=== PATIENT | male | born 1955 | race Caucasian/White ===

== ENCOUNTER → 2017-07-12 | Outpatient (REF) | payer MEDICARE ==
[2017-07-12 14:52] LABS: OSMOLALITY URINE 365 MOSM/KG (500-800)
== END ==
LOC: M LAB REF 13:27
PROVIDERS: ATTEND Internal Medicine Nephrology
DX: E87.1 Hypo-osmolality and hyponatremia (principal)

== ENCOUNTER → 2017-08-22 | Outpatient (REF) | payer MEDICARE ==
[2017-08-22 13:36] LABS: OSMOLALITY URINE 221 MOSM/KG (500-800)
[2017-08-22 14:24] LABS: BACTERIA, URINE LARGE AMOUNT; HYALINE CAST, URINE NONE SEEN /lpf (0-1); MICROSCOPIC EXAM PERFORMED; RBC, URINE NONE SEEN /hpf (0-3); SQUAMOUS EPITHELIAL CELL URINE NONE SEEN /hpf (SMALL AMT)
== END ==
LOC: M LAB REF 13:13
PROVIDERS: ATTEND Internal Medicine Nephrology
DX: R31.29 Other microscopic hematuria (principal); N39.0 Urinary tract infection, site not specified; E87.1 Hypo-osmolality and hyponatremia; F10.20 Alcohol dependence, uncomplicated
CPT/HCPCS: 81015; 83935; 84300; 87086; 87205; G0480

== ENCOUNTER → 2018-01-10 | Outpatient (REF) | payer MEDICARE ==
[2018-01-10 13:57] LABS: ETHYL ALCOHOL (ETHANOL) 0.004 % (0.000-0.010)
[2018-01-11 08:50] LABS: CORTISOL BASELINE 14.9 UG/DL (4.3-22.4)
== END ==
LOC: M LAB REF 12:51
DX: E87.1 Hypo-osmolality and hyponatremia (principal)
CPT/HCPCS: G0480

== ENCOUNTER 2020-06-30 05:19 | Emergency (ER) | payer MEDICARE, MEDICAID ==
[~2020-06-30] VITALS: Ht 188 cm; Wt 111.3 kg
[2020-06-30] MEDS ORDERED: DIVA500T94 PO (05:37)
[2020-06-30] MEDS ORDERED: GABA-843 PO (05:37)
[2020-06-30] MEDS ORDERED: PRAV80TA2 PO (05:37)
[2020-06-30] MEDS ORDERED: COMBAER6 INH (05:37)
[2020-06-30] MEDS ORDERED: ESOM40CA35 PO (05:37)
[2020-06-30] MEDS ORDERED: TRAZ-252 PO (05:37)
[2020-06-30] MEDS ORDERED: ANOR1AER PO (05:37)
[2020-06-30] MEDS ORDERED: TAMS1CAP17 PO (05:37)
[2020-06-30] MEDS ORDERED: SILD20TA11 PO (05:37)
[2020-06-30] MEDS ORDERED: LISI40TA PO (05:37)
[2020-06-30] MEDS ORDERED: AMLO1TAB25 PO (05:37)
[2020-06-30 06:15] VITALS: BP 104/63
== END 2020-06-30 07:12 | disposition left against medical advice (07) ==
LOC: M ED 05:19
DX: E87.1 Hypo-osmolality and hyponatremia (principal); F10.20 Alcohol dependence, uncomplicated; Z53.9 Procedure and treatment not carried out, unspecified reason; I10 Essential (primary) hypertension; E78.5 Hyperlipidemia, unspecified; J44.9 Chronic obstructive pulmonary disease, unspecified; K21.9 Gastro-esophageal reflux disease without esophagitis; Z87.891 Personal history of nicotine dependence; Z88.6 Allergy status to analgesic agent; Z88.1 Allergy status to other antibiotic agents; Z79.899 Other long term (current) drug therapy

== ENCOUNTER 2020-07-03 20:11 | Inpatient (IN) | payer MEDICARE, MEDICAID ==
[~2020-07-03] VITALS: Ht 188 cm; Wt 102.3 kg
[~2020-07-03 20:11] MED LIST: AMLO1TAB25 PO; ANOR1AER PO; COMBAER6 INH; DIVA500T94 PO; ESOM40CA35 PO; GABA-843 PO; LISI40TA PO; PRAV80TA2 PO; SILD20TA11 PO; TAMS1CAP17 PO; TRAZ-252 PO
[2020-07-03] MEDS ORDERED: LORazepam 2 MG TAB PO PRN (20:45)
[2020-07-03 21:25] LABS: HEMATOCRIT 38.5 % (42.0-52.0); HEMOGLOBIN 13.1 g/dl (13.5-17.5); MEAN CORPUSCULAR HEMOGLOBIN 32.4 pg (27.0-33.0); MEAN CORPUSCULAR VOLUME 95.3 fl (80.0-96.0); PLATELET COUNT, AUTOMATED 275 10^3/uL (150-450); RED BLOOD COUNT 4.04 10^6/uL (4.30-6.10); WHITE BLOOD COUNT 5.3 10^3/uL (4.0-10.0)
[2020-07-03] MEDS: MULTIVITAMINS/MINERALS THERAP 1 TAB PO SCH (21:38)
[2020-07-03] MEDS: THIAMINE 100 MG TAB PO SCH (21:38)
[2020-07-03] MEDS: FOLIC ACID 1 MG TAB PO SCH (21:38)
[2020-07-03 22:00] LABS: ACETAMINOPHEN LEVEL < 2.0 UG/ML (10.0-30.0); ALBUMIN 3.7 GM/DL (3.2-5.2); ALT/SGPT 34 U/L (12-78); BILIRUBIN,DIRECT 0.2 MG/DL (0.0-0.2); BILIRUBIN,TOTAL 0.4 MG/DL (0.2-1.0); BLOOD UREA NITROGEN 6 MG/DL (7-18); CALCIUM LEVEL 8.5 MG/DL (8.8-10.2); CARBON DIOXIDE LEVEL 24 MEQ/L (21-32); CHLORIDE LEVEL 98 MEQ/L (98-107); CREATININE FOR GFR 0.67 MG/DL (0.70-1.30); ETHYL ALCOHOL (ETHANOL) 0.219 % (0.000-0.010); GLOMERULAR FILTRATION RATE > 60.0 (>49); GLUCOSE, FASTING 88 MG/DL (70-100); POTASSIUM SERUM 4.1 MEQ/L (3.5-5.1); SALICYLATE LEVEL 6.4 MG/DL (5.0-30.0); SODIUM LEVEL 131 MEQ/L (136-145); THYROID STIMULATING HORMONE 0.584 uIU/ML (0.358-3.740); TOTAL PROTEIN 6.7 GM/DL (6.4-8.2)
[2020-07-03 22:23] LABS: AMPHETAMINES LEVEL URINE NEGATIVE (NEGATIVE); BARBITURATES URINE NEGATIVE (NEGATIVE); BENZODIAZEPINES URINE NEGATIVE (NEGATIVE); CANNABINOIDS URINE POSITIVE (NEGATIVE); COCAINE METABOLITE URINE NEGATIVE (NEGATIVE); METHADONE URINE NEGATIVE (NEGATIVE); OPIATES URINE NEGATIVE (NEGATIVE); PHENCYCLIDINE URINE NEGATIVE (NEGATIVE)
--- NOTE | 2020-07-04 07:16 | ECGEPIP ---
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
[2020-07-04] MEDS ORDERED: MULTIVITAMINS/MINERALS THERAP 1 TAB PO SCH (09:00)
[2020-07-04] MEDS ORDERED: OMEPRAZOLE 20 MG CAP PO ONE (09:00)
[2020-07-04] MEDS ORDERED: FOLIC ACID 1 MG TAB PO SCH (09:00)
[2020-07-04] MEDS ORDERED: TAMSULOSIN 0.4 MG CAP PO ONE (09:00)
[2020-07-04] MEDS ORDERED: amLODIPine 10 MG TAB PO ONE (09:00)
[2020-07-04] MEDS: THIAMINE 100 MG TAB PO SCH ×2 (09:18→21:00)
[2020-07-04] MEDS ORDERED: ASPI81TA26 PO (09:59)
--- NOTE | 2020-07-04 10:39 | REPVR ---
PROCEDURE INFORMATION: Exam: XR Chest, 1 View Exam date and time: 07/04/2020 10:13 AM Age: 65 years old Clinical indication: Cough TECHNIQUE: Imaging protocol: XR of the chest Views: 1 view. COMPARISON: No relevant prior studies available. FINDINGS: Lungs: Unremarkable. No consolidation. Pleural space: Unremarkable. No pleural effusion. No pneumothorax. Heart/Mediastinum: Unremarkable. No cardiomegaly. Bones/joints: Unremarkable. IMPRESSION: No evidence for acute pulmonary disease. Electronically signed by: Yves Fitzpatrick On 07/04/2020 10:38:53 AM
[2020-07-04] MEDS ORDERED: ONDANSETRON 4 MG ORAL DISINTEGRATING TAB PO ONE (11:15)
[2020-07-04] MEDS ORDERED: OXAZEPAM 15 MG CAP PO ONE (11:15)
[2020-07-04] MEDS: SYMBICORT 80/4.5MCG INHALER 6GM INH SCH ×2 (11:26→20:00)
[2020-07-04] MEDS: MULTIVITAMINS/MINERALS THERAP 1 TAB PO SCH (21:00)
[2020-07-04] MEDS: FOLIC ACID 1 MG TAB PO SCH (21:00)
[2020-07-04] MEDS ORDERED: traZODone 50 MG TAB PO ONE (22:45)
[2020-07-05] MEDS ORDERED: OXAZEPAM 15 MG CAP PO STA (08:26)
[2020-07-05] MEDS: THIAMINE 100 MG TAB PO SCH ×2 (08:37→20:11)
[2020-07-05] MEDS: SYMBICORT 80/4.5MCG INHALER 6GM INH SCH (08:44)
[2020-07-05] MEDS ORDERED: GABAPENTIN 300 MG CAP PO SCH (09:00)
[2020-07-05] MEDS ORDERED: THIAMINE 100 MG TAB PO SCH (09:00)
[2020-07-05] MEDS ORDERED: DIVALPROEX 500 MG TAB PO SCH (09:00)
[2020-07-05] MEDS ORDERED: ASPIRIN 81 MG ENTERIC TAB PO SCH (09:00)
[2020-07-05] MEDS ORDERED: TAMSULOSIN 0.4 MG CAP PO SCH (09:00)
[2020-07-05] MEDS ORDERED: ACETAMINOPHEN TAB 650MG DOSE (2X325MG) PO PRN (12:45)
[2020-07-05] MEDS ORDERED: LORazepam 2 MG TAB PO PRN (12:45)
[2020-07-05] MEDS ORDERED: MAALOX 30 ML SUSP *UDC PO PRN (12:45)
[2020-07-05] MEDS ORDERED: MOM 30ML SUSPENSION UDC PO PRN (12:45)
[2020-07-05] MEDS ORDERED: COMBIVENT RESPIMAT 100-20MCG INHALER 4GM INH PRN (15:00)
[2020-07-05] MEDS: TIOTROPIUM INHALER/CAPSULE (SPIRIVA) INH SCH (15:44)
[2020-07-05] MEDS: DIVALPROEX 500 MG TAB PO SCH ×2 (15:45→20:10)
[2020-07-05 15:55] VITALS: BP 148/108
[2020-07-05 15:57] VITALS: BP 148/108
[2020-07-05] MEDS: SALMETEROL DISKUS 50MCG INHALER (SEREVENT) INH SCH (20:06)
[2020-07-05] MEDS: PRAVASTATIN 20 MG TAB PO SCH (20:07)
[2020-07-05] MEDS: amLODIPine 10 MG TAB PO SCH (20:08)
[2020-07-05] MEDS: traZODone 50 MG TAB PO SCH (20:09)
[2020-07-05] MEDS: GABAPENTIN 300 MG CAP PO SCH (20:10)
[2020-07-05] MEDS: FOLIC ACID 1 MG TAB PO SCH (20:11)
[2020-07-05] MEDS: lisinopriL 40 MG TAB PO SCH (20:11)
[2020-07-05] MEDS ORDERED: traZODone 50 MG TAB PO ONE (21:00)
[2020-07-05] MEDS ORDERED: amLODIPine 10 MG TAB PO SCH (21:00)
[2020-07-05] MEDS ORDERED: lisinopriL 40 MG TAB PO SCH (21:00)
[2020-07-05] MEDS ORDERED: PRAVASTATIN 20 MG TAB PO SCH (21:00)
[2020-07-05] MEDS ORDERED: traZODone 50 MG TAB PO SCH (21:00)
[2020-07-06] VITALS: BP 158/98
[2020-07-06 06:32] VITALS: BP 138/64
[2020-07-06] MEDS: TIOTROPIUM INHALER/CAPSULE (SPIRIVA) INH SCH (07:36)
[2020-07-06] MEDS ORDERED: MULTIVITAMINS/MINERALS THERAP 1 TAB PO SCH (09:00)
[2020-07-06] MEDS: NICOTINE 14 MG/24 HR TRANSDERMAL TD SCH (09:00)
[2020-07-06 09:20] VITALS: BP 119/83
[2020-07-06] MEDS: SALMETEROL DISKUS 50MCG INHALER (SEREVENT) INH SCH ×2 (09:24→20:16)
[2020-07-06] MEDS: DIVALPROEX 500 MG TAB PO SCH ×3 (09:25→20:15)
[2020-07-06] MEDS: TAMSULOSIN 0.4 MG CAP PO SCH (09:25)
[2020-07-06] MEDS: GABAPENTIN 300 MG CAP PO SCH ×2 (09:25→20:15)
[2020-07-06] MEDS: ASPIRIN 81 MG ENTERIC TAB PO SCH (09:25)
[2020-07-06] MEDS: THIAMINE 100 MG TAB PO SCH (09:26)
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
[2020-07-06] MEDS ORDERED: NICOTINE POLACRILEX 2 MG GUM PO PRN (15:30)
--- NOTE | 2020-07-06 15:40 | HPEPDOC ---
[facility] Medical History & Physical Date of Admission Jul 06, 2020 Date of Service: Jul 06, 2020 History and Physical CHIEF COMPLAINT: Dysuria. Urine retention, difficulty starting urine HISTORY OF PRESENT ILLNESS: 65-year-old with history of BPH, chronic urine retention previously treated for a urinary tract infection and required a Villatoro catheter for urine retention in October 2019, currently admitted to the inpatient mental health unit and now complains of dysuria for the past 3 days, Insomnia for the past 2 days, not alleviated with trazodone. Still complains of difficulty starting and maintaining a urine despite using tamsulosin and urology follow-up. He denies any hematuria, fever, chills, flank pain. He denies any recent urinary catheter placement, cystoscopy, or other urologic procedures. PAST MEDICAL HISTORY: Benign prostatic hypertrophy, chronic Urine retention requiring Villatoro catheter placement in October 2019, degenerative joint disease, reflux, COPD, dyslipidemia, hypertension, bipolar disorder, urinary tract infection, chronic hyponatremia HOME MEDICATIONS: Depakote 500 mg 3 times a day, Norvasc 10 mg daily, trazodone 100 mg, 150 mg daily at bedtime pravastatin 80 mg daily, lisinopril 40 mg daily, pro-air HFA 108 g per actuation 2 puffs when necessary every 4 hourly. Symbicort 1604.5 g actuation, 1 Daily, sodium chloride 1 g twice a day famotidine 40 mg daily at bedtime, multivitamin, Combivent rescue mount 1 puff 4 times daily. Tamsulosin 0.4 daily PAST SURGICAL HISTORY: None SOCIAL HISTORY: from his since November 2019. Uses occasional marijuana. Disabled. , Drinks heavily at times, 10-15 beers a day when he is stressed out. Smokes a pack a day for the past 40 years. FAMILY HISTORY: Father age 65. Lung cancer. Mother , 60 years old, hypertension and unspecified heart disease. One brother with prostate issues. 2 sisters, one daughter healthy ALLERGIES: Please see below. REVIEW OF SYSTEMS: 12 point systems review negative aside from positive findings on HPI HOME MEDICATIONS: Please see below. PHYSICAL EXAMINATION: VITAL SIGNS: See below GENERAL APPEARANCE: HEENT: Normocephalic, atraumatic. Pupils equally round, reactive to light and accommodation. Extraocular muscles are intact. His mucous membranes. No JVD, no thyromegaly, no cervical lymphadenopathy CARDIOVASCULAR: S1, S2, regular rate and rhythm. No murmurs, rubs or gallops. LUNGS: Air entry is equal bilaterally. Clear to auscultation. No wheezing, rales or rhonchi. No adventitious breath sounds ABDOMEN: Bowel sounds 4 quadrants, soft, nontender, nondistended. No hepatosplenomegaly. No abdominal bruit MUSCULOSKELETAL: No cyanosis, clubbing or pitting edema LABORATORY DATA: See below. ASSESSMENT: 65-year-old with history of BPH, chronic urine retention previously treated for a urinary tract infection and required a Villatoro catheter for urine retention in October 2019, currently admitted to the inpatient mental health unit and now complains of dysuria for the past 3 days, Insomnia for the past 2 days, not alleviated with trazodone. Still complains of difficulty starting and maintaining a urine despite using tamsulosin and urology follow-up. He denies any hematuria, fever, chills, flank pain. He denies any recent urinary catheter placement, cystoscopy, or other urologic procedures. Staph epidermidis in Urine culture bipolar disorder Benign prostatic hypertrophy chronic Urine retention degenerative joint disease reflux COPD dyslipidemia hypertension Insomnia Chronic hyponatremia Active Tobacco Abuse ETOH Abuse PLAN: It is unclear whether the patient had a contaminated sample, causing staph epi in his urine culture versus an actual infection. He denies fever or chills but does complain of dysuria, without urgency, frequency, flank pain or or hematuria. Patient will be given a 7 day course of doxycycline 100 twice a day, as well as Bacid twice a day with meals to decrease risk of C. difficile infection. Agent is to follow up with his urologist at hospital discharge. He can be resumed on all his home medications. Tobacco cessation counseling has been provided as well as nicotine supplement. Monitor for withdrawal. Due to history of alcohol abuse. Patient is on trazodone for insomnia. Hospitalist will signoff. Please reconsult for acute medical issues Vital Signs Vital Signs Date Time Temp Pulse Resp B/P (MAP) Pulse Ox O2 Delivery O2 Flow Rate FiO2 07/06/20 09:20 66 119/83 07/06/20 06:32 97.3 18 07/05/20 15:55 96 Room Air Laboratory Data Microbiology Microbiology 07/04/20 Urine Culture - Final, Complete Staphylococcus Epidermidis Home Medications Scheduled Amlodipine Besylate (Amlodipine Besylate) 10 Mg Tablet, 10 MG PO QHS Aspirin (Aspirin EC) 81 Mg Tablet.dr, 81 MG PO DAILY Divalproex Sodium (Divalproex Sodium) 500 Mg Tablet.dr, 500 MG PO TID Esomeprazole Magnesium (Esomeprazole Magnesium Dr) 40 Mg Capsule.dr, 40 MG PO DAILY Gabapentin (Gabapentin) 300 Mg Capsule, 300 MG PO BID Lisinopril (Lisinopril) 40 Mg Tablet, 40 MG PO QHS Pravastatin Sodium (Pravastatin Sodium) 80 Mg Tablet, 80 MG PO QHS Sildenafil Citrate (Sildenafil Citrate) 20 Mg Tablet, 20 MG PO PRN Tamsulosin Hcl (Tamsulosin HCl) 0.4 Mg Capsule, 0.4 MG PO DAILY Trazodone HCl (Trazodone HCl) 50 Mg Tablet, 150 MG PO QHS Umeclidinium Brm/Vilanterol Tr (Anoro Ellipta 62.5-25 Mcg INH) 1 Each Blst.w.dev, 1 INH PO DAILY Scheduled PRN Ipratropium/Albuterol Sulfate (Combivent Respimat 20-100 Mcg) 4 Gm Mist.inhal, 1 PUFF INH QID PRN for SHORTNESS OF BREATH Allergies Coded Allergies: tramadol (Verified Allergy, Unknown, 06/30/20) varenicline (Verified Allergy, Unknown, 06/30/20) A-FIB/CHADSVASC A-FIB History Current/History of A-Fib/PAF?: No Current PO Anticoag Therapy: No Age/Risk Factor Scoring CHADSVASC: CHADSVASC Response (Comments) Value Age Risk Factor Age < 65 years old 0 Gender Risk Factor Male 0 Hx of CHF No 0 Hx of HTN Yes 1 Hx of Stroke/TIA/or VTE No 0 Hx of Diabetes No 0 Hx of Vascular Disease No 0 Total 1 Treatment Treatment ordered: NONE EH CROOK MD Jul 06, 2020 15:10
[2020-07-06 16:43] VITALS: BP 140/90
[2020-07-06] MEDS: FOLIC ACID 1 MG TAB PO SCH (20:15)
[2020-07-06] MEDS: traZODone 50 MG TAB PO SCH (20:15)
[2020-07-06] MEDS: DOXYCYCLINE HYCLATE 100MG TABLET PO SCH (20:16)
[2020-07-06] MEDS: lisinopriL 40 MG TAB PO SCH (20:16)
[2020-07-06] MEDS: amLODIPine 10 MG TAB PO SCH (20:16)
[2020-07-06] MEDS: PRAVASTATIN 20 MG TAB PO SCH (20:17)
[2020-07-06] MEDS: OLANZapine ORAL DISINTEGRATING TAB 5MG PO PRN (23:38)
[2020-07-07] VITALS: BP 163/98
[2020-07-07 06:00] VITALS: BP 131/72
[2020-07-07 06:29] VITALS: BP 131/72
[2020-07-07] MEDS: TIOTROPIUM INHALER/CAPSULE (SPIRIVA) INH SCH (07:38)
[2020-07-07] MEDS: NICOTINE 14 MG/24 HR TRANSDERMAL TD SCH (08:12)
[2020-07-07] MEDS: SALMETEROL DISKUS 50MCG INHALER (SEREVENT) INH SCH ×2 (08:13→20:41)
[2020-07-07] MEDS: DIVALPROEX 500 MG TAB PO SCH ×3 (08:14→20:42)
[2020-07-07] MEDS: GABAPENTIN 300 MG CAP PO SCH ×2 (08:14→20:41)
[2020-07-07] MEDS: TAMSULOSIN 0.4 MG CAP PO SCH (08:14)
[2020-07-07] MEDS: DOXYCYCLINE HYCLATE 100MG TABLET PO SCH ×2 (08:14→20:41)
[2020-07-07] MEDS: ASPIRIN 81 MG ENTERIC TAB PO SCH (08:15)
--- NOTE | 2020-07-07 10:58 | MHIPNPDOC ---
[facility] Progress Note Progress Note DATE OF SERVICE: 07/07/20 Subjective HPI: The patient has met with today. He reports he is doing quite well feeling much improved since his admission started. Reports he has no other issues and feels ready to return home. Objective Appearance: Appears to be stated age. Well nourished. Well groomed. Behavior: Pleasant. Engaged. Cooperative with good eye contact. Affect: Appropriate to context. Full range. Mood: Euthymic. Generally good. Appropriately reactive. Speech: Normal volume. Spontaneous and Fluid. Normal rate. Motor: No gross motor abnormalities. Cognition: Alert, Attentive, and Oriented to person, place, time. Memory: No formal testing. No gross abnormalities of short or group home memory noted during interview. Thought Form: Linear and goal directed. Thought Content: No evidence of suicidal ideation. No evidence of aggressive or homicidal ideation. No evidence of delusions. No thoughts of self harm. Perception: No perceptual abnormalities noted. Judgement: Intact as evidenced by decision making in the recent past. Insight: Good insight into symptoms and treatment options. Assessment F32.89 Other specified depressive episodes F10.188 Alcohol abuse with other alcohol-induced disorder Plan Continue Gabapentin Depakote Discharged tomorrow. Vital Signs Vital Signs Date Time Temp Pulse Resp B/P (MAP) Pulse Ox O2 Delivery O2 Flow Rate FiO2 07/07/20 06:29 97.7 58 18 131/72 (91) 07/05/20 15:55 96 Room Air Current Medications Current Medications Medications (Trade) Dose Ordered Sig/Blayne Route PRN Reason Start Time Stop Time Status Last Admin Dose Admin Acetaminophen (Tylenol Tab) 650 mg Q6HP PRN PO HEADACHE or DISCOMFORT 07/05/20 12:45 Al Hydrox/Mg Hydrox/Simethicone (Mylanta) 30 ml Q4HP PRN PO HEARTBURN/INDIGESTION 07/05/20 12:45 Albuterol/ Ipratropium (Combivent Respimat 100-20mcg) 1 puff QID PRN INH SHORTNESS OF BREATH 07/05/20 15:00 Amlodipine Besylate (Norvasc) 10 mg QHS PO 07/05/20 21:00 07/05/20 15:08 DC Amlodipine Besylate (Norvasc) 10 mg QHS PO 07/05/20 21:00 07/06/20 20:16 Aspirin (Ecotrin) 81 mg DAILY PO 07/05/20 09:00 07/05/20 15:08 DC 07/05/20 08:38 Aspirin (Ecotrin) 81 mg DAILY PO 07/06/20 09:00 07/07/20 08:15 Budesonide/ Formoterol Fumarate (Symbicort 80/ 4.5mcg) 2 puff RBID INH 07/04/20 08:00 07/05/20 15:19 DC 07/05/20 08:44 Divalproex Sodium (Depakote) 500 mg TID PO 07/05/20 09:00 07/05/20 15:08 DC 07/05/20 08:38 Divalproex Sodium (Depakote) 500 mg TID PO 07/05/20 16:00 07/07/20 08:14 Doxycycline Hyclate (Vibramycin) 100 mg BID PO 07/06/20 21:00 07/13/20 09:01 07/07/20 08:14 Folic Acid (Folic Acid) 1 mg DAILY PO 07/04/20 09:00 07/03/20 21:11 DC Folic Acid (Folic Acid) 1 mg DAILY@2100 PO 07/03/20 21:00 07/05/20 12:55 DC 07/04/20 21:00 Folic Acid (Folic Acid) 1 mg DAILY@2100 PO 07/05/20 21:00 07/06/20 20:15 Gabapentin (Neurontin) 300 mg BID PO 07/05/20 09:00 07/05/20 15:08 DC 07/05/20 08:38 Gabapentin (Neurontin) 300 mg BID PO 07/05/20 21:00 07/07/20 08:14 Home Med (Med Rec Complete!) ASDIRECTED XX 07/04/20 10:00 07/04/20 10:00 DC Lisinopril (Prinivil) 40 mg QHS PO 07/05/20 21:00 07/05/20 15:08 DC Lisinopril (Prinivil) 40 mg QHS PO 07/05/20 21:00 07/06/20 20:16 Lorazepam (Ativan) 2 mg ASDIRECTED PRN PO SEE PROTOCOL 07/03/20 20:45 07/05/20 12:52 DC 10/11/20 03:26 Lorazepam (Ativan) 2 mg ASDIRECTED PRN PO SEE PROTOCOL 07/05/20 12:45 Cancel Magnesium Hydroxide (Milk Of Magnesia) 30 ml DAILYPRN PRN PO CONSTIPATION 07/05/20 12:45 Multivitamins (Theragram-M) 1 tab DAILY PO 07/04/20 09:00 07/03/20 21:12 DC Multivitamins (Theragram-M) 1 tab DAILY PO 07/06/20 09:00 07/06/20 15:49 DC 07/06/20 09:25 Multivitamins (Theragram-M) 1 tab DAILY@1200 PO 07/07/20 12:00 Multivitamins (Theragram-M) 1 tab DAILY@2100 PO 07/03/20 21:00 07/05/20 12:54 DC 07/04/20 21:00 Nicotine (Nicoderm Cq 14mg) 1 patch DAILY TD 07/06/20 09:00 Nicotine (Nicorette) 2 mg Q2HP PRN PO NICOTINE WITHDRAWAL 07/06/20 15:30 Olanzapine (ZyPREXA ZYDIS) 5 mg Q6HP PRN PO ANXIETY/AGITATION 07/06/20 00:00 07/06/20 23:38 Oxazepam (Serax) 30 mg STAT STAT PO 07/05/20 08:26 07/05/20 08:27 DC 07/05/20 08:37 Pravastatin Sodium (Pravachol) 80 mg QHS PO 07/05/20 21:00 07/05/20 15:08 DC Pravastatin Sodium (Pravachol) 80 mg QHS PO 07/05/20 21:00 07/06/20 20:17 Salmeterol Xinafoate (Serevent Diskus) 1 puff BID INH 07/05/20 21:00 07/07/20 08:13 Tamsulosin HCl (Flomax) 0.4 mg DAILY PO 07/05/20 09:00 07/05/20 15:08 DC 07/05/20 08:38 Tamsulosin HCl (Flomax) 0.4 mg DAILY PO 07/06/20 09:00 07/07/20 08:14 Thiamine HCl (Thiamine HCl) 100 mg BID PO 07/03/20 21:00 07/05/20 12:53 DC 07/05/20 08:37 Thiamine HCl (Thiamine HCl) 100 mg BID PO 07/05/20 09:00 07/05/20 12:53 DC Thiamine HCl (Thiamine HCl) 100 mg BID PO 07/05/20 21:00 07/06/20 09:01 DC 07/06/20 09:26 Tiotropium [place] (Spiriva Handihaler) 1 inhalation DAILY@08 INH 07/05/20 08:00 07/07/20 07:38 Trazodone HCl (Desyrel) 150 mg QHS PO 07/05/20 21:00 07/05/20 13:53 DC Trazodone HCl (Desyrel) 150 mg QHS PO 07/05/20 21:00 07/06/20 20:15 Allergies Coded Allergies: tramadol (Verified Allergy, Unknown, 06/30/20) varenicline (Verified Allergy, Unknown, 06/30/20) ALEXA COLÓN DO Jul 07, 2020 10:58
[2020-07-07] MEDS: MULTIVITAMINS/MINERALS THERAP 1 TAB PO SCH (11:42)
[2020-07-07 16:55] VITALS: BP 122/68
[2020-07-07 20:41] VITALS: BP 148/98
[2020-07-07] MEDS: OLANZapine ORAL DISINTEGRATING TAB 5MG PO PRN (20:41)
[2020-07-07] MEDS: amLODIPine 10 MG TAB PO SCH (20:41)
[2020-07-07] MEDS: traZODone 50 MG TAB PO SCH (20:42)
[2020-07-07] MEDS: lisinopriL 40 MG TAB PO SCH (20:42)
[2020-07-07] MEDS: PRAVASTATIN 20 MG TAB PO SCH (20:42)
[2020-07-07] MEDS: FOLIC ACID 1 MG TAB PO SCH (20:42)
[2020-07-08 06:28] VITALS: BP 140/94
[2020-07-08] MEDS: DOXYCYCLINE HYCLATE 100MG TABLET PO SCH (08:48)
[2020-07-08] MEDS: SALMETEROL DISKUS 50MCG INHALER (SEREVENT) INH SCH (08:48)
[2020-07-08] MEDS: TAMSULOSIN 0.4 MG CAP PO SCH (08:48)
[2020-07-08] MEDS: GABAPENTIN 300 MG CAP PO SCH (08:49)
[2020-07-08] MEDS: DIVALPROEX 500 MG TAB PO SCH (08:49)
[2020-07-08] MEDS: ASPIRIN 81 MG ENTERIC TAB PO SCH (08:49)
[2020-07-08] MEDS: TIOTROPIUM INHALER/CAPSULE (SPIRIVA) INH SCH (08:50)
[2020-07-08] MEDS: NICOTINE 14 MG/24 HR TRANSDERMAL TD SCH (08:50)
--- NOTE | 2020-07-08 09:43 | MHDSPDOC ---
[facility] Discharge Summary Discharge Summary DATE OF ADMISSION: Jul 05, 2020 at 12:40 DATE OF DISCHARGE: Jul 08, 2020 at 13:20 DISCHARGE DIAGNOSES: F43.25 Adjustment disorder with mixed disturbance of emotions and conduct F10.929 Alcohol use, unspecified with intoxication, unspecified CONSULTANTS INVOLVED:[ None (basic hospitalist screening)] REASON FOR ADMISSION & TREATMENT AND PROGRESS ON THE UNIT : Levi was admitted to inpatient unit, where he generally did okay. He notably had alcohol and stress as major contributing factor. He did well in the unit, recovered quite quickly, became social and engaged, and eventually was triaged for discharge without major behavioral problems. He was open to going back to AA. MEDICATIONS: He has resumed at home, Depakote and Gabapentin without incident. He tolerated his meds well and subsequently did well DISCHARGE ASSESSMENT[improved] Legal status considerations: The patient at the time of discharge did not meet criteria for involuntary admission/extension due to having a [normal] mental status exam, [fair] insight into the situation, They are engaged in the discharge process, as well as being friendly and amenable in behavioral control and havent been engaging in any observed concerning behavior or ideation recently. They decline voluntary extension/admission at this time and must be discharged in good kell[place], as Im unable to make a case for holding the patient against their will. They may have historical risk factors of admissions and other interactions with psychiatry however, those are not modifiable from a clinical perspective. The patient will need to be discharged in good kellie. MENTAL STATUS EXAMINATION ON DISCHARGE: [General: Well dressed with good hygiene Speech: Spontaneous and fluid Thought processes: Linear and logical Thought content: Future orientated Abstract reasoning, and computation: Intact Description of associations: Intact Description of abnormal or psychotic thoughts:Denies any suicidal or homicidal ideation. Denies any auditory or visual hallucinations. Does not appear to be responding to internal stimuli. Does not appear to be endorsing any bizarre or paranoid ideation. Judgment: fair Insight: fair Orientation: Alert and orientated 3 Recent and remote memory: Intact Attention span and concentration: Intact Fund of knowledge: Adequate Mood: "okay" Affect: Euthymic with a full range] PLAN/FOLLOWUP ARRANGEMENTS: Follow up appointments made (PCP and MH in 5 days of D/C date) and safety plan completed. Safety Planning aspects completed prior to discharge [Family contact completed, educated on safe practices, instructed on removal and mitigation of dangerous means] [RN reviewed crisis hotline information and other aspects to empower patient to access care in interim before next appointment.] The amount of time spent in the coordination of care for this patient was chantelle roximately 30 minutes. Vital Signs/I&Os Vital Signs Date Time Temp Pulse Resp B/P (MAP) Pulse Ox O2 Delivery O2 Flow Rate FiO2 07/08/20 06:28 97.4 74 18 140/94 (109) 07/05/20 15:55 96 Room Air Laboratory Data Microbiology Microbiology 07/04/20 Urine Culture - Final, Complete Staphylococcus Epidermidis Medications Scheduled Amlodipine Besylate (Amlodipine Besylate) 10 Mg Tablet, 10 MG PO QHS, (Reported) Aspirin (Aspirin EC) 81 Mg Tablet.dr, 81 MG PO DAILY, (Reported) Divalproex Sodium (Divalproex Sodium) 500 Mg Tablet.dr, 500 MG PO TID, (Reported) Doxycycline Hyclate (Doxycycline Hyclate) 100 Mg Tablet, 100 MG PO BID for uti for 5 Days, #10 Esomeprazole Magnesium (Esomeprazole Magnesium Dr) 40 Mg Capsule.dr, 40 MG PO DAILY, (Reported) Gabapentin (Gabapentin) 300 Mg Capsule, 300 MG PO BID, (Reported) Lisinopril (Lisinopril) 40 Mg Tablet, 40 MG PO QHS, (Reported) Pravastatin Sodium (Pravastatin Sodium) 80 Mg Tablet, 80 MG PO QHS, (Reported) Sildenafil Citrate (Sildenafil Citrate) 20 Mg Tablet, 20 MG PO PRN, (Reported) Tamsulosin Hcl (Tamsulosin HCl) 0.4 Mg Capsule, 0.4 MG PO DAILY, (Reported) Trazodone HCl (Trazodone HCl) 50 Mg Tablet, 150 MG PO QHS, (Reported) Umeclidinium Brm/Vilanterol Tr (Anoro Ellipta 62.5-25 Mcg INH) 1 Each Blst.w.dev, 1 INH PO DAILY, (Reported) Scheduled PRN Ipratropium/Albuterol Sulfate (Combivent Respimat 20-100 Mcg) 4 Gm Mist.inhal, 1 PUFF INH QID PRN for SHORTNESS OF BREATH, (Reported) Allergies Coded Allergies: tramadol (Verified Allergy, Unknown, 06/30/20) varenicline (Verified Allergy, Unknown, 06/30/20) ALEXA COLÓN DO Jul 08, 2020 09:42
[2020-07-08] MEDS ORDERED: DOXY100T PO (11:35)
[2020-07-08] MEDS: MULTIVITAMINS/MINERALS THERAP 1 TAB PO SCH (11:56)
== END 2020-07-08 13:20 | disposition home or self-care (01) | DRG 885 ==
LOC: M ED 20:11 → M ED INP 07-05 12:40 → M PSY 07-05 14:00
PROVIDERS: ADMIT Psychiatry & Neurology Psychiatry; ATTEND Psychiatry & Neurology Addiction Medicine
DX: F32.89 Other specified depressive episodes (principal); E87.1 Hypo-osmolality and hyponatremia; F10.929 Alcohol use, unspecified with intoxication, unspecified; Z79.82 Long term (current) use of aspirin; Z79.899 Other long term (current) drug therapy; Z63.0 Problems in relationship with spouse or partner; N40.1 Benign prostatic hyperplasia with lower urinary tract symptoms; R33.9 Retention of urine, unspecified; M19.90 Unspecified osteoarthritis, unspecified site; K21.9 Gastro-esophageal reflux disease without esophagitis; J44.9 Chronic obstructive pulmonary disease, unspecified; E78.5 Hyperlipidemia, unspecified; I10 Essential (primary) hypertension; F17.200 Nicotine dependence, unspecified, uncomplicated

== ENCOUNTER 2020-09-18 03:52 | Emergency (ER) | payer MEDICARE, MEDICAID ==
[~2020-09-18] VITALS: Ht 188 cm; Wt 109.1 kg
[~2020-09-18 03:52] MED LIST changes: +ASPI81TA26 PO; +DOXY100T PO
[2020-09-18 05:08] LABS: BASO % 0.5 % (0.0-1.0); EOS # 0.3 10^3/uL (0.0-0.5); EOS % 3.7 % (0.0-3.0); HEMATOCRIT 39.1 % (42.0-52.0); LYMPH # 1.3 10^3/uL (1.5-5.0); LYMPH % 16.3 % (24.0-44.0); MEAN CORPUSCULAR HEMOGLOBIN 32.1 pg (27.0-33.0); MEAN CORPUSCULAR HGB CONC 33.2 g/dl (32.0-36.5); MEAN CORPUSCULAR VOLUME 96.5 fl (80.0-96.0); MONO # 0.8 10^3/uL (0.0-0.8); MONO % 10.8 % (0.0-5.0); NEUTROPHILS # 5.2 10^3/uL (1.5-8.5); NEUTROPHILS % 67.5 % (36.0-66.0); PLATELET COUNT, AUTOMATED 265 10^3/uL (150-450); RED BLOOD COUNT 4.05 10^6/uL (4.30-6.10); WHITE BLOOD COUNT 7.7 10^3/uL (4.0-10.0)
[2020-09-18 05:25] LABS: ALBUMIN 3.6 GM/DL (3.2-5.2); ALT/SGPT 13 U/L (12-78); BILIRUBIN,TOTAL 0.2 MG/DL (0.2-1.0); BLOOD UREA NITROGEN 15 MG/DL (7-18); CALCIUM LEVEL 9.7 MG/DL (8.8-10.2); CARBON DIOXIDE LEVEL 26 MEQ/L (21-32); CHLORIDE LEVEL 98 MEQ/L (98-107); CK-MB VALUE MASS 1.7 NG/ML (<3.6); CPK CREATINE PHOSPHOKINASE 69 U/L (39-308); CREATININE FOR GFR 0.73 MG/DL (0.70-1.30); GLOMERULAR FILTRATION RATE > 60.0 (>49); GLUCOSE, FASTING 113 MG/DL (70-100); LIPASE 197 U/L (73-393); MB/CK RELATIVE INDEX 2.46 (< OR =4); SODIUM LEVEL 132 MEQ/L (136-145); TOTAL PROTEIN 6.8 GM/DL (6.4-8.2); TROPONIN I < 0.02 NG/ML (< 0.10)
[2020-09-18] MEDS: MORPHINE 2 MG/ML 1ML VIAL (J2270) IV PRN ×2 (05:25→08:01)
[2020-09-18] MEDS ORDERED: ISOVUE-370 76% 100ML VIAL As Ordered ONE (05:39)
[2020-09-18] MEDS ORDERED: cefTRIAXone SOD 1 GM in D5W MINI-BAG PLUS 50 ML IV ONE (06:00)
[2020-09-18] MEDS ORDERED: CEFD300C PO ×2 (06:28→06:59)
--- NOTE | 2020-09-18 06:40 | REPVR ---
PROCEDURE INFORMATION: Exam: CT Abdomen and Pelvis with Contrast Exam date and time: 09/18/20 (5:42am) Age: 65 years old Clinical indication: Generalized abdominal pain TECHNIQUE: Imaging protocol: Computed tomography of the abdomen and pelvis with intravenous contrast. Radiation optimization: All CT scans at this facility use at least one of these dose optimization techniques: automated exposure control; mA and/or kV adjustment per patient size (includes targeted exams where dose is matched to clinical indication); or iterative reconstruction. Contrast material: Iso Contrast volume: 100 ml Contrast route: IV COMPARISON: No relevant prior studies available FINDINGS: Liver: No solid mass. Diffuse fatty infiltration. Gallbladder and bile ducts: Normal. No calcified stones. No ductal dilatation. Pancreas: Normal. No ductal dilatation. Spleen: Normal. No splenomegaly. Adrenal glands: Normal. No mass. Kidneys and ureters: No hydronephrosis. Bilateral renal cysts. Mild nonspecific bilateral perinephric fat stranding. Stomach and bowel: No bowel obstruction. No mucosal thickening. Multiple scattered colonic diverticuli (most numerous in the sigmoid). Appendix: No evidence of appendicitis. Intraperitoneal space: Unremarkable. No free air. No significant fluid collection. Vasculature: Atherosclerotic calcifications of the abdominal aorta and iliac arteries. No abdominal aortic aneurysm. Lymph nodes: Unremarkable. No enlarged lymph nodes. Urinary bladder: Villatoro catheter in place. Urinary bladder not optimally distended. Reproductive: Unremarkable as visualized. Bones/joints: No acute fracture. Lumbar spine degenerative changes. Significant disc space narrowing at the L5-S1 level. Soft tissues: Unremarkable. IMPRESSION: No definite acute pathology. No bowel obstruction. No free air. No abscess. No hydronephrosis. Bilateral nonspecific perinephric stranding -- perhaps a chronic change. Cannot exclude pyelonephritis, eg. Clinical and urinalysis correlation are suggested. Electronically signed by: Janie Billingsley On 09/18/2020 06:40:04 AM
[2020-09-18] MEDS ORDERED: PERC5TAB12 PO (07:33)
[2020-09-18 15:24] VITALS: BP 153/86
--- NOTE | 2020-09-18 18:19 | ECGEPIP ---
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
[2020-09-20] MEDS ORDERED: CIPR-249 PO (18:06)
== END 2020-09-18 15:26 | disposition home or self-care (01) ==
LOC: M ED 03:52
DX: R33.9 Retention of urine, unspecified (principal); N30.90 Cystitis, unspecified without hematuria; J44.9 Chronic obstructive pulmonary disease, unspecified; I10 Essential (primary) hypertension; F12.10 Cannabis abuse, uncomplicated; F17.200 Nicotine dependence, unspecified, uncomplicated; F31.9 Bipolar disorder, unspecified; E78.5 Hyperlipidemia, unspecified; Z79.82 Long term (current) use of aspirin; Z79.899 Other long term (current) drug therapy; Z79.51 Long term (current) use of inhaled steroids; Z88.6 Allergy status to analgesic agent; Z88.8 Allergy status to other drugs, medicaments and biological substances
CPT/HCPCS: 51702; 74177; 80053; 81001; 82550; 82553; 83605; 83690; 84484; 85025; 87088; 87186; 93005; 96365; 96366; 96375; 96376; 99285; J0696; J2270; Q9967

== ENCOUNTER → 2020-10-13 | Outpatient (CLI) | payer MEDICARE, MEDICAID ==
[~2020-10-13] MED LIST changes: +CEFD300C PO; +CIPR-249 PO; +GABA-282 PO; -GABA-843 PO; -LISI40TA PO; +LISI40TA4 PO; +PERC5TAB12 PO
== END ==
LOC: M LAB 11:14
PROVIDERS: ATTEND Urology
DX: Z12.5 Encounter for screening for malignant neoplasm of prostate (principal); Z79.899 Other long term (current) drug therapy

== ENCOUNTER → 2020-11-17 | Outpatient (REF) | payer MEDICARE, MEDICAID ==
[~2020-11-17] MED LIST changes: +MAGN1CAP PO; +VITAD400CA FT
== END ==
LOC: M SMT 12:50
PROVIDERS: ATTEND Urology
DX: N30.00 Acute cystitis without hematuria (principal)

== ENCOUNTER → 2020-12-01 | Outpatient (CLI) | payer MEDICARE, MEDICAID ==
--- NOTE | 2020-12-01 11:05 | REP ---
INDICATION: RADICULOPATHY PT IS ON SCOOTER. COMPARISON: Comparison is made with images from abdominal CT scanning dated September 18, 2020.. TECHNIQUE: Sagittal and axial T1 and T2-weighted scans are acquired in the usual fashion with and without fat saturation. Sequences include spin echo, turbo spin-echo, and STIR imaging sequences. FINDINGS: There is straightening of the normal lumbar lordosis. Lumbar vertebral body heights are preserved. There is a lower pole cyst in the left kidney. No other extra spinal abnormality is observed. Tip of the conus medullaris is normal in position and appearance at the L1 level. At the L1-2 level, axial and sagittal images demonstrate degenerative narrowing of the disc and some decreased signal intensity on T2 weighted scans consistent with degenerative disc disease. No disc protrusion is seen. No spinal stenosis or foraminal narrowing is seen at L1-2. At L2-3, there is degenerative narrowing and desiccation of the disc also noted. Minimal diffuse disc bulging is present. No spinal stenosis or foraminal narrowing is seen. Anterior discogenic spurring is present. At L3-4, there is degenerative narrowing and desiccation of the disc. There is mild diffuse disc bulging. There is right foraminal and lateral disc bulging moderate in degree with associated discogenic spurring. There is mild right neural foraminal narrowing as result. Canal size is borderline. The midline AP dimension of the thecal sac at L3-4 is 9.8 mm. There is mild facet hypertrophy. At L4-L5, there is an annulus tear and a small central focal disc protrusion is seen indenting the ventral margin of the thecal sac. There is right foraminal disc bulging at L4-5. There is mild right-sided neural foraminal narrowing. There is some left neural foraminal narrowing as well due to facet hypertrophy. Borderline canal size is noted at L4-5. There is facet hypertrophy bilaterally at L4-5. At L5-S1, there is mild diffuse disc bulging which effaces the ventral epidural fat but does not compress the thecal sac. There is mild bilateral neural foraminal narrowing due to disc bulging, associated discogenic spurring, and facet hypertrophy. No focal disc protrusion is present. IMPRESSION: Multilevel degenerative disc and osteoarthritic facet disease. Right foraminal disc bulge at L4-5, right lateral and foraminal disc bulge with associated spurring at L3-4. Borderline canal size at L3-4 and L4-5. Central disc protrusion at L4-5. <Electronically signed by Chavo Mera > 12/01/20 [id number]
== END ==
LOC: M RAD 08:29
PROVIDERS: ATTEND Pain Medicine Interventional Pain Medicine
DX: M51.36 Other intervertebral disc degeneration, lumbar region (principal); M51.26 Other intervertebral disc displacement, lumbar region

== ENCOUNTER 2020-12-03 21:12 | Emergency (ER) | payer MEDICARE, MEDICAID ==
[~2020-12-03] VITALS: Ht 188 cm; Wt 113.6 kg
[~2020-12-03 21:12] MED LIST changes: -MAGN1CAP PO; -VITAD400CA FT
[2020-12-03] MEDS ORDERED: MAGN1CAP PO (21:53)
[2020-12-03] MEDS ORDERED: VITAD400CA FT (21:54)
[2020-12-03 22:36] LABS: BASO % 0.5 % (0.0-1.0); EOS # 0.1 10^3/uL (0.0-0.5); EOS % 1.4 % (0.0-3.0); HEMATOCRIT 37.1 % (42.0-52.0); HEMOGLOBIN 13.3 g/dl (13.5-17.5); LYMPH # 1.5 10^3/uL (1.5-5.0); LYMPH % 25.5 % (24.0-44.0); MEAN CORPUSCULAR HEMOGLOBIN 33.1 pg (27.0-33.0); MEAN CORPUSCULAR HGB CONC 35.8 g/dl (32.0-36.5); MEAN CORPUSCULAR VOLUME 92.3 fl (80.0-96.0); MONO # 0.7 10^3/uL (0.0-0.8); MONO % 12.1 % (2.0-8.0); NEUTROPHILS # 3.4 10^3/uL (1.5-8.5); NEUTROPHILS % 59.6 % (36.0-66.0); PLATELET COUNT, AUTOMATED 257 10^3/uL (150-450); RED BLOOD COUNT 4.02 10^6/uL (4.30-6.10); WHITE BLOOD COUNT 5.7 10^3/uL (4.0-10.0)
[2020-12-03 22:59] LABS: ALBUMIN 3.6 GM/DL (3.2-5.2); ALT/SGPT 19 U/L (12-78); BILIRUBIN,DIRECT 0.2 MG/DL (0.0-0.2); BILIRUBIN,TOTAL 0.4 MG/DL (0.2-1.0); BLOOD UREA NITROGEN 6 MG/DL (7-18); CALCIUM LEVEL 8.4 MG/DL (8.8-10.2); CARBON DIOXIDE LEVEL 22 MEQ/L (21-32); CHLORIDE LEVEL 95 MEQ/L (98-107); CREATININE FOR GFR 0.58 MG/DL (0.70-1.30); GLOMERULAR FILTRATION RATE > 60.0 (>49); GLUCOSE, FASTING 82 MG/DL (70-100); LIPASE 111 U/L (73-393); SODIUM LEVEL 128 MEQ/L (136-145); TOTAL PROTEIN 6.7 GM/DL (6.4-8.2)
[2020-12-03 23:21] LABS: ETHYL ALCOHOL (ETHANOL) 0.077 % (0.000-0.010)
--- NOTE | 2020-12-04 | REPVR ---
PROCEDURE INFORMATION: Exam: CT Head Without Contrast Exam date and time: 12/03/2020 11:18 PM Age: 65 years old Clinical indication: Injury or trauma; Fall; Concussion/head injury; Consciousness not specified; Additional info: Fall, hyponatremia TECHNIQUE: Imaging protocol: Computed tomography of the head without contrast. Radiation optimization: All CT scans at this facility use at least one of these dose optimization techniques: automated exposure control; mA and/or kV adjustment per patient size (includes targeted exams where dose is matched to clinical indication); or iterative reconstruction. COMPARISON: No relevant prior studies available. FINDINGS: Brain: There is a single image demonstrating some vague loss of tao-white differentiation within the left anterior insula and subinsular region, if there are any focal neurologic deficits are concern for infarction, recommend additional imaging such as MRI or CTA. No midline shift, mass, fluid collection, or evidence of acute hemorrhage. Cerebral ventricles: No ventriculomegaly. Bones/joints: Unremarkable. No acute fracture. Paranasal sinuses: Visualized sinuses are unremarkable. No fluid levels. Mastoid air cells: Visualized mastoid air cells are well aerated. Soft tissues: Unremarkable. IMPRESSION: Single image demonstrating some vague loss of tao-white differentiation within the left anterior insula and subinsular region, if there are any focal neurologic deficits or concern for infarction, recommend additional imaging such as MRI or CTA. Electronically signed by: Rey Graham On 12/03/2020 23:59:26 PM
[2020-12-04 02:28] VITALS: BP 140/84
--- NOTE | 2020-12-04 05:54 | ECGEPIP ---
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
--- NOTE | 2020-12-04 17:34 | ED PDOC ---
Post-Departure Follow-Up radiology report faxed to becca Ruelas Sarah MD Dec 04, 2020 17:34
== END 2020-12-04 02:30 | disposition home or self-care (01) ==
LOC: M ED 21:12
DX: E87.1 Hypo-osmolality and hyponatremia (principal); F10.20 Alcohol dependence, uncomplicated; R93.0 Abnormal findings on diagnostic imaging of skull and head, not elsewhere classified; R94.31 Abnormal electrocardiogram [ECG] [EKG]; I10 Essential (primary) hypertension; E78.5 Hyperlipidemia, unspecified; J44.9 Chronic obstructive pulmonary disease, unspecified; N40.1 Benign prostatic hyperplasia with lower urinary tract symptoms; F31.9 Bipolar disorder, unspecified; F17.200 Nicotine dependence, unspecified, uncomplicated; Z88.8 Allergy status to other drugs, medicaments and biological substances; Z79.899 Other long term (current) drug therapy; D64.9 Anemia, unspecified; Z13.228 Encounter for screening for other metabolic disorders

== ENCOUNTER → 2020-12-03 | Outpatient (REF) | payer MEDICARE, MEDICAID ==
[2020-12-03 13:10] LABS: BASO % 0.6 % (0.0-1.0); EOS # 0.1 10^3/uL (0.0-0.5); EOS % 1.6 % (0.0-3.0); HEMATOCRIT 40.9 % (42.0-52.0); HEMOGLOBIN 14.3 g/dl (13.5-17.5); LYMPH # 1.3 10^3/uL (1.5-5.0); LYMPH % 20.6 % (24.0-44.0); MEAN CORPUSCULAR HEMOGLOBIN 32.9 pg (27.0-33.0); MONO # 0.9 10^3/uL (0.0-0.8); MONO % 13.7 % (2.0-8.0); NEUTROPHILS % 62.1 % (36.0-66.0); PLATELET COUNT, AUTOMATED 288 10^3/uL (150-450); RED BLOOD COUNT 4.35 10^6/uL (4.30-6.10); WHITE BLOOD COUNT 6.4 10^3/uL (4.0-10.0)
[2020-12-03 13:22] LABS: ALBUMIN 4.1 GM/DL (3.2-5.2); ALT/SGPT 22 U/L (12-78); BILIRUBIN,TOTAL 0.4 MG/DL (0.2-1.0); BLOOD UREA NITROGEN 7 MG/DL (7-18); CARBON DIOXIDE LEVEL 22 MEQ/L (21-32); CHLORIDE LEVEL 92 MEQ/L (98-107); CHOLESTEROL LEVEL 166 MG/DL (<200); CHOLESTEROL RISK RATIO 2.243 (<5); CREATININE FOR GFR 0.67 MG/DL (0.70-1.30); GLOMERULAR FILTRATION RATE > 60.0 (>49); GLUCOSE, FASTING 85 MG/DL (70-100); HDL CHOLESTEROL 74 MG/DL (>40); LDL CHOLESTEROL 57 MG/DL (<100); NON-HDL-C 92 MG/DL; POTASSIUM SERUM 3.9 MEQ/L (3.5-5.1); SODIUM LEVEL 125 MEQ/L (136-145); THYROID STIMULATING HORMONE 0.757 uIU/ML (0.358-3.740); TOTAL PROTEIN 7.4 GM/DL (6.4-8.2); TRIGLYCERIDES LEVEL 177 MG/DL (<150); VALPROIC ACID (DEPAKOTE) 113.5 UG/ML (50.0-100.0)
[2020-12-03 13:43] LABS: HEMOGLOBIN A1c 4.9 %
== END ==
LOC: M LAB REF 11:39
PROVIDERS: ATTEND Physician Assistant
DX: F31.9 Bipolar disorder, unspecified (principal); E78.5 Hyperlipidemia, unspecified; D64.9 Anemia, unspecified; Z13.228 Encounter for screening for other metabolic disorders

== ENCOUNTER → 2020-12-06 | Outpatient (REF) | payer MEDICARE, MEDICAID ==
[~2020-12-06] MED LIST changes: +MAGN1CAP PO; +VITAD400CA FT
[2020-12-06 17:23] LABS: BLOOD UREA NITROGEN 8 MG/DL (7-18); CALCIUM LEVEL 8.7 MG/DL (8.8-10.2); CARBON DIOXIDE LEVEL 24 MEQ/L (21-32); CHLORIDE LEVEL 98 MEQ/L (98-107); CREATININE FOR GFR 0.49 MG/DL (0.70-1.30); GLOMERULAR FILTRATION RATE > 60.0 (>49); GLUCOSE, FASTING 81 MG/DL (70-100); POTASSIUM SERUM 4.3 MEQ/L (3.5-5.1); SODIUM LEVEL 131 MEQ/L (136-145)
== END ==
LOC: M LAB REF 16:23
PROVIDERS: ATTEND Physician Assistant
DX: E87.1 Hypo-osmolality and hyponatremia (principal)

== ENCOUNTER 2021-02-03 16:02 | Emergency (ER) | payer MEDICARE, MEDICAID ==
[~2021-02-03] VITALS: Ht 188 cm; Wt 108.2 kg
[2021-02-03] MEDS ORDERED: LIDOCAINE 5% (LIDODERM) PATCH TD ONE (17:50)
[2021-02-03] MEDS ORDERED: diazePAM 10 MG TAB PO ONE (17:50)
[2021-02-03] MEDS ORDERED: KETOROLAC 60MG 2ML VIAL IM ONE (17:50)
[2021-02-03] MEDS ORDERED: VALI5TAB PO (19:31)
[2021-02-03] MEDS ORDERED: ASPE4PAD TOP (19:32)
[2021-02-03 19:39] VITALS: BP 138/96
[2021-02-04] MEDS ORDERED: **NOTE PATIENT COMMENT** MISC XX ONE (06:00)
== END 2021-02-03 19:47 | disposition home or self-care (01) ==
LOC: M ED 16:02 → EDBD 16:02 → M ED 19:47
DX: G89.29 Other chronic pain (principal); M54.5 Low back pain; I10 Essential (primary) hypertension; E78.5 Hyperlipidemia, unspecified; K21.9 Gastro-esophageal reflux disease without esophagitis; J44.9 Chronic obstructive pulmonary disease, unspecified; Z88.1 Allergy status to other antibiotic agents; Z88.6 Allergy status to analgesic agent; Z79.899 Other long term (current) drug therapy; F17.200 Nicotine dependence, unspecified, uncomplicated
CPT/HCPCS: 96372; 99284; J1885

== ENCOUNTER 2021-03-01 17:56 | Emergency (ER) | payer MEDICARE, MEDICAID ==
[~2021-03-01] VITALS: Ht 188 cm; Wt 109.1 kg
[~2021-03-01 17:56] MED LIST changes: +ASPE4PAD TOP; +VALI5TAB PO
[2021-03-01 18:49] LABS: BASO % 0.5 % (0.0-1.0); EOS % 0.4 % (0.0-3.0); HEMATOCRIT 40.3 % (42.0-52.0); HEMOGLOBIN 14.3 g/dl (13.5-17.5); LYMPH # 0.9 10^3/uL (1.5-5.0); LYMPH % 16.3 % (24.0-44.0); MEAN CORPUSCULAR HGB CONC 35.5 g/dl (32.0-36.5); MONO # 0.7 10^3/uL (0.0-0.8); MONO % 13.1 % (2.0-8.0); NEUTROPHILS # 3.9 10^3/uL (1.5-8.5); NEUTROPHILS % 67.9 % (36.0-66.0); PLATELET COUNT, AUTOMATED 256 10^3/uL (150-450); WHITE BLOOD COUNT 5.7 10^3/uL (4.0-10.0)
[2021-03-01] MEDS ORDERED: BOOSTRIX/ADACEL VACCINE (DIPHTH/PERTUSS/ACELL/TETANUS) 0.5ML SYR IM ONE (19:20)
[2021-03-01 19:31] LABS: BLOOD UREA NITROGEN 6 MG/DL (7-18); CALCIUM LEVEL 8.1 MG/DL (8.8-10.2); CARBON DIOXIDE LEVEL 24 MEQ/L (21-32); CHLORIDE LEVEL 97 MEQ/L (98-107); ETHYL ALCOHOL (ETHANOL) 0.366 % (0.000-0.010); GLOMERULAR FILTRATION RATE > 60.0 (>49); GLUCOSE, FASTING 84 MG/DL (70-100); POTASSIUM SERUM 3.7 MEQ/L (3.5-5.1); SODIUM LEVEL 131 MEQ/L (136-145)
--- NOTE | 2021-03-01 19:49 | REP ---
INDICATION: trauma COMPARISON: None. TECHNIQUE: Two views left forearm. FINDINGS: There is no evidence of acute fracture, dislocation, or intrinsic bone disease. IMPRESSION: No fracture or dislocation. <Electronically signed by Ronan Burgos > 03/01/211945
--- NOTE | 2021-03-01 20:14 | REPVR ---
PROCEDURE INFORMATION: Exam: CT Head Without Contrast Exam date and time: 03/01/2021 7:34 PM Age: 65 years old Clinical indication: Injury or trauma; Fall; Blunt trauma (contusions or hematomas); Consciousness not specified TECHNIQUE: Imaging protocol: Computed tomography of the head without contrast. Radiation optimization: All CT scans at this facility use at least one of these dose optimization techniques: automated exposure control; mA and/or kV adjustment per patient size (includes targeted exams where dose is matched to clinical indication); or iterative reconstruction. COMPARISON: CT Head without contrast 12/03/2020 11:23 PM FINDINGS: Brain: Mild diffuse parenchymal volume loss. No significant white matter disease. Cerebral ventricles: No ventriculomegaly. Paranasal sinuses: Visualized sinuses are unremarkable. No fluid levels. Mastoid air cells: Visualized mastoid air cells are well aerated. Bones/joints: Unremarkable. No acute fracture. Soft tissues: Unremarkable. IMPRESSION: 1. Mild diffuse parenchymal volume loss. No significant white matter disease. 2. No acute intracranial findings. Electronically signed by: Gatito Flores On 03/01/2021 20:13:35 PM
--- NOTE | 2021-03-01 20:19 | REPVR ---
PROCEDURE INFORMATION: Exam: CT Cervical Spine Without Contrast Exam date and time: 03/01/2021 7:34 PM Age: 65 years old Clinical indication: Injury or trauma; Fall; Blunt trauma TECHNIQUE: Imaging protocol: Computed tomography images of the cervical spine without contrast. Radiation optimization: All CT scans at this facility use at least one of these dose optimization techniques: automated exposure control; mA and/or kV adjustment per patient size (includes targeted exams where dose is matched to clinical indication); or iterative reconstruction. COMPARISON: No relevant prior studies available. FINDINGS: Bones/joints: No acute fracture. Normal alignment. Discs/Spinal canal/Neural foramina: There are degenerative changes demonstrated in the atlantoaxial joint at C1-C2 with osteophytes and joint space narrowing. The transverse ligament is unremarkable. Disc space narrowing at C5-C6 and C6-C7. Mild bilateral foraminal narrowing at C2, severe foraminal narrowing on the right and moderate foraminal narrowing on the left at C3, moderate foraminal narrowing on the left at C4, severe foraminal narrowing on the left and mild foraminal narrowing on the right at C5, finding secondary to osteophytic encroachment. Auditory system: Retained cerumen in the left external auditory canal. Lungs: Lung apices are normal. Soft tissues: See "Discs/Spinal canal/Neural foramina" finding. IMPRESSION: 1. Degenerative spondylosis. 2. No acute findings. Electronically signed by: Gatito Flores On 03/01/2021 20:18:47 PM
[2021-03-01 22:46] VITALS: BP 174/113
[2021-03-01] MEDS ORDERED: OXAZEPAM 15 MG CAP PO ONE (22:50)
[2021-03-01] MEDS ORDERED: lisinopriL 40 MG TAB PO ONE (22:50)
[2021-03-01 23:25] VITALS: BP 174/113
== END 2021-03-02 00:05 | disposition left against medical advice (07) ==
LOC: EDBD 17:56 → M ED 17:56
DX: S51.812A Laceration without foreign body of left forearm, initial encounter (principal); W19.XXXA Unspecified fall, initial encounter; Y92.9 Unspecified place or not applicable; Y93.9 Activity, unspecified; Y99.9 Unspecified external cause status; Z53.9 Procedure and treatment not carried out, unspecified reason; M47.812 Spondylosis without myelopathy or radiculopathy, cervical region; F10.120 Alcohol abuse with intoxication, uncomplicated; J44.9 Chronic obstructive pulmonary disease, unspecified; E78.5 Hyperlipidemia, unspecified; N40.0 Benign prostatic hyperplasia without lower urinary tract symptoms; Z88.8 Allergy status to other drugs, medicaments and biological substances; Z79.899 Other long term (current) drug therapy

== ENCOUNTER 2021-03-26 14:29 | Emergency (ER) | payer MEDICARE, MEDICAID ==
[~2021-03-26] VITALS: Ht 188 cm; Wt 104.5 kg
[2021-03-26] MEDS ORDERED: LAMO25TA4 (14:43)
[2021-03-26] MEDS ORDERED: TIZA4TAB4 (14:43)
[2021-03-26] MEDS ORDERED: LORazepam 2 MG/ML VIAL IV STA (15:01)
[2021-03-26] MEDS ORDERED: MULTIVITAMIN -ADULT INJECTION 10 ML, THIAMINE INJection 100 MG, FOLIC ACID 1 MG in NS 1... IV ONE (15:05)
[2021-03-26] MEDS ORDERED: THIAMINE 100 MG TAB PO ONE (15:30)
[2021-03-26] MEDS ORDERED: FOLIC ACID 1 MG TAB PO ONE (15:30)
[2021-03-26 15:37] LABS: HEMATOCRIT 42.2 % (42.0-52.0); HEMOGLOBIN 14.7 g/dl (13.5-17.5); MEAN CORPUSCULAR HEMOGLOBIN 34.2 pg (27.0-33.0); MEAN CORPUSCULAR HGB CONC 34.8 g/dl (32.0-36.5); MEAN CORPUSCULAR VOLUME 98.1 fl (80.0-96.0); PLATELET COUNT, AUTOMATED 275 10^3/uL (150-450); WHITE BLOOD COUNT 5.4 10^3/uL (4.0-10.0)
[2021-03-26 16:06] LABS: ALT/SGPT 61 U/L (12-78); BLOOD UREA NITROGEN 4 MG/DL (7-18); CALCIUM LEVEL 8.2 MG/DL (8.8-10.2); CARBON DIOXIDE LEVEL 22 MEQ/L (21-32); CHLORIDE LEVEL 102 MEQ/L (98-107); GLOMERULAR FILTRATION RATE > 60.0 (>49); GLUCOSE, FASTING 72 MG/DL (70-100); POTASSIUM SERUM 3.7 MEQ/L (3.5-5.1); SODIUM LEVEL 137 MEQ/L (136-145)
[2021-03-26 16:07] LABS: ACETAMINOPHEN LEVEL < 2.0 UG/ML (10.0-30.0); ALBUMIN 3.9 GM/DL (3.2-5.2); BILIRUBIN,DIRECT 0.3 MG/DL (0.0-0.2); BILIRUBIN,TOTAL 0.6 MG/DL (0.2-1.0); ETHYL ALCOHOL (ETHANOL) 0.244 % (0.000-0.010); SALICYLATE LEVEL 6.9 MG/DL (5.0-30.0); TOTAL PROTEIN 6.8 GM/DL (6.4-8.2)
[2021-03-26 21:04] LABS: AMPHETAMINES LEVEL URINE NEGATIVE (NEGATIVE); BARBITURATES URINE NEGATIVE (NEGATIVE); BENZODIAZEPINES URINE POSITIVE (NEGATIVE); CANNABINOIDS URINE POSITIVE (NEGATIVE); COCAINE METABOLITE URINE NEGATIVE (NEGATIVE); METHADONE URINE NEGATIVE (NEGATIVE); OPIATES URINE NEGATIVE (NEGATIVE); PHENCYCLIDINE URINE NEGATIVE (NEGATIVE)
[2021-03-26] MEDS ORDERED: OXAZ30CA2 PO (21:06)
[2021-03-26 21:15] VITALS: BP 151/91
== END 2021-03-26 21:40 | disposition home or self-care (01) ==
LOC: EDBD 14:29 → M ED 14:29
DX: F10.239 Alcohol dependence with withdrawal, unspecified (principal); I10 Essential (primary) hypertension; J44.9 Chronic obstructive pulmonary disease, unspecified; E78.5 Hyperlipidemia, unspecified; F31.9 Bipolar disorder, unspecified; N40.0 Benign prostatic hyperplasia without lower urinary tract symptoms; Z88.5 Allergy status to narcotic agent; Z88.8 Allergy status to other drugs, medicaments and biological substances; Z79.899 Other long term (current) drug therapy
CPT/HCPCS: 80048; 80076; 80143; 80307; 82077; 84443; 85027; 96365; 96366; 96375; 99285; J2060; J3411

== ENCOUNTER → 2021-04-22 | Outpatient (CLI) | payer MEDICARE, MEDICAID ==
[~2021-04-22] MED LIST changes: +LAMO25TA4; +OXAZ30CA2 PO; +TIZA4TAB4
--- NOTE | 2021-04-26 00:20 | ECWPNPC ---
PATIENT NAME: JULIEN BRAR : 1955 GENDER: MALE VISIT DATE: 04/22/2021 DISCHARGE DATE: 04/22/21918 VISIT LOCKED DATE TIME: PHYSICIAN: DANYELLE BRAVO RESOURCE: DANYELLE BRAVO REASON FOR APPOINTMENT 1. LUMBOSACRAL RADICULOPATHY HISTORY OF PRESENT ILLNESS DEPRESSION SCREENING: PHQ-9 LITTLE INTEREST OR PLEASURE IN DOING THINGSMORE THAN HALF THE DAYS FEELING DOWN, DEPRESSED, OR HOPELESSSEVERAL DAYS TROUBLE FALLING OR STAYING ASLEEP, OR SLEEPING TOO MUCHSEVERAL DAYS FEELING TIRED OR HAVING LITTLE ENERGYSEVERAL DAYS POOR APPETITE OR OVEREATING SEVERAL DAYS FEELING BAD ABOUT YOURSELF-OR THAT YOU ARE A FAILURE OR HAVE LET YOURSELF OR YOUR FAMILY DOWN NOT AT ALL TROUBLE CONCENTRATING ON THINGS, SUCH READING THE NEWSPAPER OR WATCHING TELEVISION NOT AT ALL MOVING OR SPEAKING SO SLOWLY THAT OTHER PEOPLE COULD HAVE NOTICED. OR THE OPPOSITE- BEING SO FIDGETY OR RESTLESS THAT YOU HAVE BEEN MOVING AROUND A LOT MORE THAN USUALSEVERAL DAYS THOUGHTS THAT YOU WOULD BE BETTER OFF , OR OF HURTING YOURSELF IN SOME WAY?NOT AT ALL TOTAL SCORE:7 INTERPRETATIONMILD DEPRESSION PHQ-2 (2015 EDITION) LITTLE INTEREST OR PLEASURE IN DOING THINGS?MORE THAN HALF THE DAYS FEELING DOWN, DEPRESSED, OR HOPELESS?SEVERAL DAYS TOTAL SCORE3 GENERAL: PLEASANT 65-YEAR-OLD GENTLEMAN BEING REFERRED BY [facility] TO EVALUATE CHRONIC LOW BACK PAIN. HISTORY OF CHRONIC LOW BACK PAIN. RECENTLY DECIDED TO SEEK MEDICAL ATTENTION FOR CHRONIC LOW BACK PAIN. HAS HAD 3 LUMBAR EPIDURAL STEROID INJECTIONS, LAST 1 BEING DONE 1 MONTH AGO AT [facility] IN [place]. HAS HISTORY OF ALCOHOLISM AND USES MARIJUANA ON A REGULAR BASIS. DENIES BOWEL OR BLADDER INCONTINENCE. DENIES RECENT FEVER OR ILLNESS. REPORTS ATTENDING DETOXIFICATION AT [facility] IN JANUARY 2021. REVIEWED MRI OF THE LS SPINE AND DISCUSSED TREATMENT OPTIONS. DENIES BOWEL OR BLADDER INCONTINENCE. DENIES SADDLE PARESTHESIAS. - - -. FALL RISK SCREENING: SCREENING 7 FALLS THIS YEAR, HAD SOME BRUISE AND DID GO TO THE ER FOR A COUPLE OF THEM, NO MAJOR INJURIES. PAIN SCREENING: PATIENT HAS A COMPLAINT OF ACUTE OR CHRONIC PAIN :YES LOCATION OF PAIN:LOW BACK INTENSITY OF PAIN (SCALE OF 1 TO 10):4 WHAT DOES YOUR PAIN FEEL LIKE:CONTINOUS, THROBBING DURATION:CONTINOUS, CONSTANT, ALL DAY PAIN IS INCREASED BY:ACTIVITIES, PROLONGED STANDING PAIN IS DECREASED BY:OTHERS LAYING DOWN ON HIS SIDE NURSING NOTE: - - -. PAIN CENTER INTAKE QUESTIONS: DO YOU HAVE A HISTORY OF MRSA? :NO DO YOU TAKE A BLOOD THINNERS? :NO DO YOU HAVE ANY BLEEDING DISORDERS? :NO ANY NEW NUMBNESS OR WEAKNESS IN YOUR LEGS OR ARMS? :NO ANY PACEMAKER,DEFIBRILLATOR, OR DORSAL COLUMN STIMULATOR? :NO DO YOU HAVE ANY RASHES OR OPEN SORES? :NO ARE YOU ALLERGIC TO IV DYE? :NO ARE YOU DIABETIC? :NO ANY NEW PROBLEMS WITH YOUR MEDICATIONS? :NO HAVE YOU RECEIVED A VACCINE IN THE PAST 30 DAYS? :NO DO YOU PLAN TO RECEIVE A VACCINE IN THE NEXT 21 DAYS? :NO DO YOU NEED ANY PRESCRIPTION? :NO DO YOU TAKE ANY IMMUNOSUPPRESSIVE MEDICATIONS? :NO IS THERE A CHANCE YOU COULD BE ? :NO ARE YOU BREAST FEEDING? :NO CURRENT MEDICATIONS TAKING SILDENAFIL CITRATE 20 MG TABLET 1 TABLET ORALLY ONCE A DAY TAKING DIVALPROEX SODIUM 500 MG TABLET DELAYED RELEASE 1 TABLET ORALLY THREE A DAY TAKING ACAMPROSATE CALCIUM 333 MG TABLET DELAYED RELEASE 2 TABLETS ORALLY THREE TIMES A DAY TAKING AMLODIPINE BESYLATE 10 MG TABLET 1 TABLET ORALLY ONCE A DAY TAKING TRAZODONE 100 100MG TABLET 1 TABLET ORAL ONCE PER DAY, NOTES: 50MG AT HS TAKING PRAVASTATIN 80 80MG TABLET 1 TABLET ORAL ONCE PER DAY TAKING LISINOPRIL 40 40 MG TABLET 1 TABLET ORAL ONCE PER DAY TAKING MAGNESIUM 250 MG TABLET ORALLY DAILY, NOTES: 400MG TAKING ESOMEPRAZOLE MAGNESIUM 40 MG CAPSULE DELAYED RELEASE 1 CAPSULE ORALLY ONCE A DAY TAKING MULTIVITAMIN ADULTS 50+ - TABLET DIRECTED ORALLY TAKING COMBIVENT RESPIMAT 20-100 MCG/ACT AEROSOL 1 PUFF INHALATION FOUR TIMES DAILY TAKING TAMSULOSIN HCL 0.4 MG CAPSULE 1 CAPSULE ORALLY ONCE A DAY TAKING SPIRIVA HANDIHALER 18 MCG CAPSULE 1 CAPSULE INHALATION ONCE A DAY, NOTES: NOT SURE TAKING VITAMIN D TAKING ANORO ELLIPTA 62.5-25 MCG/INH AEROSOL POWDER BREATH ACTIVATED 1 PUFF INHALATION ONCE A DAY NOT-TAKING PROAIR HFA 108 (90 BASE) MCG/ACT AEROSOL SOLUTION 2 PUFFS NEEDED INHALATION EVERY 4 HRS NOT-TAKING DEPAKOTE 500 MG TABLET DELAYED RELEASE 1 TABLET ORALLY TID NOT-TAKING SODIUM CHLORIDE 1 GM TABLET DIRECTED ORALLY BID NOT-TAKING FAMOTIDINE 40 MG TABLET 1 TABLET AT BEDTIME ORALLY ONCE A DAY NOT-TAKING CIPRO 500 MG TABLET 1 TABLET ORALLY EVERY 12 HRS NOT-TAKING SYMBICORT 160-4.5 MCG/ACT AEROSOL 2 PUFFS INHALATION TWICE A DAY NOT-TAKING LEVAQUIN 500 MG TABLET 1 TABLET ORALLY ONCE A DAY, NOTES: ONE DAY LEFT NOT-TAKING KEFLEX 500 MG CAPSULE 1 CAPSULE ORALLY EVERY 12 HRS, NOTES: FINISHED THIS AM NOT-TAKING HYDROCHLOROTHIAZIDE 25 25 MG TABLET 1 TABLET ORAL ONCE PER DAY NOT-TAKING FENOFIBRATE 145 TABLET 1 TABLET ORALLY ONCE A DAY NOT-TAKING CIALIS 20 MG TABLET 1 TABLET ORALLY NEEDED 1 HOUR PRIOR TO SEXUAL ACTIVITY MEDICATION LIST REVIEWED AND RECONCILED WITH THE PATIENT PAST MEDICAL HISTORY BIPOLAR DISORDER HTN HIGH COLESTEROL COPD GERD DDD HX OF URINARY RETENTION MODERNA COVID-19 1ST: 11/17/2020 2ND: 12/15/2020 PNEUMOVAX 10/01/2020 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 CHRONIC BACK PAIN ALCOHOLISM HYPERLIPIDEMIA HYPERTENSIVE DISORDER DEPRESSION 7 FALLS THIS YEAR, HAD SOME BRUISE AND DID GO TO THE ER FOR A COUPLE OF THEM, NO MAJOR INJURIES ALLERGIES TRAMADOL HCL: NAUSEA/VOMITING - SIDE EFFECTS CHANTIX: NAUSEA/VOMITING - SIDE EFFECTS SEASONAL ALLERGIES: CAUSES WATERY & ITCHY EYES - ALLERGY SURGICAL HISTORY COLONOSCOPY 10 YEARS AGO FAMILY HISTORY FATHER: 65 YRS, LUNG CANCER, DIAGNOSED WITH OTHER MALIGNANT NEOPLASM OF UNSPECIFIED SITE MOTHER: 60 YRS, DIAGNOSED WITH HYPERTENSION, UNSPECIFIED HEART DISEASE SIBLINGS: ALIVE, 1 BROTHER WITH PROSTATE ISSUES DAUGHTER(S): ALIVE 4 BROTHER(S) , 2 SISTER(S) . 1 DAUGHTER(S) - HEALTHY. NO UROLOGICAL DISORDERS IN FAMILY. SOCIAL HISTORY GENERAL: TOBACCO USE ARE YOU A:CURRENT SMOKER ARE YOU INTERESTED IN QUITTING?NOT READY TO QUIT COUNSELED THE PATIENT ON SMOKING EFFECTS, EDUCATION [id number]/30/2021 HOW MANY CIGARETTES A DAY DO YOU SMOKE?6-10 HOW SOON AFTER YOU WAKE UP DO YOU SMOKE YOUR FIRST CIGARETTE?WITHIN 5 MIN HOW OFTEN DO YOU SMOKE CIGARETTES?EVERY DAY PATIENT COUNSELED ON THE DANGERS OF TOBACCO USE AND URGED TO QUIT:04/22/2021 LATEX QUESTIONNAIRE LATEX ALLERGY : HAVE YOU EVER DEVELOPED ANY TYPE OF REACTION AFTER HANDLING LATEX PRODUCTS SUCH RUBBER GLOVES, CONDOMS, DIAPHRAGMS, BALLOONS, SOCKS, OR UNDERWEAR?NO LATEX ALLERGY : HAVE YOU EVER DEVELOPED ANY TYPE OF REACTION DURING OR AFTER DENTAL APPOINTMENT, VAGINAL/RECTAL EXAMINATION, SURGICAL PROCEDURE, OR ANY OTHER EXPOSURE?NO LATEX RISK : HAVE YOU EVER HAD ANY DIFFICULTY BREATHING OR HIVES AFTER EATING OR HANDLING ANY FRUITS, OR VEGETABLES; SUCH KIWI, BANANAS, STONE FRUITS, OR CHESTNUTSNO LATEX RISK : DO YOU HAVE A PREVIOUS PERSONAL HISTORY OF MORE THAN NINE SURGERIES, SPINA BIFIDA, OR REPEATED CATHERIZATIONS? NO LATEX RISK : ARE YOU FREQUENTLY EXPOSED TO LATEX PRODUCTS IN YOUR OCCUPATION?NO DATE ASKED : 04/22/2021 ALCOHOL USE: YES. ALCOHOL SCREENING POINTS: 7, INTERPRETATION: POSITIVE. RECREATIONAL DRUG USE ACCEDES OCCASIONAL MARAJUANA. CAFFEINE HOW OFTEN AND HOW MUCH? 2/DAY CUPS COFFEE CAFFEINE USE?YES SEXUAL HX HAD SEX IN THE LAST 12 MONTHS (VAGINAL, ORAL, OR ANAL)?: YES, WITH: WOMEN ONLY, USE PROTECTION?: NO, PREVENTION STRATEGIES DISCUSSED:: OTHER, HAVE YOU EVER HAD AN STD?: NO. TAOISM NO VOODOO BELIEFS THAT WOULD IMPACT HEALTH CARE. LANGUAGE SYRIAC. 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 OCCUPATION: DISABLED. DIET: REGULAR. EXERCISE: WALKS. MARITAL STATUS: . OTHERS AT HOME: SEPERATED. HOSPITALIZATION/MAJOR DIAGNOSTIC PROCEDURE CHILDHOOD ASTHMA - NOT AN ADULT REVIEW OF SYSTEMS CONSTITUTIONAL: ANY RECENT FEVER NO . CHILLS NO . WEIGHT CHANGE OF UNKNOWN REASONS NO . GASTROENTEROLOGY: NEW UNEXPLAINABLE CHANGES IN BOWEL CONTROL NO . CONSTIPATION NO . GENITOURINARY: ANY NEW CHANGE IN BLADDER CONTROL? NO . NEUROLOGY: NEW ONSET DIZZINESS OR NEUROLOGICAL CHANGES NOT MENTIONED NO . NEW NUMBNESS OR PAIN PATTERNS NOT MENTIONED AND PERTINENT TO TODAY'S VISIT NO . CARDIOLOGY: NEW CHEST PRESSURE NO . PATIENT DENIES NO . RESPIRATORY: UNEXPLAINABLE COUGH NO . NEW SHORTNESS OF BREATH NO . VITAL SIGNS WT 248 LBS, HT 74 IN, BMI 31.84 INDEX, BP 145/97 MM HG, HR 75 /MIN, RR 18 /MIN, TEMP 97.2 F, OXYGEN SAT % 99%, SAFE IN ENV? (Y/N) YEST.VERNA PATEL, PATIENT STATED THAT HE DID NOT GO MUCH SLEEP LAST NIGHT BECAUSE HE KNEW HE HAD TO COME HERE. EXAMINATION GENERAL EXAMINATION: GENERALNO ACUTE DISTRESS, WELL NOURISHED AND HYDRATED. PSYCHAPPROPRIATE MOOD AND AFFECT . FACE:UNREMARKABLE. NECK:NO LYMPHADENOPATHY, SUPPLE. LUNGS:CLEAR TO AUSCULTATION BILATERALLY, NO WHEEZES, RHONCHI, RALES. HEART:NO MURMURS, REGULAR RATE AND RHYTHM. MUSCULOSKELETAL:NORMAL RANGE OF MOTION MUSCLE STRENGTH TESTING 5/5 BILATERAL UPPER /LOWER EXTREMITIES. LUMBAR:SPECIFIC POINT TENDERNESS NOTED OVER LUMBAR FACETS WITH FACET LOADING. SPECIFIC POINT TENDERNESS NOTED OVER BILATERAL SACROILIAC JOINT SPACE.. NEUROLOGIC EXAM:INTACT, NO DEFICITS. DIAGNOSTIC TESTS REVIEWED MRI L/S SPINE-12/01/2020. ASSESSMENTS SPONDYLOSIS WITHOUT MYELOPATHY OR RADICULOPATHY, LUMBAR REGION - M47.816 (PRIMARY) TREATMENT SPONDYLOSIS WITHOUT MYELOPATHY OR RADICULOPATHY, LUMBAR REGION SALINE LOCK (ORDERED FOR 05/06/2021)[id number] MEDICATION: PAIN VALIUM TAB 5MG ORALLY (DIAZEPAM) (ORDERED FOR 05/06/2021)[id number] MED: PAIN NORCO TABLET 5MG/325MG ORALLY HYDROCODONE/ACETAMINOPHEN (ORDERED FOR 05/06/2021)[id number] NOTES: BILATERAL THERAPEUTIC LUMBAR FACET BLOCK L4-5,L5-S1 PRINTED AND REVIEWED PRE PROCEDURE INFORMATION, PATIENT VERBALIZED UNDERSTANDING ESTEFANY PATEL. PROCEDURE CODES FA211 ESTABILISHED PATIENT [facility] FACILITY CHARGE DISPOSITION & COMMUNICATION FOLLOW UP POST (REASON: BILATERAL THERAPEUTIC LUMBAR FACET BLOCK L4-5,L5-S1) ELECTRONICALLY SIGNED BY ASHWIN SCHAFFER ON 04/25/2021 AT 08:30 AM EDT DISCLAIMER : THIS IS A VISIT SUMMARY EXTRACTED FROM THE [employer] CHART. IT IS NOT A COPY OF THE [employer] PROGRESS NOTE. BRIGIDO
== END ==
LOC: M PAIN 08:30
PROVIDERS: ATTEND Nurse Practitioner Family
DX: M47.816 Spondylosis without myelopathy or radiculopathy, lumbar region (principal); G89.29 Other chronic pain; J44.9 Chronic obstructive pulmonary disease, unspecified; K21.9 Gastro-esophageal reflux disease without esophagitis; F17.210 Nicotine dependence, cigarettes, uncomplicated; Z86.59 Personal history of other mental and behavioral disorders; Z88.5 Allergy status to narcotic agent; Z88.8 Allergy status to other drugs, medicaments and biological substances; Z79.51 Long term (current) use of inhaled steroids; Z79.899 Other long term (current) drug therapy

== ENCOUNTER → 2021-04-28 | Outpatient (CLI) | payer MEDICARE, MEDICAID | LOC: M LABSMTC 09:27 | PROVIDERS: ATTEND Anesthesiology | DX: Z20.828 Contact with and (suspected) exposure to other viral communicable diseases (principal); Z11.59 Encounter for screening for other viral diseases ==

== ENCOUNTER → 2021-05-03 | Outpatient (CLI) | payer MEDICARE, MEDICAID ==
[~2021-05-03] MED LIST changes: +BUPIVACAINE HCL 0.25% 30ML VIAL As Ordered ONE; +ISOVUE-M 300 61% 15ML VIAL As Ordered ONE; +LIDOCAINE 1% SDV 30ML VIAL As Ordered ONE
--- NOTE | 2021-05-03 14:34 | REP ---
INDICATION: THERAPEUTIC LFB. COMPARISON: None. TECHNIQUE: 36.2 seconds of fluoroscopy time was provided for the exam. FINDINGS: Multiple needles are identified. IMPRESSION: As above <Electronically signed by Santos Camarena > 05/03/21 [id number]
--- NOTE | 2021-05-07 01:06 | ECWPNPC ---
PATIENT NAME: JULIEN BRAR : 1955 GENDER: MALE VISIT DATE: 05/03/2021 DISCHARGE DATE: 05/03/21 1208 VISIT LOCKED DATE TIME: PHYSICIAN: ANTHONY VASQUEZ MD RESOURCE: ANTHONY VASQUEZ MD REASON FOR APPOINTMENT 1. BILATERAL DIAGNOSTIC LUMBAR FACET BLOCK L3-L4, L4-5, L5-S1 #1 HISTORY OF PRESENT ILLNESS GENERAL: 65-YEAR-OLD MALE PATIENT WITH A HISTORY OF CHRONIC LOW BACK PAIN. THE PATIENT DESCRIBES THE PAIN CONSTANT AND STEADY WITH A PAIN SCORE RANGING FROM 5-10/10. THE PAIN INCREASES WITH ACTIVITES. HE HAS PROBLEMS STANDING. FALL RISK SCREENING: SCREENING 8 FALLS IN THE LAST YEAR- WITHOUT INJURY. PAIN SCREENING: PATIENT HAS A COMPLAINT OF ACUTE OR CHRONIC PAIN :YES LOCATION OF PAIN:LOW BACK INTENSITY OF PAIN (SCALE OF 1 TO 10):7 WHAT DOES YOUR PAIN FEEL LIKE:ACHING DULL DURATION:CONTINOUS, CONSTANT, STEADY, ALL DAY PAIN IS INCREASED BY:PROLONGED STANDING PAIN IS DECREASED BY:OTHERS LAY ON SIDE NURSING NOTE: -. PAIN CENTER INTAKE QUESTIONS: DO YOU HAVE A HISTORY OF MRSA? :NO DO YOU TAKE A BLOOD THINNERS? :NO DO YOU HAVE ANY BLEEDING DISORDERS? :NO ANY NEW NUMBNESS OR WEAKNESS IN YOUR LEGS OR ARMS? :NO OCCASIONAL ANY PACEMAKER,DEFIBRILLATOR, OR DORSAL COLUMN STIMULATOR? :NO DO YOU HAVE ANY RASHES OR OPEN SORES? :NO ARE YOU ALLERGIC TO IV DYE? :NO ARE YOU DIABETIC? :NO ANY NEW PROBLEMS WITH YOUR MEDICATIONS? :NO HAVE YOU RECEIVED A VACCINE IN THE PAST 30 DAYS? :NO DO YOU PLAN TO RECEIVE A VACCINE IN THE NEXT 21 DAYS? :NO DO YOU TAKE ANY IMMUNOSUPPRESSIVE MEDICATIONS? :NO ANY HISTORY OF SEIZURES? :NO ANY HISTORY OF CARDIAC ISSUES OR EVENTS? :NO DO YOU HAVE ANY KIDNEY OR LIVER DISEASE? :NO DO YOU HAVE SLEEP APNEA? :NO ANY RECENT HEAD INJURY? :NO DO YOU HAVE ANY NEW INFECTIONS? :NO IS THERE A CHANCE YOU COULD BE ? :NO ARE YOU BREAST FEEDING? :NO WHEN DID YOU LAST EAT? : - WHEN DID YOU LAST DRINK? : - WHAT DID YOU LAST DRINK? : - NAME OF PERSON DRIVING YOU HOME? : TRANSIT DO YOU HAVE ANY OTHER QUESTIONS OR CONCERNS? : - CURRENT MEDICATIONS TAKING TIZANIDINE HCL 4 MG TABLET 1 TABLET NEEDED ORALLY THREE TIMES A DAY TAKING LAMOTRIGINE 25 MG TABLET 1 TABLET ORALLY TAKING SILDENAFIL CITRATE 20 MG TABLET 1 TABLET ORALLY ONCE A DAY TAKING DIVALPROEX SODIUM 500 MG TABLET DELAYED RELEASE 1 TABLET ORALLY THREE A DAY TAKING AMLODIPINE BESYLATE 10 MG TABLET 1 TABLET ORALLY ONCE A DAY TAKING TRAZODONE 100 100MG TABLET 1 TABLET ORAL ONCE PER DAY, NOTES: 50MG AT HS TAKING PRAVASTATIN 80 80MG TABLET 1 TABLET ORAL ONCE PER DAY TAKING LISINOPRIL 40 40 MG TABLET 1 TABLET ORAL ONCE PER DAY TAKING MAGNESIUM 250 MG TABLET ORALLY DAILY, NOTES: 400MG TAKING ESOMEPRAZOLE MAGNESIUM 40 MG CAPSULE DELAYED RELEASE 1 CAPSULE ORALLY ONCE A DAY TAKING MULTIVITAMIN ADULTS 50+ - TABLET DIRECTED ORALLY TAKING COMBIVENT RESPIMAT 20-100 MCG/ACT AEROSOL 1 PUFF INHALATION FOUR TIMES DAILY TAKING VITAMIN D TAKING ANORO ELLIPTA 62.5-25 MCG/INH AEROSOL POWDER BREATH ACTIVATED 1 PUFF INHALATION ONCE A DAY TAKING PROAIR HFA 108 (90 BASE) MCG/ACT AEROSOL SOLUTION 2 PUFFS NEEDED INHALATION EVERY 4 HRS TAKING FENOFIBRATE 145 TABLET 1 TABLET ORALLY ONCE A DAY NOT-TAKING ACAMPROSATE CALCIUM 333 MG TABLET DELAYED RELEASE 2 TABLETS ORALLY THREE TIMES A DAY NOT-TAKING TAMSULOSIN HCL 0.4 MG CAPSULE 1 CAPSULE ORALLY ONCE A DAY NOT-TAKING SPIRIVA HANDIHALER 18 MCG CAPSULE 1 CAPSULE INHALATION ONCE A DAY, NOTES: NOT SURE NOT-TAKING DEPAKOTE 500 MG TABLET DELAYED RELEASE 1 TABLET ORALLY TID NOT-TAKING SODIUM CHLORIDE 1 GM TABLET DIRECTED ORALLY BID NOT-TAKING FAMOTIDINE 40 MG TABLET 1 TABLET AT BEDTIME ORALLY ONCE A DAY NOT-TAKING CIPRO 500 MG TABLET 1 TABLET ORALLY EVERY 12 HRS NOT-TAKING SYMBICORT 160-4.5 MCG/ACT AEROSOL 2 PUFFS INHALATION TWICE A DAY NOT-TAKING LEVAQUIN 500 MG TABLET 1 TABLET ORALLY ONCE A DAY, NOTES: ONE DAY LEFT NOT-TAKING KEFLEX 500 MG CAPSULE 1 CAPSULE ORALLY EVERY 12 HRS, NOTES: FINISHED THIS AM NOT-TAKING CIALIS 20 MG TABLET 1 TABLET ORALLY NEEDED 1 HOUR PRIOR TO SEXUAL ACTIVITY UNKNOWN HYDROCHLOROTHIAZIDE 25 25 MG TABLET 1 TABLET ORAL ONCE PER DAY MEDICATION LIST REVIEWED AND RECONCILED WITH THE PATIENT PAST MEDICAL HISTORY BIPOLAR DISORDER HTN HIGH COLESTEROL COPD GERD DDD HX OF URINARY RETENTION MODERNA COVID-19 1ST: 11/17/2020 2ND: 12/15/2020 PNEUMOVAX 10/01/2020 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 CHRONIC BACK PAIN ALCOHOLISM HYPERLIPIDEMIA HYPERTENSIVE DISORDER DEPRESSION 7 FALLS THIS YEAR, HAD SOME BRUISE AND DID GO TO THE ER FOR A COUPLE OF THEM, NO MAJOR INJURIES ALLERGIES TRAMADOL HCL: NAUSEA/VOMITING - SIDE EFFECTS CHANTIX: NAUSEA/VOMITING - SIDE EFFECTS SEASONAL ALLERGIES: CAUSES WATERY & ITCHY EYES - ALLERGY SOCIAL HISTORY GENERAL: TOBACCO USE ARE YOU A:CURRENT SMOKER ARE YOU INTERESTED IN QUITTING?NOT READY TO QUIT COUNSELED THE PATIENT ON SMOKING EFFECTS, EDUCATION [id number]/30/2021 HOW MANY CIGARETTES A DAY DO YOU SMOKE?6-10 HOW SOON AFTER YOU WAKE UP DO YOU SMOKE YOUR FIRST CIGARETTE?WITHIN 5 MIN HOW OFTEN DO YOU SMOKE CIGARETTES?EVERY DAY PATIENT COUNSELED ON THE DANGERS OF TOBACCO USE AND URGED TO QUIT:04/22/2021 LATEX QUESTIONNAIRE LATEX ALLERGY : HAVE YOU EVER DEVELOPED ANY TYPE OF REACTION AFTER HANDLING LATEX PRODUCTS SUCH RUBBER GLOVES, CONDOMS, DIAPHRAGMS, BALLOONS, SOCKS, OR UNDERWEAR?NO LATEX ALLERGY : HAVE YOU EVER DEVELOPED ANY TYPE OF REACTION DURING OR AFTER DENTAL APPOINTMENT, VAGINAL/RECTAL EXAMINATION, SURGICAL PROCEDURE, OR ANY OTHER EXPOSURE?NO LATEX RISK : HAVE YOU EVER HAD ANY DIFFICULTY BREATHING OR HIVES AFTER EATING OR HANDLING ANY FRUITS, OR VEGETABLES; SUCH KIWI, BANANAS, STONE FRUITS, OR CHESTNUTSNO LATEX RISK : DO YOU HAVE A PREVIOUS PERSONAL HISTORY OF MORE THAN NINE SURGERIES, SPINA BIFIDA, OR REPEATED CATHERIZATIONS? NO LATEX RISK : ARE YOU FREQUENTLY EXPOSED TO LATEX PRODUCTS IN YOUR OCCUPATION?NO DATE ASKED : 04/22/2021 ALCOHOL USE: YES. ALCOHOL SCREENING POINTS: 7, INTERPRETATION: POSITIVE. RECREATIONAL DRUG USE ACCEDES OCCASIONAL MARAJUANA. CAFFEINE CAFFEINE USE?YES HOW OFTEN AND HOW MUCH? 2/DAY CUPS COFFEE SEXUAL HX HAD SEX IN THE LAST 12 MONTHS (VAGINAL, ORAL, OR ANAL)?: YES, WITH: WOMEN ONLY, USE PROTECTION?: NO, PREVENTION STRATEGIES DISCUSSED:: OTHER, HAVE YOU EVER HAD AN STD?: NO. CAODAISM NO ADVENTISM BELIEFS THAT WOULD IMPACT HEALTH CARE. LANGUAGE MALDIVIAN. 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 OCCUPATION: DISABLED. DIET: REGULAR. EXERCISE: WALKS. MARITAL STATUS: . OTHERS AT HOME: SEPERATED. REVIEW OF SYSTEMS CONSTITUTIONAL: ANY RECENT FEVER NO . CHILLS NO . WEIGHT CHANGE OF UNKNOWN REASONS NO . GASTROENTEROLOGY: NEW UNEXPLAINABLE CHANGES IN BOWEL CONTROL NO . CONSTIPATION NO . GENITOURINARY: ANY NEW CHANGE IN BLADDER CONTROL? NO . NEUROLOGY: NEW ONSET DIZZINESS OR NEUROLOGICAL CHANGES NOT MENTIONED NO . NEW NUMBNESS OR PAIN PATTERNS NOT MENTIONED AND PERTINENT TO TODAY'S VISIT NO . CARDIOLOGY: NEW CHEST PRESSURE NO . PATIENT DENIES NO . RESPIRATORY: UNEXPLAINABLE COUGH NO . NEW SHORTNESS OF BREATH NO . VITAL SIGNS WT 220 LBS, WT-KG 99.79 KG, HT 74 IN, BMI 28.24 INDEX, BP 139/81 MM HG, HR 119 /MIN, RR 18 /MIN, TEMP 98.7 F, OXYGEN SAT % 98%, SAFE IN ENV? (Y/N) YES, NA INITIALS AW 1012, REVIEWED BY: LAURA. EXAMINATION GENERAL: THE PATIENT IS ALERT, ORIENTED TIMES THREE AND COOPERATIVE. LUNGS ARE CLEAR TO AUSCULTATION. HEART SHOWS REGULAR RHYTHM, NO MURMURS AND NO GALLOPS. TENDERENSS IN THE LOWER BACK IN THE FACET JOINTS ON THE RIGHT AND LEFT SIDE. 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 OTHERS CLINICAL NOTES: PAT COMPLETED 05/02/21 Juan Miguel ALLRED RN I DISCUSSED ALTERNATIVES WITH MR. BRAR. WE AGREE ON DOING A BILATERAL DIAGNOSTIC FACET BLOCK L3-L4, L4-L5, L5-S1 #1. DEPENDING ON THE RESULTS, WE WILL TAKE IT FROM THERE. THE PATIENT REPORTS UNDERSTANDING AND AGREES WITH TE PLAN. I, BALTAZAR CUETO, DOCUMENTED THE ABOVE INFORMATION ACTING A SCRIBE FOR DR. VASQUEZ. I HAVE REVIEWED THE ABOVE DOCUMENT, WRITTEN BY BALTAZAR CUETO, NURSE CARE MANAGER, AND I VERIFY THAT IT IS ACCURATE. PROCEDURES PAIN NURSING RECORD PROCEDURE IN ROOM 1125, PHYSICIAN IN ROOM 1127, START 1132, FINISH 1145, PHYSICIAN OUT OF ROOM 1145, OUT OF ROOM 1150, ECG NORMAL SINUS, PATIENT SHIELDED N/A, SAFETY STRAP YES, PREP BETADINE, DRESSING TEGADERM DR. VASQUEZ LOC: 1. ALERT, ORIENTED, [facility] 05/03/2021 11:33:40 AM > RESP: 1. REGULAR, NO DYSPNEA, [facility] 05/03/2021 11:33:44 AM > COLOR: 1. PINKODILIA,[facility] 05/03/2021 11:33:49 AM > SKIN: 1. WARM, DRY, ODILIA,[facility] 05/03/2021 11:33:55 AM > POSITION: 1. PRONEODILIA,[facility] 05/03/2021 11:34:00 AM > VITALS: 1130 - HR99, 98%, 153/96, R14 TBRADLEYRN 1145 - HR 98, 98%, 155/97, R14 TBRADLEYRN 1210 - HR 95, 97% 13/86, R14 TBRADLEYRN COMPLETION OF PROCEDURE APPOINTMENT: POST PAIN 0, DRESSING SITE DRY AND INTACT, IV DISCONTINUED, SITE CLEAR, CATHETER INTACT, GAIT WHEELCHAIR, TEACHING COMPLETED, PATIENT ACKNOWLEDGES UNDERSTANDING YES, PROCEDURE APPOINTMENT COMPLETED AT 1210 PN LUMBAR FACET BLOCK DIAGNOSTIC PRE PROCEDURE DIAGNOSIS LUMBAR SPONDYLOSIS, LUMBOSACRAL SPONDYLOSIS POST PROCEDURE DIAGNOSIS LUMBAR SPONDYLOSIS, LUMBOSACRAL SPONDYLOSIS PROCEDURE BILATERAL L4-L5 AND BILATERAL L5-S1 FACET BLOCK DIAGNOSTIC NUMBER [address] ANTHONY VASQUEZ ACCOUNTING METHODS ANALYST NONE ANESTHESIA LOCAL PRE PROCEDURE NOTE THE PATIENT WITH HISTORY OF CHRONIC LOW BACK PAIN. I EVALUATED THE PATIENT AND REVIEWED THE CHART. I WENT OVER THE RISKS, ALTERNATIVES, AND BENEFITS ASSOCIATED WITH THIS PROCEDURE. THE PATIENT WOULD LIKE TO PROCEED AND GAVE CONSENT TO PERFORM THE PROCEDURE. AGREED WITH THE PATIENT, WE ARE DOING THIS PROCEDURE TO DETERMINE IF THE PATIENT IS A CANDIDATE FOR A RADIOFREQUENCY ABLATION OF THE FACETS JOINTS. THE PATIENT DENIES UNEXPLAINABLE WEIGHT LOSS, FEVER, CHILLS, OR NEW CHANGES IN URINARY OR BOWEL CONTROL. THE PATIENT IS COVID-19 NEGATIVE DESCRIPTION OF PROCEDURE THE PATIENT WAS BROUGHT TO THE PROCEDURE ROOM AND PLACED IN THE PRONE POSITION. THE LUMBOSACRAL AREA WAS CLEANED WITH CHLORAPREP SOLUTION AND DRAPED ASEPTICALLY. THE PROCEDURE WAS DONE UNDER STERILE CONDITIONS. A TIMEOUT WAS PERFORMED WHERE THE CONSENTED SITE WAS VERIFIED WITH EVERYONE IN THE ROOM. UNDER FLUOROSCOPIC GUIDANCE, TARGETS WERE SELECTED AT THE INTERSECTION OF THE RIGHT AND LEFT TRANSVERSE PROCESS OF L4, L5 AND ALA OF S1 WITH ITS RESPECTIVE SUPERIOR ARTICULAR PROCESS WITH A TARGET OF THE MEDIAN BRANCHES OF L3, L4 AND THE DORSAL RAMI OF L5. I CONFIRMED AGAIN THE SITE OF TARGET. LIDOCAINE WAS USED TO NUMB THE SKIN AND THE SUBCUTANEOUS TISSUE BELOW IT. SPINAL NEEDLE, 22-GAUGE, WAS ADVANCED UNDER FLUOROSCOPIC GUIDANCE AND FOLLOWING PATIENT FEEDBACK UNTIL THE TARGETS WERE REACHED. POSITION OF THE NEEDLES WAS VERIFIED WITH AP AND LATERAL VIEWS. AFTER PROPER POSITION OF THE NEEDLES WAS ACHIEVED, ISOVUE-M DYE 30%, 0.1 ML, WAS INJECTED AT EACH SITE SHOWING ADEQUATE SPREAD OF THE DYE. THEN, A SOLUTION OF 0.4 ML OF BUPIVACAINE 0.25% WAS INJECTED AT EACH SITE. THE MEDICATIONS WERE VERIFIED WITH THE NURSE. THERE WAS NO EVIDENCE OF BLOOD, PARESTHESIA OR CEREBROSPINAL FLUID DURING THE PROCEDURE. THE PATIENT WAS SENT TO THE RECOVERY ROOM. THE PATIENT WAS MOVING THE EXTREMITIES AND DOING WELL. THERE WERE NO COMPLICATIONS DURING THE PROCEDURE. ESTIMATED BLOOD LOSS WAS LESS THAN 5 ML. FLUOROSCOPY TIME WAS 36 SECONDS POST PROCEDURE NOTE THE PATIENT WILL DOCUMENT THE PAIN LEVEL AND RESPONSE TO THIS PROCEDURE PER PAIN DIARY. THE PATIENT WILL BE SEEN IN A FOLLOW UP IN THE NEXT FEW WEEKS. FURTHER DETERMINATION FOR THE PATIENT'S CASE WILL BE DONE AT THE NEXT VISIT. INSTRUCTIONS WERE GIVEN, QUESTIONS WERE ANSWERED, AND THE PATIENT EXPRESSED UNDERSTANDING AND AGREED WITH THE PLAN. I, BALTAZAR CUETO, DOCUMENTED THE ABOVE INFORMATION ACTING A SCRIBE FOR DR. VASQUEZ. I HAVE REVIEWED THE ABOVE DOCUMENT, WRITTEN BY BALTAZAR CUETO, NURSE CARE MANAGER, AND I VERIFY THAT IT IS ACCURATE DIAGNOSTIC IMAGING [facility]O GUIDE SPINE INJECTION (PAIN)[id number] VISIT CODES PROCEDURE CODES 78511 INJ PARAVERT F JNT L/S 1 LEV, MODIFIERS: 50 [id number] INJ PARAVERT F JNT L/S 2 LEV, MODIFIERS: 50 DISPOSITION & COMMUNICATION FOLLOW UP FOLLOW UP WITH FORCE ADJUSTMENT SUPERVISOR (REASON: POST BILATERAL DIAGNOSTIC LUMBAR FACET BLOCK L4-L5, L5-S1 #1) ELECTRONICALLY SIGNED BY ANTHONY VASQUEZ MD, ON 05/06/2021 AT 02:06 PM EDT DISCLAIMER : THIS IS A VISIT SUMMARY EXTRACTED FROM THE [facility] CHART. IT IS NOT A COPY OF THE [facility] PROGRESS NOTE. MTDD
--- NOTE | 2021-05-07 01:09 | ECWPNPC ---
PATIENT NAME: JULIEN BRAR : 1955 GENDER: MALE VISIT DATE: 05/03/2021 DISCHARGE DATE: 05/03/21 1208 VISIT LOCKED DATE TIME: PHYSICIAN: ANTHONY VASQUEZ MD RESOURCE: ANTHONY VASQUEZ MD REASON FOR APPOINTMENT 1. BILATERAL DIAGNOSTIC LUMBAR FACET BLOCK L3-L4, L4-5, L5-S1 #1 HISTORY OF PRESENT ILLNESS GENERAL: 65-YEAR-OLD MALE PATIENT WITH A HISTORY OF CHRONIC LOW BACK PAIN. THE PATIENT DESCRIBES THE PAIN CONSTANT AND STEADY WITH A PAIN SCORE RANGING FROM 5-10/10. THE PAIN INCREASES WITH ACTIVITES. HE HAS PROBLEMS STANDING. FALL RISK SCREENING: SCREENING 8 FALLS IN THE LAST YEAR- WITHOUT INJURY. PAIN SCREENING: PATIENT HAS A COMPLAINT OF ACUTE OR CHRONIC PAIN :YES LOCATION OF PAIN:LOW BACK INTENSITY OF PAIN (SCALE OF 1 TO 10):7 WHAT DOES YOUR PAIN FEEL LIKE:ACHING DULL DURATION:CONTINOUS, CONSTANT, STEADY, ALL DAY PAIN IS INCREASED BY:PROLONGED STANDING PAIN IS DECREASED BY:OTHERS LAY ON SIDE NURSING NOTE: -. PAIN CENTER INTAKE QUESTIONS: DO YOU HAVE A HISTORY OF MRSA? :NO DO YOU TAKE A BLOOD THINNERS? :NO DO YOU HAVE ANY BLEEDING DISORDERS? :NO ANY NEW NUMBNESS OR WEAKNESS IN YOUR LEGS OR ARMS? :NO OCCASIONAL ANY PACEMAKER,DEFIBRILLATOR, OR DORSAL COLUMN STIMULATOR? :NO DO YOU HAVE ANY RASHES OR OPEN SORES? :NO ARE YOU ALLERGIC TO IV DYE? :NO ARE YOU DIABETIC? :NO ANY NEW PROBLEMS WITH YOUR MEDICATIONS? :NO HAVE YOU RECEIVED A VACCINE IN THE PAST 30 DAYS? :NO DO YOU PLAN TO RECEIVE A VACCINE IN THE NEXT 21 DAYS? :NO DO YOU TAKE ANY IMMUNOSUPPRESSIVE MEDICATIONS? :NO ANY HISTORY OF SEIZURES? :NO ANY HISTORY OF CARDIAC ISSUES OR EVENTS? :NO DO YOU HAVE ANY KIDNEY OR LIVER DISEASE? :NO DO YOU HAVE SLEEP APNEA? :NO ANY RECENT HEAD INJURY? :NO DO YOU HAVE ANY NEW INFECTIONS? :NO IS THERE A CHANCE YOU COULD BE ? :NO ARE YOU BREAST FEEDING? :NO WHEN DID YOU LAST EAT? : - WHEN DID YOU LAST DRINK? : - WHAT DID YOU LAST DRINK? : - NAME OF PERSON DRIVING YOU HOME? : TRANSIT DO YOU HAVE ANY OTHER QUESTIONS OR CONCERNS? : - CURRENT MEDICATIONS TAKING TIZANIDINE HCL 4 MG TABLET 1 TABLET NEEDED ORALLY THREE TIMES A DAY TAKING LAMOTRIGINE 25 MG TABLET 1 TABLET ORALLY TAKING SILDENAFIL CITRATE 20 MG TABLET 1 TABLET ORALLY ONCE A DAY TAKING DIVALPROEX SODIUM 500 MG TABLET DELAYED RELEASE 1 TABLET ORALLY THREE A DAY TAKING AMLODIPINE BESYLATE 10 MG TABLET 1 TABLET ORALLY ONCE A DAY TAKING TRAZODONE 100 100MG TABLET 1 TABLET ORAL ONCE PER DAY, NOTES: 50MG AT HS TAKING PRAVASTATIN 80 80MG TABLET 1 TABLET ORAL ONCE PER DAY TAKING LISINOPRIL 40 40 MG TABLET 1 TABLET ORAL ONCE PER DAY TAKING MAGNESIUM 250 MG TABLET ORALLY DAILY, NOTES: 400MG TAKING ESOMEPRAZOLE MAGNESIUM 40 MG CAPSULE DELAYED RELEASE 1 CAPSULE ORALLY ONCE A DAY TAKING MULTIVITAMIN ADULTS 50+ - TABLET DIRECTED ORALLY TAKING COMBIVENT RESPIMAT 20-100 MCG/ACT AEROSOL 1 PUFF INHALATION FOUR TIMES DAILY TAKING VITAMIN D TAKING ANORO ELLIPTA 62.5-25 MCG/INH AEROSOL POWDER BREATH ACTIVATED 1 PUFF INHALATION ONCE A DAY TAKING PROAIR HFA 108 (90 BASE) MCG/ACT AEROSOL SOLUTION 2 PUFFS NEEDED INHALATION EVERY 4 HRS TAKING FENOFIBRATE 145 TABLET 1 TABLET ORALLY ONCE A DAY NOT-TAKING ACAMPROSATE CALCIUM 333 MG TABLET DELAYED RELEASE 2 TABLETS ORALLY THREE TIMES A DAY NOT-TAKING TAMSULOSIN HCL 0.4 MG CAPSULE 1 CAPSULE ORALLY ONCE A DAY NOT-TAKING SPIRIVA HANDIHALER 18 MCG CAPSULE 1 CAPSULE INHALATION ONCE A DAY, NOTES: NOT SURE NOT-TAKING DEPAKOTE 500 MG TABLET DELAYED RELEASE 1 TABLET ORALLY TID NOT-TAKING SODIUM CHLORIDE 1 GM TABLET DIRECTED ORALLY BID NOT-TAKING FAMOTIDINE 40 MG TABLET 1 TABLET AT BEDTIME ORALLY ONCE A DAY NOT-TAKING CIPRO 500 MG TABLET 1 TABLET ORALLY EVERY 12 HRS NOT-TAKING SYMBICORT 160-4.5 MCG/ACT AEROSOL 2 PUFFS INHALATION TWICE A DAY NOT-TAKING LEVAQUIN 500 MG TABLET 1 TABLET ORALLY ONCE A DAY, NOTES: ONE DAY LEFT NOT-TAKING KEFLEX 500 MG CAPSULE 1 CAPSULE ORALLY EVERY 12 HRS, NOTES: FINISHED THIS AM NOT-TAKING CIALIS 20 MG TABLET 1 TABLET ORALLY NEEDED 1 HOUR PRIOR TO SEXUAL ACTIVITY UNKNOWN HYDROCHLOROTHIAZIDE 25 25 MG TABLET 1 TABLET ORAL ONCE PER DAY MEDICATION LIST REVIEWED AND RECONCILED WITH THE PATIENT PAST MEDICAL HISTORY BIPOLAR DISORDER HTN HIGH COLESTEROL COPD GERD DDD HX OF URINARY RETENTION MODERNA COVID-19 1ST: 11/17/2020 2ND: 12/15/2020 PNEUMOVAX 10/01/2020 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 CHRONIC BACK PAIN ALCOHOLISM HYPERLIPIDEMIA HYPERTENSIVE DISORDER DEPRESSION 7 FALLS THIS YEAR, HAD SOME BRUISE AND DID GO TO THE ER FOR A COUPLE OF THEM, NO MAJOR INJURIES ALLERGIES TRAMADOL HCL: NAUSEA/VOMITING - SIDE EFFECTS CHANTIX: NAUSEA/VOMITING - SIDE EFFECTS SEASONAL ALLERGIES: CAUSES WATERY & ITCHY EYES - ALLERGY SOCIAL HISTORY GENERAL: TOBACCO USE ARE YOU A:CURRENT SMOKER ARE YOU INTERESTED IN QUITTING?NOT READY TO QUIT COUNSELED THE PATIENT ON SMOKING EFFECTS, EDUCATION [id number]/2021 HOW MANY CIGARETTES A DAY DO YOU SMOKE?6-10 HOW SOON AFTER YOU WAKE UP DO YOU SMOKE YOUR FIRST CIGARETTE?WITHIN 5 MIN HOW OFTEN DO YOU SMOKE CIGARETTES?EVERY DAY PATIENT COUNSELED ON THE DANGERS OF TOBACCO USE AND URGED TO QUIT:04/22/2021 LATEX QUESTIONNAIRE LATEX ALLERGY : HAVE YOU EVER DEVELOPED ANY TYPE OF REACTION AFTER HANDLING LATEX PRODUCTS SUCH RUBBER GLOVES, CONDOMS, DIAPHRAGMS, BALLOONS, SOCKS, OR UNDERWEAR?NO LATEX ALLERGY : HAVE YOU EVER DEVELOPED ANY TYPE OF REACTION DURING OR AFTER DENTAL APPOINTMENT, VAGINAL/RECTAL EXAMINATION, SURGICAL PROCEDURE, OR ANY OTHER EXPOSURE?NO LATEX RISK : HAVE YOU EVER HAD ANY DIFFICULTY BREATHING OR HIVES AFTER EATING OR HANDLING ANY FRUITS, OR VEGETABLES; SUCH KIWI, BANANAS, STONE FRUITS, OR CHESTNUTSNO LATEX RISK : DO YOU HAVE A PREVIOUS PERSONAL HISTORY OF MORE THAN NINE SURGERIES, SPINA BIFIDA, OR REPEATED CATHERIZATIONS? NO LATEX RISK : ARE YOU FREQUENTLY EXPOSED TO LATEX PRODUCTS IN YOUR OCCUPATION?NO DATE ASKED : 04/22/2021 ALCOHOL USE: YES. ALCOHOL SCREENING POINTS: 7, INTERPRETATION: POSITIVE. RECREATIONAL DRUG USE ACCEDES OCCASIONAL MARAJUANA. CAFFEINE CAFFEINE USE?YES HOW OFTEN AND HOW MUCH? 2/DAY CUPS COFFEE SEXUAL HX HAD SEX IN THE LAST 12 MONTHS (VAGINAL, ORAL, OR ANAL)?: YES, WITH: WOMEN ONLY, USE PROTECTION?: NO, PREVENTION STRATEGIES DISCUSSED:: OTHER, HAVE YOU EVER HAD AN STD?: NO. JEHOVAH'S WITNESS NO RESTORATIONIST BELIEFS THAT WOULD IMPACT HEALTH CARE. LANGUAGE TRINIDADIAN. 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 OCCUPATION: DISABLED. DIET: REGULAR. EXERCISE: WALKS. MARITAL STATUS: . OTHERS AT HOME: SEPERATED. REVIEW OF SYSTEMS CONSTITUTIONAL: ANY RECENT FEVER NO . CHILLS NO . WEIGHT CHANGE OF UNKNOWN REASONS NO . GASTROENTEROLOGY: NEW UNEXPLAINABLE CHANGES IN BOWEL CONTROL NO . CONSTIPATION NO . GENITOURINARY: ANY NEW CHANGE IN BLADDER CONTROL? NO . NEUROLOGY: NEW ONSET DIZZINESS OR NEUROLOGICAL CHANGES NOT MENTIONED NO . NEW NUMBNESS OR PAIN PATTERNS NOT MENTIONED AND PERTINENT TO TODAY'S VISIT NO . CARDIOLOGY: NEW CHEST PRESSURE NO . PATIENT DENIES NO . RESPIRATORY: UNEXPLAINABLE COUGH NO . NEW SHORTNESS OF BREATH NO . VITAL SIGNS WT 220 LBS, WT-KG 99.79 KG, HT 74 IN, BMI 28.24 INDEX, BP 139/81 MM HG, HR 119 /MIN, RR 18 /MIN, TEMP 98.7 F, OXYGEN SAT % 98%, SAFE IN ENV? (Y/N) YES, NA INITIALS AW 1012, REVIEWED BY: LAURA. EXAMINATION GENERAL: THE PATIENT IS ALERT, ORIENTED TIMES THREE AND COOPERATIVE. LUNGS ARE CLEAR TO AUSCULTATION. HEART SHOWS REGULAR RHYTHM, NO MURMURS AND NO GALLOPS. TENDERENSS IN THE LOWER BACK IN THE FACET JOINTS ON THE RIGHT AND LEFT SIDE. ASSESSMENTS SPONDYLOSIS WITHOUT MYELOPATHY OR RADICULOPATHY, LUMBAR REGION - M47.816 (PRIMARY) LUMBAR FACET ARTHROPATHY - M47.816 TREATMENT SPONDYLOSIS WITHOUT MYELOPATHY OR RADICULOPATHY, LUMBAR REGION COMPLETION OF PROCEDURAL VISIT WHEN MEETS [id number],TOM 05/03/2021 12:18:15 PM > CRITERIA MET SALINE [id number],TOM 05/03/2021 11:56:11 AM > 20G IV ACCESS OBTAINED BY SASHA ISIDRO RN @1100 SUSANNE HARTLEY 05/03/2021 11:57:08 AM > RAC NOTES: PATIENT REPORTED PAIN PRIOR TO PROCEDURE 05/03, POST PROCEDURE LAURA. OTHERS CLINICAL NOTES: PAT COMPLETED 05/02/21 Juan Miguel ALLRED RN I DISCUSSED ALTERNATIVES WITH MR. BRAR. WE AGREE ON DOING A BILATERAL DIAGNOSTIC FACET BLOCK L3-L4, L4-L5, L5-S1 #1. DEPENDING ON THE RESULTS, WE WILL TAKE IT FROM THERE. THE PATIENT REPORTS UNDERSTANDING AND AGREES WITH TE PLAN. I, BALTAZAR CUETO, DOCUMENTED THE ABOVE INFORMATION ACTING A SCRIBE FOR DR. VASQUEZ. I HAVE REVIEWED THE ABOVE DOCUMENT, WRITTEN BY BALTAZAR CUETO, BRONC BUSTER, AND I VERIFY THAT IT IS ACCURATE. PROCEDURES PAIN NURSING RECORD PROCEDURE IN ROOM 1125, PHYSICIAN IN ROOM 1127, START 1132, FINISH 1145, PHYSICIAN OUT OF ROOM 1145, OUT OF ROOM 1150, ECG NORMAL SINUS, PATIENT SHIELDED N/A, SAFETY STRAP YES, PREP BETADINE, DRESSING TEGADERM DR. VASQUEZ LOC: 1. ALERT, ORIENTED, [place],[facility] 05/03/2021 11:33:40 AM > RESP: 1. REGULAR, NO DYSPNEA, [place],[facility] 05/03/2021 11:33:44 AM > COLOR: 1. PINKODILIA,[facility] 05/03/2021 11:33:49 AM > SKIN: 1. WARM, DRY, ODILIA,[facility] 05/03/2021 11:33:55 AM > POSITION: 1. PRONEODILIA,[facility] 05/03/2021 11:34:00 AM > VITALS: 1130 - HR99, 98%, 153/96, R14 TBRADLEYRN 1145 - HR 98, 98%, 155/97, R14 TBRADLEYRN 1210 - HR 95, 97% 13/86, R14 TBRADLEYRN COMPLETION OF PROCEDURE APPOINTMENT: POST PAIN 0, DRESSING SITE DRY AND INTACT, IV DISCONTINUED, SITE CLEAR, CATHETER INTACT, GAIT WHEELCHAIR, TEACHING COMPLETED, PATIENT ACKNOWLEDGES UNDERSTANDING YES, PROCEDURE APPOINTMENT COMPLETED AT 1210 PN LUMBAR FACET BLOCK DIAGNOSTIC PRE PROCEDURE DIAGNOSIS LUMBAR SPONDYLOSIS, LUMBOSACRAL SPONDYLOSIS POST PROCEDURE DIAGNOSIS LUMBAR SPONDYLOSIS, LUMBOSACRAL SPONDYLOSIS PROCEDURE BILATERAL L4-L5 AND BILATERAL L5-S1 FACET BLOCK DIAGNOSTIC NUMBER [address] ANTHONY VASQUEZ POWERPLANT OPERATOR NONE ANESTHESIA LOCAL PRE PROCEDURE NOTE THE PATIENT WITH HISTORY OF CHRONIC LOW BACK PAIN. I EVALUATED THE PATIENT AND REVIEWED THE CHART. I WENT OVER THE RISKS, ALTERNATIVES, AND BENEFITS ASSOCIATED WITH THIS PROCEDURE. THE PATIENT WOULD LIKE TO PROCEED AND GAVE CONSENT TO PERFORM THE PROCEDURE. AGREED WITH THE PATIENT, WE ARE DOING THIS PROCEDURE TO DETERMINE IF THE PATIENT IS A CANDIDATE FOR A RADIOFREQUENCY ABLATION OF THE FACETS JOINTS. THE PATIENT DENIES UNEXPLAINABLE WEIGHT LOSS, FEVER, CHILLS, OR NEW CHANGES IN URINARY OR BOWEL CONTROL. THE PATIENT IS COVID-19 NEGATIVE DESCRIPTION OF PROCEDURE THE PATIENT WAS BROUGHT TO THE PROCEDURE ROOM AND PLACED IN THE PRONE POSITION. THE LUMBOSACRAL AREA WAS CLEANED WITH CHLORAPREP SOLUTION AND DRAPED ASEPTICALLY. THE PROCEDURE WAS DONE UNDER STERILE CONDITIONS. A TIMEOUT WAS PERFORMED WHERE THE CONSENTED SITE WAS VERIFIED WITH EVERYONE IN THE ROOM. UNDER FLUOROSCOPIC GUIDANCE, TARGETS WERE SELECTED AT THE INTERSECTION OF THE RIGHT AND LEFT TRANSVERSE PROCESS OF L4, L5 AND ALA OF S1 WITH ITS RESPECTIVE SUPERIOR ARTICULAR PROCESS WITH A TARGET OF THE MEDIAN BRANCHES OF L3, L4 AND THE DORSAL RAMI OF L5. I CONFIRMED AGAIN THE SITE OF TARGET. LIDOCAINE WAS USED TO NUMB THE SKIN AND THE SUBCUTANEOUS TISSUE BELOW IT. SPINAL NEEDLE, 22-GAUGE, WAS ADVANCED UNDER FLUOROSCOPIC GUIDANCE AND FOLLOWING PATIENT FEEDBACK UNTIL THE TARGETS WERE REACHED. POSITION OF THE NEEDLES WAS VERIFIED WITH AP AND LATERAL VIEWS. AFTER PROPER POSITION OF THE NEEDLES WAS ACHIEVED, ISOVUE-M DYE 30%, 0.1 ML, WAS INJECTED AT EACH SITE SHOWING ADEQUATE SPREAD OF THE DYE. THEN, A SOLUTION OF 0.4 ML OF BUPIVACAINE 0.25% WAS INJECTED AT EACH SITE. THE MEDICATIONS WERE VERIFIED WITH THE NURSE. THERE WAS NO EVIDENCE OF BLOOD, PARESTHESIA OR CEREBROSPINAL FLUID DURING THE PROCEDURE. THE PATIENT WAS SENT TO THE RECOVERY ROOM. THE PATIENT WAS MOVING THE EXTREMITIES AND DOING WELL. THERE WERE NO COMPLICATIONS DURING THE PROCEDURE. ESTIMATED BLOOD LOSS WAS LESS THAN 5 ML. FLUOROSCOPY TIME WAS 36 SECONDS POST PROCEDURE NOTE THE PATIENT WILL DOCUMENT THE PAIN LEVEL AND RESPONSE TO THIS PROCEDURE PER PAIN DIARY. THE PATIENT WILL BE SEEN IN A FOLLOW UP IN THE NEXT FEW WEEKS. FURTHER DETERMINATION FOR THE PATIENT'S CASE WILL BE DONE AT THE NEXT VISIT. INSTRUCTIONS WERE GIVEN, QUESTIONS WERE ANSWERED, AND THE PATIENT EXPRESSED UNDERSTANDING AND AGREED WITH THE PLAN. I, BALTAZAR CUETO, DOCUMENTED THE ABOVE INFORMATION ACTING A SCRIBE FOR DR. VASQUEZ. I HAVE REVIEWED THE ABOVE DOCUMENT, WRITTEN BY BALTAZAR CUETO, BRONC BUSTER, AND I VERIFY THAT IT IS ACCURATE DIAGNOSTIC IMAGING [facility] FLUORO GUIDE SPINE INJECTION (PAIN)[id number] VISIT CODES PROCEDURE CODES 87526 INJ PARAVERT F JNT L/S 1 LEV, MODIFIERS: 50 [id number] INJ PARAVERT F JNT L/S 2 LEV, MODIFIERS: 50 DISPOSITION & COMMUNICATION FOLLOW UP FOLLOW UP WITH DEAD MAIL CHECKER (REASON: POST BILATERAL DIAGNOSTIC LUMBAR FACET BLOCK L4-L5, L5-S1 #1) ELECTRONICALLY SIGNED BY ANTHONY VASQUEZ MD, ON 05/06/2021 AT 02:06 PM EDT DISCLAIMER : THIS IS A VISIT SUMMARY EXTRACTED FROM THE [employer] CHART. IT IS NOT A COPY OF THE [employer] PROGRESS NOTE. MTDD
--- NOTE | 2021-05-07 01:12 | ECWPNPC ---
PATIENT NAME: JUILEN BRAR : 1955 GENDER: MALE VISIT DATE: 05/03/2021 DISCHARGE DATE: 05/03/21 1208 VISIT LOCKED DATE TIME: PHYSICIAN: ANTHONY VASQUEZ MD RESOURCE: ANTHONY VASQUEZ MD REASON FOR APPOINTMENT 1. BILATERAL DIAGNOSTIC LUMBAR FACET BLOCK L3-L4, L4-5, L5-S1 #1 HISTORY OF PRESENT ILLNESS GENERAL: 65-YEAR-OLD MALE PATIENT WITH A HISTORY OF CHRONIC LOW BACK PAIN. THE PATIENT DESCRIBES THE PAIN CONSTANT AND STEADY WITH A PAIN SCORE RANGING FROM 5-10/10. THE PAIN INCREASES WITH ACTIVITES. HE HAS PROBLEMS STANDING. FALL RISK SCREENING: SCREENING 8 FALLS IN THE LAST YEAR- WITHOUT INJURY. PAIN SCREENING: PATIENT HAS A COMPLAINT OF ACUTE OR CHRONIC PAIN :YES LOCATION OF PAIN:LOW BACK INTENSITY OF PAIN (SCALE OF 1 TO 10):7 WHAT DOES YOUR PAIN FEEL LIKE:ACHING DULL DURATION:CONTINOUS, CONSTANT, STEADY, ALL DAY PAIN IS INCREASED BY:PROLONGED STANDING PAIN IS DECREASED BY:OTHERS LAY ON SIDE NURSING NOTE: -. PAIN CENTER INTAKE QUESTIONS: DO YOU HAVE A HISTORY OF MRSA? :NO DO YOU TAKE A BLOOD THINNERS? :NO DO YOU HAVE ANY BLEEDING DISORDERS? :NO ANY NEW NUMBNESS OR WEAKNESS IN YOUR LEGS OR ARMS? :NO OCCASIONAL ANY PACEMAKER,DEFIBRILLATOR, OR DORSAL COLUMN STIMULATOR? :NO DO YOU HAVE ANY RASHES OR OPEN SORES? :NO ARE YOU ALLERGIC TO IV DYE? :NO ARE YOU DIABETIC? :NO ANY NEW PROBLEMS WITH YOUR MEDICATIONS? :NO HAVE YOU RECEIVED A VACCINE IN THE PAST 30 DAYS? :NO DO YOU PLAN TO RECEIVE A VACCINE IN THE NEXT 21 DAYS? :NO DO YOU TAKE ANY IMMUNOSUPPRESSIVE MEDICATIONS? :NO ANY HISTORY OF SEIZURES? :NO ANY HISTORY OF CARDIAC ISSUES OR EVENTS? :NO DO YOU HAVE ANY KIDNEY OR LIVER DISEASE? :NO DO YOU HAVE SLEEP APNEA? :NO ANY RECENT HEAD INJURY? :NO DO YOU HAVE ANY NEW INFECTIONS? :NO IS THERE A CHANCE YOU COULD BE ? :NO ARE YOU BREAST FEEDING? :NO WHEN DID YOU LAST EAT? : - WHEN DID YOU LAST DRINK? : - WHAT DID YOU LAST DRINK? : - NAME OF PERSON DRIVING YOU HOME? : TRANSIT DO YOU HAVE ANY OTHER QUESTIONS OR CONCERNS? : - CURRENT MEDICATIONS TAKING TIZANIDINE HCL 4 MG TABLET 1 TABLET NEEDED ORALLY THREE TIMES A DAY TAKING LAMOTRIGINE 25 MG TABLET 1 TABLET ORALLY TAKING SILDENAFIL CITRATE 20 MG TABLET 1 TABLET ORALLY ONCE A DAY TAKING DIVALPROEX SODIUM 500 MG TABLET DELAYED RELEASE 1 TABLET ORALLY THREE A DAY TAKING AMLODIPINE BESYLATE 10 MG TABLET 1 TABLET ORALLY ONCE A DAY TAKING TRAZODONE 100 100MG TABLET 1 TABLET ORAL ONCE PER DAY, NOTES: 50MG AT HS TAKING PRAVASTATIN 80 80MG TABLET 1 TABLET ORAL ONCE PER DAY TAKING LISINOPRIL 40 40 MG TABLET 1 TABLET ORAL ONCE PER DAY TAKING MAGNESIUM 250 MG TABLET ORALLY DAILY, NOTES: 400MG TAKING ESOMEPRAZOLE MAGNESIUM 40 MG CAPSULE DELAYED RELEASE 1 CAPSULE ORALLY ONCE A DAY TAKING MULTIVITAMIN ADULTS 50+ - TABLET DIRECTED ORALLY TAKING COMBIVENT RESPIMAT 20-100 MCG/ACT AEROSOL 1 PUFF INHALATION FOUR TIMES DAILY TAKING VITAMIN D TAKING ANORO ELLIPTA 62.5-25 MCG/INH AEROSOL POWDER BREATH ACTIVATED 1 PUFF INHALATION ONCE A DAY TAKING PROAIR HFA 108 (90 BASE) MCG/ACT AEROSOL SOLUTION 2 PUFFS NEEDED INHALATION EVERY 4 HRS TAKING FENOFIBRATE 145 TABLET 1 TABLET ORALLY ONCE A DAY NOT-TAKING ACAMPROSATE CALCIUM 333 MG TABLET DELAYED RELEASE 2 TABLETS ORALLY THREE TIMES A DAY NOT-TAKING TAMSULOSIN HCL 0.4 MG CAPSULE 1 CAPSULE ORALLY ONCE A DAY NOT-TAKING SPIRIVA HANDIHALER 18 MCG CAPSULE 1 CAPSULE INHALATION ONCE A DAY, NOTES: NOT SURE NOT-TAKING DEPAKOTE 500 MG TABLET DELAYED RELEASE 1 TABLET ORALLY TID NOT-TAKING SODIUM CHLORIDE 1 GM TABLET DIRECTED ORALLY BID NOT-TAKING FAMOTIDINE 40 MG TABLET 1 TABLET AT BEDTIME ORALLY ONCE A DAY NOT-TAKING CIPRO 500 MG TABLET 1 TABLET ORALLY EVERY 12 HRS NOT-TAKING SYMBICORT 160-4.5 MCG/ACT AEROSOL 2 PUFFS INHALATION TWICE A DAY NOT-TAKING LEVAQUIN 500 MG TABLET 1 TABLET ORALLY ONCE A DAY, NOTES: ONE DAY LEFT NOT-TAKING KEFLEX 500 MG CAPSULE 1 CAPSULE ORALLY EVERY 12 HRS, NOTES: FINISHED THIS AM NOT-TAKING CIALIS 20 MG TABLET 1 TABLET ORALLY NEEDED 1 HOUR PRIOR TO SEXUAL ACTIVITY UNKNOWN HYDROCHLOROTHIAZIDE 25 25 MG TABLET 1 TABLET ORAL ONCE PER DAY MEDICATION LIST REVIEWED AND RECONCILED WITH THE PATIENT PAST MEDICAL HISTORY BIPOLAR DISORDER HTN HIGH COLESTEROL COPD GERD DDD HX OF URINARY RETENTION MODERNA COVID-19 1ST: 11/17/2020 2ND: 12/15/2020 PNEUMOVAX 10/01/2020 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 CHRONIC BACK PAIN ALCOHOLISM HYPERLIPIDEMIA HYPERTENSIVE DISORDER DEPRESSION 7 FALLS THIS YEAR, HAD SOME BRUISE AND DID GO TO THE ER FOR A COUPLE OF THEM, NO MAJOR INJURIES ALLERGIES TRAMADOL HCL: NAUSEA/VOMITING - SIDE EFFECTS CHANTIX: NAUSEA/VOMITING - SIDE EFFECTS SEASONAL ALLERGIES: CAUSES WATERY & ITCHY EYES - ALLERGY SOCIAL HISTORY GENERAL: TOBACCO USE ARE YOU A:CURRENT SMOKER ARE YOU INTERESTED IN QUITTING?NOT READY TO QUIT COUNSELED THE PATIENT ON SMOKING EFFECTS, EDUCATION [id number]/30/2021 HOW MANY CIGARETTES A DAY DO YOU SMOKE?6-10 HOW SOON AFTER YOU WAKE UP DO YOU SMOKE YOUR FIRST CIGARETTE?WITHIN 5 MIN HOW OFTEN DO YOU SMOKE CIGARETTES?EVERY DAY PATIENT COUNSELED ON THE DANGERS OF TOBACCO USE AND URGED TO QUIT:04/22/2021 LATEX QUESTIONNAIRE LATEX ALLERGY : HAVE YOU EVER DEVELOPED ANY TYPE OF REACTION AFTER HANDLING LATEX PRODUCTS SUCH RUBBER GLOVES, CONDOMS, DIAPHRAGMS, BALLOONS, SOCKS, OR UNDERWEAR?NO LATEX ALLERGY : HAVE YOU EVER DEVELOPED ANY TYPE OF REACTION DURING OR AFTER DENTAL APPOINTMENT, VAGINAL/RECTAL EXAMINATION, SURGICAL PROCEDURE, OR ANY OTHER EXPOSURE?NO LATEX RISK : HAVE YOU EVER HAD ANY DIFFICULTY BREATHING OR HIVES AFTER EATING OR HANDLING ANY FRUITS, OR VEGETABLES; SUCH KIWI, BANANAS, STONE FRUITS, OR CHESTNUTSNO LATEX RISK : DO YOU HAVE A PREVIOUS PERSONAL HISTORY OF MORE THAN NINE SURGERIES, SPINA BIFIDA, OR REPEATED CATHERIZATIONS? NO LATEX RISK : ARE YOU FREQUENTLY EXPOSED TO LATEX PRODUCTS IN YOUR OCCUPATION?NO DATE ASKED : 04/22/2021 ALCOHOL USE: YES. ALCOHOL SCREENING POINTS: 7, INTERPRETATION: POSITIVE. RECREATIONAL DRUG USE ACCEDES OCCASIONAL MARAJUANA. CAFFEINE CAFFEINE USE?YES HOW OFTEN AND HOW MUCH? 2/DAY CUPS COFFEE SEXUAL HX HAD SEX IN THE LAST 12 MONTHS (VAGINAL, ORAL, OR ANAL)?: YES, WITH: WOMEN ONLY, USE PROTECTION?: NO, PREVENTION STRATEGIES DISCUSSED:: OTHER, HAVE YOU EVER HAD AN STD?: NO. SIKHISM NO SPIRITISM BELIEFS THAT WOULD IMPACT HEALTH CARE. LANGUAGE TONGAN. 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 OCCUPATION: DISABLED. DIET: REGULAR. EXERCISE: WALKS. MARITAL STATUS: . OTHERS AT HOME: SEPERATED. REVIEW OF SYSTEMS CONSTITUTIONAL: ANY RECENT FEVER NO . CHILLS NO . WEIGHT CHANGE OF UNKNOWN REASONS NO . GASTROENTEROLOGY: NEW UNEXPLAINABLE CHANGES IN BOWEL CONTROL NO . CONSTIPATION NO . GENITOURINARY: ANY NEW CHANGE IN BLADDER CONTROL? NO . NEUROLOGY: NEW ONSET DIZZINESS OR NEUROLOGICAL CHANGES NOT MENTIONED NO . NEW NUMBNESS OR PAIN PATTERNS NOT MENTIONED AND PERTINENT TO TODAY'S VISIT NO . CARDIOLOGY: NEW CHEST PRESSURE NO . PATIENT DENIES NO . RESPIRATORY: UNEXPLAINABLE COUGH NO . NEW SHORTNESS OF BREATH NO . VITAL SIGNS WT 220 LBS, WT-KG 99.79 KG, HT 74 IN, BMI 28.24 INDEX, BP 139/81 MM HG, HR 119 /MIN, RR 18 /MIN, TEMP 98.7 F, OXYGEN SAT % 98%, SAFE IN ENV? (Y/N) YES, NA INITIALS AW 1012, REVIEWED BY: LAURA. EXAMINATION GENERAL: THE PATIENT IS ALERT, ORIENTED TIMES THREE AND COOPERATIVE. LUNGS ARE CLEAR TO AUSCULTATION. HEART SHOWS REGULAR RHYTHM, NO MURMURS AND NO GALLOPS. TENDERENSS IN THE LOWER BACK IN THE FACET JOINTS ON THE RIGHT AND LEFT SIDE. 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 OTHERS CLINICAL NOTES: PAT COMPLETED 05/02/21 Juan Miguel ALLRED RN I DISCUSSED ALTERNATIVES WITH MR. BRAR. WE AGREE ON DOING A BILATERAL DIAGNOSTIC FACET BLOCK L3-L4, L4-L5, L5-S1 #1. DEPENDING ON THE RESULTS, WE WILL TAKE IT FROM THERE. THE PATIENT REPORTS UNDERSTANDING AND AGREES WITH TE PLAN. I, BALTAZAR CUETO, DOCUMENTED THE ABOVE INFORMATION ACTING A SCRIBE FOR DR. VASQUEZ. I HAVE REVIEWED THE ABOVE DOCUMENT, WRITTEN BY BALTAZAR CUETO, ENVELOPE ADJUSTER, AND I VERIFY THAT IT IS ACCURATE. PROCEDURES PAIN NURSING RECORD PROCEDURE IN ROOM 1125, PHYSICIAN IN ROOM 1127, START 1132, FINISH 1145, PHYSICIAN OUT OF ROOM 1145, OUT OF ROOM 1150, ECG NORMAL SINUS, PATIENT SHIELDED N/A, SAFETY STRAP YES, PREP BETADINE, DRESSING TEGADERM DR. VASQUEZ LOC: 1. ALERT, ORIENTED, [facility] 05/03/2021 11:33:40 AM > RESP: 1. REGULAR, NO DYSPNEA, [facility] 05/03/2021 11:33:44 AM > COLOR: 1. PINKODILIA,[facility] 05/03/2021 11:33:49 AM > SKIN: 1. WARM, DRY, ODILIA[facility] 05/03/2021 11:33:55 AM > POSITION: 1. PRONEODILIA,[facility] 05/03/2021 11:34:00 AM > VITALS: 1130 - HR99, 98%, 153/96, R14 TBRADLEYRN 1145 - HR 98, 98%, 155/97, R14 TBRADLEYRN 1210 - HR 95, 97% 13/86, R14 TBRADLEYRN COMPLETION OF PROCEDURE APPOINTMENT: POST PAIN 0, DRESSING SITE DRY AND INTACT, IV DISCONTINUED, SITE CLEAR, CATHETER INTACT, GAIT WHEELCHAIR, TEACHING COMPLETED, PATIENT ACKNOWLEDGES UNDERSTANDING YES, PROCEDURE APPOINTMENT COMPLETED AT 1210 PN LUMBAR FACET BLOCK DIAGNOSTIC PRE PROCEDURE DIAGNOSIS LUMBAR SPONDYLOSIS, LUMBOSACRAL SPONDYLOSIS POST PROCEDURE DIAGNOSIS LUMBAR SPONDYLOSIS, LUMBOSACRAL SPONDYLOSIS PROCEDURE BILATERAL L4-L5 AND BILATERAL L5-S1 FACET BLOCK DIAGNOSTIC NUMBER [address] ANTHONY VASQUEZ PERFORMANCE TESTER NONE ANESTHESIA LOCAL PRE PROCEDURE NOTE THE PATIENT WITH HISTORY OF CHRONIC LOW BACK PAIN. I EVALUATED THE PATIENT AND REVIEWED THE CHART. I WENT OVER THE RISKS, ALTERNATIVES, AND BENEFITS ASSOCIATED WITH THIS PROCEDURE. THE PATIENT WOULD LIKE TO PROCEED AND GAVE CONSENT TO PERFORM THE PROCEDURE. AGREED WITH THE PATIENT, WE ARE DOING THIS PROCEDURE TO DETERMINE IF THE PATIENT IS A CANDIDATE FOR A RADIOFREQUENCY ABLATION OF THE FACETS JOINTS. THE PATIENT DENIES UNEXPLAINABLE WEIGHT LOSS, FEVER, CHILLS, OR NEW CHANGES IN URINARY OR BOWEL CONTROL. THE PATIENT IS COVID-19 NEGATIVE DESCRIPTION OF PROCEDURE THE PATIENT WAS BROUGHT TO THE PROCEDURE ROOM AND PLACED IN THE PRONE POSITION. THE LUMBOSACRAL AREA WAS CLEANED WITH CHLORAPREP SOLUTION AND DRAPED ASEPTICALLY. THE PROCEDURE WAS DONE UNDER STERILE CONDITIONS. A TIMEOUT WAS PERFORMED WHERE THE CONSENTED SITE WAS VERIFIED WITH EVERYONE IN THE ROOM. UNDER FLUOROSCOPIC GUIDANCE, TARGETS WERE SELECTED AT THE INTERSECTION OF THE RIGHT AND LEFT TRANSVERSE PROCESS OF L4, L5 AND ALA OF S1 WITH ITS RESPECTIVE SUPERIOR ARTICULAR PROCESS WITH A TARGET OF THE MEDIAN BRANCHES OF L3, L4 AND THE DORSAL RAMI OF L5. I CONFIRMED AGAIN THE SITE OF TARGET. LIDOCAINE WAS USED TO NUMB THE SKIN AND THE SUBCUTANEOUS TISSUE BELOW IT. SPINAL NEEDLE, 22-GAUGE, WAS ADVANCED UNDER FLUOROSCOPIC GUIDANCE AND FOLLOWING PATIENT FEEDBACK UNTIL THE TARGETS WERE REACHED. POSITION OF THE NEEDLES WAS VERIFIED WITH AP AND LATERAL VIEWS. AFTER PROPER POSITION OF THE NEEDLES WAS ACHIEVED, ISOVUE-M DYE 30%, 0.1 ML, WAS INJECTED AT EACH SITE SHOWING ADEQUATE SPREAD OF THE DYE. THEN, A SOLUTION OF 0.4 ML OF BUPIVACAINE 0.25% WAS INJECTED AT EACH SITE. THE MEDICATIONS WERE VERIFIED WITH THE NURSE. THERE WAS NO EVIDENCE OF BLOOD, PARESTHESIA OR CEREBROSPINAL FLUID DURING THE PROCEDURE. THE PATIENT WAS SENT TO THE RECOVERY ROOM. THE PATIENT WAS MOVING THE EXTREMITIES AND DOING WELL. THERE WERE NO COMPLICATIONS DURING THE PROCEDURE. ESTIMATED BLOOD LOSS WAS LESS THAN 5 ML. FLUOROSCOPY TIME WAS 36 SECONDS POST PROCEDURE NOTE THE PATIENT WILL DOCUMENT THE PAIN LEVEL AND RESPONSE TO THIS PROCEDURE PER PAIN DIARY. THE PATIENT WILL BE SEEN IN A FOLLOW UP IN THE NEXT FEW WEEKS. FURTHER DETERMINATION FOR THE PATIENT'S CASE WILL BE DONE AT THE NEXT VISIT. INSTRUCTIONS WERE GIVEN, QUESTIONS WERE ANSWERED, AND THE PATIENT EXPRESSED UNDERSTANDING AND AGREED WITH THE PLAN. I, BALTAZAR CUETO, DOCUMENTED THE ABOVE INFORMATION ACTING A SCRIBE FOR DR. VASQUEZ. I HAVE REVIEWED THE ABOVE DOCUMENT, WRITTEN BY BALTAZAR CUETO, ENVELOPE ADJUSTER, AND I VERIFY THAT IT IS ACCURATE DIAGNOSTIC IMAGING [facility] FLUORO GUIDE SPINE INJECTION (PAIN)[id number] VISIT CODES PROCEDURE CODES 55736 INJ PARAVERT F JNT L/S 1 LEV, MODIFIERS: 50 [id number] INJ PARAVERT F JNT L/S 2 LEV, MODIFIERS: 50 DISPOSITION & COMMUNICATION FOLLOW UP FOLLOW UP WITH CLINICAL SUPPORT TECH (REASON: POST BILATERAL DIAGNOSTIC LUMBAR FACET BLOCK L4-L5, L5-S1 #1) ELECTRONICALLY SIGNED BY ANTHONY VASQUEZ MD, ON 05/06/2021 AT 02:06 PM EDT DISCLAIMER : THIS IS A VISIT SUMMARY EXTRACTED FROM THE [employer] CHART. IT IS NOT A COPY OF THE [employer] PROGRESS NOTE. MTDD
--- NOTE | 2021-05-07 01:14 | ECWPNPC ---
PATIENT NAME: JULIEN BRAR : 1955 GENDER: MALE VISIT DATE: 05/03/2021 DISCHARGE DATE: 05/03/21 1208 VISIT LOCKED DATE TIME: PHYSICIAN: ANTHONY VASQUEZ MD RESOURCE: ANTHONY VASQUEZ MD REASON FOR APPOINTMENT 1. BILATERAL DIAGNOSTIC LUMBAR FACET BLOCK L3-L4, L4-5, L5-S1 #1 HISTORY OF PRESENT ILLNESS GENERAL: 65-YEAR-OLD MALE PATIENT WITH A HISTORY OF CHRONIC LOW BACK PAIN. THE PATIENT DESCRIBES THE PAIN CONSTANT AND STEADY WITH A PAIN SCORE RANGING FROM 5-10/10. THE PAIN INCREASES WITH ACTIVITES. HE HAS PROBLEMS STANDING. FALL RISK SCREENING: SCREENING 8 FALLS IN THE LAST YEAR- WITHOUT INJURY. PAIN SCREENING: PATIENT HAS A COMPLAINT OF ACUTE OR CHRONIC PAIN :YES LOCATION OF PAIN:LOW BACK INTENSITY OF PAIN (SCALE OF 1 TO 10):7 WHAT DOES YOUR PAIN FEEL LIKE:ACHING DULL DURATION:CONTINOUS, CONSTANT, STEADY, ALL DAY PAIN IS INCREASED BY:PROLONGED STANDING PAIN IS DECREASED BY:OTHERS LAY ON SIDE NURSING NOTE: -. PAIN CENTER INTAKE QUESTIONS: DO YOU HAVE A HISTORY OF MRSA? :NO DO YOU TAKE A BLOOD THINNERS? :NO DO YOU HAVE ANY BLEEDING DISORDERS? :NO ANY NEW NUMBNESS OR WEAKNESS IN YOUR LEGS OR ARMS? :NO OCCASIONAL ANY PACEMAKER,DEFIBRILLATOR, OR DORSAL COLUMN STIMULATOR? :NO DO YOU HAVE ANY RASHES OR OPEN SORES? :NO ARE YOU ALLERGIC TO IV DYE? :NO ARE YOU DIABETIC? :NO ANY NEW PROBLEMS WITH YOUR MEDICATIONS? :NO HAVE YOU RECEIVED A VACCINE IN THE PAST 30 DAYS? :NO DO YOU PLAN TO RECEIVE A VACCINE IN THE NEXT 21 DAYS? :NO DO YOU TAKE ANY IMMUNOSUPPRESSIVE MEDICATIONS? :NO ANY HISTORY OF SEIZURES? :NO ANY HISTORY OF CARDIAC ISSUES OR EVENTS? :NO DO YOU HAVE ANY KIDNEY OR LIVER DISEASE? :NO DO YOU HAVE SLEEP APNEA? :NO ANY RECENT HEAD INJURY? :NO DO YOU HAVE ANY NEW INFECTIONS? :NO IS THERE A CHANCE YOU COULD BE ? :NO ARE YOU BREAST FEEDING? :NO WHEN DID YOU LAST EAT? : - WHEN DID YOU LAST DRINK? : - WHAT DID YOU LAST DRINK? : - NAME OF PERSON DRIVING YOU HOME? : TRANSIT DO YOU HAVE ANY OTHER QUESTIONS OR CONCERNS? : - CURRENT MEDICATIONS TAKING TIZANIDINE HCL 4 MG TABLET 1 TABLET NEEDED ORALLY THREE TIMES A DAY TAKING LAMOTRIGINE 25 MG TABLET 1 TABLET ORALLY TAKING SILDENAFIL CITRATE 20 MG TABLET 1 TABLET ORALLY ONCE A DAY TAKING DIVALPROEX SODIUM 500 MG TABLET DELAYED RELEASE 1 TABLET ORALLY THREE A DAY TAKING AMLODIPINE BESYLATE 10 MG TABLET 1 TABLET ORALLY ONCE A DAY TAKING TRAZODONE 100 100MG TABLET 1 TABLET ORAL ONCE PER DAY, NOTES: 50MG AT HS TAKING PRAVASTATIN 80 80MG TABLET 1 TABLET ORAL ONCE PER DAY TAKING LISINOPRIL 40 40 MG TABLET 1 TABLET ORAL ONCE PER DAY TAKING MAGNESIUM 250 MG TABLET ORALLY DAILY, NOTES: 400MG TAKING ESOMEPRAZOLE MAGNESIUM 40 MG CAPSULE DELAYED RELEASE 1 CAPSULE ORALLY ONCE A DAY TAKING MULTIVITAMIN ADULTS 50+ - TABLET DIRECTED ORALLY TAKING COMBIVENT RESPIMAT 20-100 MCG/ACT AEROSOL 1 PUFF INHALATION FOUR TIMES DAILY TAKING VITAMIN D TAKING ANORO ELLIPTA 62.5-25 MCG/INH AEROSOL POWDER BREATH ACTIVATED 1 PUFF INHALATION ONCE A DAY TAKING PROAIR HFA 108 (90 BASE) MCG/ACT AEROSOL SOLUTION 2 PUFFS NEEDED INHALATION EVERY 4 HRS TAKING FENOFIBRATE 145 TABLET 1 TABLET ORALLY ONCE A DAY NOT-TAKING ACAMPROSATE CALCIUM 333 MG TABLET DELAYED RELEASE 2 TABLETS ORALLY THREE TIMES A DAY NOT-TAKING TAMSULOSIN HCL 0.4 MG CAPSULE 1 CAPSULE ORALLY ONCE A DAY NOT-TAKING SPIRIVA HANDIHALER 18 MCG CAPSULE 1 CAPSULE INHALATION ONCE A DAY, NOTES: NOT SURE NOT-TAKING DEPAKOTE 500 MG TABLET DELAYED RELEASE 1 TABLET ORALLY TID NOT-TAKING SODIUM CHLORIDE 1 GM TABLET DIRECTED ORALLY BID NOT-TAKING FAMOTIDINE 40 MG TABLET 1 TABLET AT BEDTIME ORALLY ONCE A DAY NOT-TAKING CIPRO 500 MG TABLET 1 TABLET ORALLY EVERY 12 HRS NOT-TAKING SYMBICORT 160-4.5 MCG/ACT AEROSOL 2 PUFFS INHALATION TWICE A DAY NOT-TAKING LEVAQUIN 500 MG TABLET 1 TABLET ORALLY ONCE A DAY, NOTES: ONE DAY LEFT NOT-TAKING KEFLEX 500 MG CAPSULE 1 CAPSULE ORALLY EVERY 12 HRS, NOTES: FINISHED THIS AM NOT-TAKING CIALIS 20 MG TABLET 1 TABLET ORALLY NEEDED 1 HOUR PRIOR TO SEXUAL ACTIVITY UNKNOWN HYDROCHLOROTHIAZIDE 25 25 MG TABLET 1 TABLET ORAL ONCE PER DAY MEDICATION LIST REVIEWED AND RECONCILED WITH THE PATIENT PAST MEDICAL HISTORY BIPOLAR DISORDER HTN HIGH COLESTEROL COPD GERD DDD HX OF URINARY RETENTION MODERNA COVID-19 1ST: 11/17/2020 2ND: 12/15/2020 PNEUMOVAX 10/01/2020 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 CHRONIC BACK PAIN ALCOHOLISM HYPERLIPIDEMIA HYPERTENSIVE DISORDER DEPRESSION 7 FALLS THIS YEAR, HAD SOME BRUISE AND DID GO TO THE ER FOR A COUPLE OF THEM, NO MAJOR INJURIES ALLERGIES TRAMADOL HCL: NAUSEA/VOMITING - SIDE EFFECTS CHANTIX: NAUSEA/VOMITING - SIDE EFFECTS SEASONAL ALLERGIES: CAUSES WATERY & ITCHY EYES - ALLERGY SOCIAL HISTORY GENERAL: TOBACCO USE ARE YOU A:CURRENT SMOKER ARE YOU INTERESTED IN QUITTING?NOT READY TO QUIT COUNSELED THE PATIENT ON SMOKING EFFECTS, EDUCATION [id number]/30/2021 HOW MANY CIGARETTES A DAY DO YOU SMOKE?6-10 HOW SOON AFTER YOU WAKE UP DO YOU SMOKE YOUR FIRST CIGARETTE?WITHIN 5 MIN HOW OFTEN DO YOU SMOKE CIGARETTES?EVERY DAY PATIENT COUNSELED ON THE DANGERS OF TOBACCO USE AND URGED TO QUIT:04/22/2021 LATEX QUESTIONNAIRE LATEX ALLERGY : HAVE YOU EVER DEVELOPED ANY TYPE OF REACTION AFTER HANDLING LATEX PRODUCTS SUCH RUBBER GLOVES, CONDOMS, DIAPHRAGMS, BALLOONS, SOCKS, OR UNDERWEAR?NO LATEX ALLERGY : HAVE YOU EVER DEVELOPED ANY TYPE OF REACTION DURING OR AFTER DENTAL APPOINTMENT, VAGINAL/RECTAL EXAMINATION, SURGICAL PROCEDURE, OR ANY OTHER EXPOSURE?NO LATEX RISK : HAVE YOU EVER HAD ANY DIFFICULTY BREATHING OR HIVES AFTER EATING OR HANDLING ANY FRUITS, OR VEGETABLES; SUCH KIWI, BANANAS, STONE FRUITS, OR CHESTNUTSNO LATEX RISK : DO YOU HAVE A PREVIOUS PERSONAL HISTORY OF MORE THAN NINE SURGERIES, SPINA BIFIDA, OR REPEATED CATHERIZATIONS? NO LATEX RISK : ARE YOU FREQUENTLY EXPOSED TO LATEX PRODUCTS IN YOUR OCCUPATION?NO DATE ASKED : 04/22/2021 ALCOHOL USE: YES. ALCOHOL SCREENING POINTS: 7, INTERPRETATION: POSITIVE. RECREATIONAL DRUG USE ACCEDES OCCASIONAL MARAJUANA. CAFFEINE CAFFEINE USE?YES HOW OFTEN AND HOW MUCH? 2/DAY CUPS COFFEE SEXUAL HX HAD SEX IN THE LAST 12 MONTHS (VAGINAL, ORAL, OR ANAL)?: YES, WITH: WOMEN ONLY, USE PROTECTION?: NO, PREVENTION STRATEGIES DISCUSSED:: OTHER, HAVE YOU EVER HAD AN STD?: NO. SCIENTOLOGY NO MANDAEN BELIEFS THAT WOULD IMPACT HEALTH CARE. LANGUAGE CITIZ[place] OF [place]. 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 OCCUPATION: DISABLED. DIET: REGULAR. EXERCISE: WALKS. MARITAL STATUS: . OTHERS AT HOME: SEPERATED. REVIEW OF SYSTEMS CONSTITUTIONAL: ANY RECENT FEVER NO . CHILLS NO . WEIGHT CHANGE OF UNKNOWN REASONS NO . GASTROENTEROLOGY: NEW UNEXPLAINABLE CHANGES IN BOWEL CONTROL NO . CONSTIPATION NO . GENITOURINARY: ANY NEW CHANGE IN BLADDER CONTROL? NO . NEUROLOGY: NEW ONSET DIZZINESS OR NEUROLOGICAL CHANGES NOT MENTIONED NO . NEW NUMBNESS OR PAIN PATTERNS NOT MENTIONED AND PERTINENT TO TODAY'S VISIT NO . CARDIOLOGY: NEW CHEST PRESSURE NO . PATIENT DENIES NO . RESPIRATORY: UNEXPLAINABLE COUGH NO . NEW SHORTNESS OF BREATH NO . VITAL SIGNS WT 220 LBS, WT-KG 99.79 KG, HT 74 IN, BMI 28.24 INDEX, BP 139/81 MM HG, HR 119 /MIN, RR 18 /MIN, TEMP 98.7 F, OXYGEN SAT % 98%, SAFE IN ENV? (Y/N) YES, NA INITIALS AW 1012, REVIEWED BY: LAURA. EXAMINATION GENERAL: THE PATIENT IS ALERT, ORIENTED TIMES THREE AND COOPERATIVE. LUNGS ARE CLEAR TO AUSCULTATION. HEART SHOWS REGULAR RHYTHM, NO MURMURS AND NO GALLOPS. TENDERENSS IN THE LOWER BACK IN THE FACET JOINTS ON THE RIGHT AND LEFT SIDE. ASSESSMENTS SPONDYLOSIS WITHOUT MYELOPATHY OR RADICULOPATHY, LUMBAR REGION - M47.816 (PRIMARY) LUMBAR FACET ARTHROPATHY - M47.816 TREATMENT SPONDYLOSIS WITHOUT MYELOPATHY OR RADICULOPATHY, LUMBAR REGION COMPLETION OF PROCEDURAL VISIT WHEN MEETS [id number],TOM 05/03/2021 12:18:15 PM > CRITERIA MET SALINE [id number],TOM 05/03/2021 11:56:11 AM > 20G IV ACCESS OBTAINED BY SASHA ISIDRO RN @1100 SUSANNE HARTLEY 05/03/2021 11:57:08 AM > RAC NOTES: PATIENT REPORTED PAIN PRIOR TO PROCEDURE 05/03, POST PROCEDURE LAURA. OTHERS CLINICAL NOTES: PAT COMPLETED 05/02/21 Juan Miguel ALLRED RN I DISCUSSED ALTERNATIVES WITH MR. BRAR. WE AGREE ON DOING A BILATERAL DIAGNOSTIC FACET BLOCK L3-L4, L4-L5, L5-S1 #1. DEPENDING ON THE RESULTS, WE WILL TAKE IT FROM THERE. THE PATIENT REPORTS UNDERSTANDING AND AGREES WITH TE PLAN. I, BALTAZAR CUETO, DOCUMENTED THE ABOVE INFORMATION ACTING A SCRIBE FOR DR. VASQUEZ. I HAVE REVIEWED THE ABOVE DOCUMENT, WRITTEN BY BALTAZAR CUETO, DRUG ABUSE TREATMENT SPECIALIST, AND I VERIFY THAT IT IS ACCURATE. PROCEDURES PAIN NURSING RECORD PROCEDURE IN ROOM 1125, PHYSICIAN IN ROOM 1127, START 1132, FINISH 1145, PHYSICIAN OUT OF ROOM 1145, OUT OF ROOM 1150, ECG NORMAL SINUS, PATIENT SHIELDED N/A, SAFETY STRAP YES, PREP BETADINE, DRESSING TEGADERM DR. VASQUEZ LOC: 1. ALERT, ORIENTED, [facility] 05/03/2021 11:33:40 AM > RESP: 1. REGULAR, NO DYSPNEA, [facility] 05/03/2021 11:33:44 AM > COLOR: 1. PINKODILIA,[facility] 05/03/2021 11:33:49 AM > SKIN: 1. WARM, DRY, [facility] 05/03/2021 11:33:55 AM > POSITION: 1. PRONEODILIA,[facility] 05/03/2021 11:34:00 AM > VITALS: 1130 - HR99, 98%, 153/96, R14 TBRADLEYRN 1145 - HR 98, 98%, 155/97, R14 TBRADLEYRN 1210 - HR 95, 97% 13/86, R14 TBRADLEYRN COMPLETION OF PROCEDURE APPOINTMENT: POST PAIN 0, DRESSING SITE DRY AND INTACT, IV DISCONTINUED, SITE CLEAR, CATHETER INTACT, GAIT WHEELCHAIR, TEACHING COMPLETED, PATIENT ACKNOWLEDGES UNDERSTANDING YES, PROCEDURE APPOINTMENT COMPLETED AT 1210 PN LUMBAR FACET BLOCK DIAGNOSTIC PRE PROCEDURE DIAGNOSIS LUMBAR SPONDYLOSIS, LUMBOSACRAL SPONDYLOSIS POST PROCEDURE DIAGNOSIS LUMBAR SPONDYLOSIS, LUMBOSACRAL SPONDYLOSIS PROCEDURE BILATERAL L4-L5 AND BILATERAL L5-S1 FACET BLOCK DIAGNOSTIC NUMBER [address] 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 I EVALUATED THE PATIENT AND REVIEWED THE CHART. I WENT OVER THE RISKS, ALTERNATIVES, AND BENEFITS ASSOCIATED WITH THIS PROCEDURE. THE PATIENT WOULD LIKE TO PROCEED AND GAVE CONSENT TO PERFORM THE PROCEDURE. AGREED WITH THE PATIENT, WE ARE DOING THIS PROCEDURE TO DETERMINE IF THE PATIENT IS A CANDIDATE FOR A RADIOFREQUENCY ABLATION OF THE FACETS JOINTS. THE PATIENT DENIES UNEXPLAINABLE WEIGHT LOSS, FEVER, CHILLS, OR NEW CHANGES IN URINARY OR BOWEL CONTROL. THE PATIENT IS COVID-19 NEGATIVE DESCRIPTION OF PROCEDURE THE PATIENT WAS BROUGHT TO THE PROCEDURE ROOM AND PLACED IN THE PRONE POSITION. THE LUMBOSACRAL AREA WAS CLEANED WITH CHLORAPREP SOLUTION AND DRAPED ASEPTICALLY. THE PROCEDURE WAS DONE UNDER STERILE CONDITIONS. A TIMEOUT WAS PERFORMED WHERE THE CONSENTED SITE WAS VERIFIED WITH EVERYONE IN THE ROOM. UNDER FLUOROSCOPIC GUIDANCE, TARGETS WERE SELECTED AT THE INTERSECTION OF THE RIGHT AND LEFT TRANSVERSE PROCESS OF L4, L5 AND ALA OF S1 WITH ITS RESPECTIVE SUPERIOR ARTICULAR PROCESS WITH A TARGET OF THE MEDIAN BRANCHES OF L3, L4 AND THE DORSAL RAMI OF L5. I CONFIRMED AGAIN THE SITE OF TARGET. LIDOCAINE WAS USED TO NUMB THE SKIN AND THE SUBCUTANEOUS TISSUE BELOW IT. SPINAL NEEDLE, 22-GAUGE, WAS ADVANCED UNDER FLUOROSCOPIC GUIDANCE AND FOLLOWING PATIENT FEEDBACK UNTIL THE TARGETS WERE REACHED. POSITION OF THE NEEDLES WAS VERIFIED WITH AP AND LATERAL VIEWS. AFTER PROPER POSITION OF THE NEEDLES WAS ACHIEVED, ISOVUE-M DYE 30%, 0.1 ML, WAS INJECTED AT EACH SITE SHOWING ADEQUATE SPREAD OF THE DYE. THEN, A SOLUTION OF 0.4 ML OF BUPIVACAINE 0.25% WAS INJECTED AT EACH SITE. THE MEDICATIONS WERE VERIFIED WITH THE NURSE. THERE WAS NO EVIDENCE OF BLOOD, PARESTHESIA OR CEREBROSPINAL FLUID DURING THE PROCEDURE. THE PATIENT WAS SENT TO THE RECOVERY ROOM. THE PATIENT WAS MOVING THE EXTREMITIES AND DOING WELL. THERE WERE NO COMPLICATIONS DURING THE PROCEDURE. ESTIMATED BLOOD LOSS WAS LESS THAN 5 ML. FLUOROSCOPY TIME WAS 36 SECONDS POST PROCEDURE NOTE THE PATIENT WILL DOCUMENT THE PAIN LEVEL AND RESPONSE TO THIS PROCEDURE PER PAIN DIARY. THE PATIENT WILL BE SEEN IN A FOLLOW UP IN THE NEXT FEW WEEKS. FURTHER DETERMINATION FOR THE PATIENT'S CASE WILL BE DONE AT THE NEXT VISIT. INSTRUCTIONS WERE GIVEN, QUESTIONS WERE ANSWERED, AND THE PATIENT EXPRESSED UNDERSTANDING AND AGREED WITH THE PLAN. I, BALTAZAR CUETO, DOCUMENTED THE ABOVE INFORMATION ACTING A SCRIBE FOR DR. VASQUEZ. I HAVE REVIEWED THE ABOVE DOCUMENT, WRITTEN BY BALTAZAR CUETO, DRUG ABUSE TREATMENT SPECIALIST, AND I VERIFY THAT IT IS ACCURATE DIAGNOSTIC IMAGING [facility] FLUORO GUIDE SPINE INJECTION (PAIN)[id number] VISIT CODES PROCEDURE CODES 52324 INJ PARAVERT F JNT L/S 1 LEV, MODIFIERS: 50 [id number] INJ PARAVERT F JNT L/S 2 LEV, MODIFIERS: 50 DISPOSITION & COMMUNICATION FOLLOW UP FOLLOW UP WITH PHYSIOTHERAPY PRACTICE MANAGER (REASON: POST BILATERAL DIAGNOSTIC LUMBAR FACET BLOCK L4-L5, L5-S1 #1) ELECTRONICALLY SIGNED BY ANTHONY VASQUEZ MD, ON 05/06/2021 AT 02:06 PM EDT DISCLAIMER : THIS IS A VISIT SUMMARY EXTRACTED FROM THE [employer] CHART. IT IS NOT A COPY OF THE [employer] PROGRESS NOTE. MTDD
--- NOTE | 2021-05-07 01:17 | ECWPNPC ---
PATIENT NAME: JULIEN BRAR : 1955 GENDER: MALE VISIT DATE: 05/03/2021 DISCHARGE DATE: 05/03/21 1208 VISIT LOCKED DATE TIME: PHYSICIAN: ANTHONY VASQUEZ MD RESOURCE: ANTHONY VASQUEZ MD REASON FOR APPOINTMENT 1. BILATERAL DIAGNOSTIC LUMBAR FACET BLOCK L3-L4, L4-5, L5-S1 #1 HISTORY OF PRESENT ILLNESS GENERAL: 65-YEAR-OLD MALE PATIENT WITH A HISTORY OF CHRONIC LOW BACK PAIN. THE PATIENT DESCRIBES THE PAIN CONSTANT AND STEADY WITH A PAIN SCORE RANGING FROM 5-10/10. THE PAIN INCREASES WITH ACTIVITES. HE HAS PROBLEMS STANDING. FALL RISK SCREENING: SCREENING 8 FALLS IN THE LAST YEAR- WITHOUT INJURY. PAIN SCREENING: PATIENT HAS A COMPLAINT OF ACUTE OR CHRONIC PAIN :YES LOCATION OF PAIN:LOW BACK INTENSITY OF PAIN (SCALE OF 1 TO 10):7 WHAT DOES YOUR PAIN FEEL LIKE:ACHING DULL DURATION:CONTINOUS, CONSTANT, STEADY, ALL DAY PAIN IS INCREASED BY:PROLONGED STANDING PAIN IS DECREASED BY:OTHERS LAY ON SIDE NURSING NOTE: -. PAIN CENTER INTAKE QUESTIONS: DO YOU HAVE A HISTORY OF MRSA? :NO DO YOU TAKE A BLOOD THINNERS? :NO DO YOU HAVE ANY BLEEDING DISORDERS? :NO ANY NEW NUMBNESS OR WEAKNESS IN YOUR LEGS OR ARMS? :NO OCCASIONAL ANY PACEMAKER,DEFIBRILLATOR, OR DORSAL COLUMN STIMULATOR? :NO DO YOU HAVE ANY RASHES OR OPEN SORES? :NO ARE YOU ALLERGIC TO IV DYE? :NO ARE YOU DIABETIC? :NO ANY NEW PROBLEMS WITH YOUR MEDICATIONS? :NO HAVE YOU RECEIVED A VACCINE IN THE PAST 30 DAYS? :NO DO YOU PLAN TO RECEIVE A VACCINE IN THE NEXT 21 DAYS? :NO DO YOU TAKE ANY IMMUNOSUPPRESSIVE MEDICATIONS? :NO ANY HISTORY OF SEIZURES? :NO ANY HISTORY OF CARDIAC ISSUES OR EVENTS? :NO DO YOU HAVE ANY KIDNEY OR LIVER DISEASE? :NO DO YOU HAVE SLEEP APNEA? :NO ANY RECENT HEAD INJURY? :NO DO YOU HAVE ANY NEW INFECTIONS? :NO IS THERE A CHANCE YOU COULD BE ? :NO ARE YOU BREAST FEEDING? :NO WHEN DID YOU LAST EAT? : - WHEN DID YOU LAST DRINK? : - WHAT DID YOU LAST DRINK? : - NAME OF PERSON DRIVING YOU HOME? : TRANSIT DO YOU HAVE ANY OTHER QUESTIONS OR CONCERNS? : - CURRENT MEDICATIONS TAKING TIZANIDINE HCL 4 MG TABLET 1 TABLET NEEDED ORALLY THREE TIMES A DAY TAKING LAMOTRIGINE 25 MG TABLET 1 TABLET ORALLY TAKING SILDENAFIL CITRATE 20 MG TABLET 1 TABLET ORALLY ONCE A DAY TAKING DIVALPROEX SODIUM 500 MG TABLET DELAYED RELEASE 1 TABLET ORALLY THREE A DAY TAKING AMLODIPINE BESYLATE 10 MG TABLET 1 TABLET ORALLY ONCE A DAY TAKING TRAZODONE 100 100MG TABLET 1 TABLET ORAL ONCE PER DAY, NOTES: 50MG AT HS TAKING PRAVASTATIN 80 80MG TABLET 1 TABLET ORAL ONCE PER DAY TAKING LISINOPRIL 40 40 MG TABLET 1 TABLET ORAL ONCE PER DAY TAKING MAGNESIUM 250 MG TABLET ORALLY DAILY, NOTES: 400MG TAKING ESOMEPRAZOLE MAGNESIUM 40 MG CAPSULE DELAYED RELEASE 1 CAPSULE ORALLY ONCE A DAY TAKING MULTIVITAMIN ADULTS 50+ - TABLET DIRECTED ORALLY TAKING COMBIVENT RESPIMAT 20-100 MCG/ACT AEROSOL 1 PUFF INHALATION FOUR TIMES DAILY TAKING VITAMIN D TAKING ANORO ELLIPTA 62.5-25 MCG/INH AEROSOL POWDER BREATH ACTIVATED 1 PUFF INHALATION ONCE A DAY TAKING PROAIR HFA 108 (90 BASE) MCG/ACT AEROSOL SOLUTION 2 PUFFS NEEDED INHALATION EVERY 4 HRS TAKING FENOFIBRATE 145 TABLET 1 TABLET ORALLY ONCE A DAY NOT-TAKING ACAMPROSATE CALCIUM 333 MG TABLET DELAYED RELEASE 2 TABLETS ORALLY THREE TIMES A DAY NOT-TAKING TAMSULOSIN HCL 0.4 MG CAPSULE 1 CAPSULE ORALLY ONCE A DAY NOT-TAKING SPIRIVA HANDIHALER 18 MCG CAPSULE 1 CAPSULE INHALATION ONCE A DAY, NOTES: NOT SURE NOT-TAKING DEPAKOTE 500 MG TABLET DELAYED RELEASE 1 TABLET ORALLY TID NOT-TAKING SODIUM CHLORIDE 1 GM TABLET DIRECTED ORALLY BID NOT-TAKING FAMOTIDINE 40 MG TABLET 1 TABLET AT BEDTIME ORALLY ONCE A DAY NOT-TAKING CIPRO 500 MG TABLET 1 TABLET ORALLY EVERY 12 HRS NOT-TAKING SYMBICORT 160-4.5 MCG/ACT AEROSOL 2 PUFFS INHALATION TWICE A DAY NOT-TAKING LEVAQUIN 500 MG TABLET 1 TABLET ORALLY ONCE A DAY, NOTES: ONE DAY LEFT NOT-TAKING KEFLEX 500 MG CAPSULE 1 CAPSULE ORALLY EVERY 12 HRS, NOTES: FINISHED THIS AM NOT-TAKING CIALIS 20 MG TABLET 1 TABLET ORALLY NEEDED 1 HOUR PRIOR TO SEXUAL ACTIVITY UNKNOWN HYDROCHLOROTHIAZIDE 25 25 MG TABLET 1 TABLET ORAL ONCE PER DAY MEDICATION LIST REVIEWED AND RECONCILED WITH THE PATIENT PAST MEDICAL HISTORY BIPOLAR DISORDER HTN HIGH COLESTEROL COPD GERD DDD HX OF URINARY RETENTION MODERNA COVID-19 1ST: 11/17/2020 2ND: 12/15/2020 PNEUMOVAX 10/01/2020 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 CHRONIC BACK PAIN ALCOHOLISM HYPERLIPIDEMIA HYPERTENSIVE DISORDER DEPRESSION 7 FALLS THIS YEAR, HAD SOME BRUISE AND DID GO TO THE ER FOR A COUPLE OF THEM, NO MAJOR INJURIES ALLERGIES TRAMADOL HCL: NAUSEA/VOMITING - SIDE EFFECTS CHANTIX: NAUSEA/VOMITING - SIDE EFFECTS SEASONAL ALLERGIES: CAUSES WATERY & ITCHY EYES - ALLERGY SOCIAL HISTORY GENERAL: TOBACCO USE ARE YOU A:CURRENT SMOKER ARE YOU INTERESTED IN QUITTING?NOT READY TO QUIT COUNSELED THE PATIENT ON SMOKING EFFECTS, EDUCATION [id number]/2021 HOW MANY CIGARETTES A DAY DO YOU SMOKE?6-10 HOW SOON AFTER YOU WAKE UP DO YOU SMOKE YOUR FIRST CIGARETTE?WITHIN 5 MIN HOW OFTEN DO YOU SMOKE CIGARETTES?EVERY DAY PATIENT COUNSELED ON THE DANGERS OF TOBACCO USE AND URGED TO QUIT:04/22/2021 LATEX QUESTIONNAIRE LATEX ALLERGY : HAVE YOU EVER DEVELOPED ANY TYPE OF REACTION AFTER HANDLING LATEX PRODUCTS SUCH RUBBER GLOVES, CONDOMS, DIAPHRAGMS, BALLOONS, SOCKS, OR UNDERWEAR?NO LATEX ALLERGY : HAVE YOU EVER DEVELOPED ANY TYPE OF REACTION DURING OR AFTER DENTAL APPOINTMENT, VAGINAL/RECTAL EXAMINATION, SURGICAL PROCEDURE, OR ANY OTHER EXPOSURE?NO LATEX RISK : HAVE YOU EVER HAD ANY DIFFICULTY BREATHING OR HIVES AFTER EATING OR HANDLING ANY FRUITS, OR VEGETABLES; SUCH KIWI, BANANAS, STONE FRUITS, OR CHESTNUTSNO LATEX RISK : DO YOU HAVE A PREVIOUS PERSONAL HISTORY OF MORE THAN NINE SURGERIES, SPINA BIFIDA, OR REPEATED CATHERIZATIONS? NO LATEX RISK : ARE YOU FREQUENTLY EXPOSED TO LATEX PRODUCTS IN YOUR OCCUPATION?NO DATE ASKED : 04/22/2021 ALCOHOL USE: YES. ALCOHOL SCREENING POINTS: 7, INTERPRETATION: POSITIVE. RECREATIONAL DRUG USE ACCEDES OCCASIONAL MARAJUANA. CAFFEINE CAFFEINE USE?YES HOW OFTEN AND HOW MUCH? 2/DAY CUPS COFFEE SEXUAL HX HAD SEX IN THE LAST 12 MONTHS (VAGINAL, ORAL, OR ANAL)?: YES, WITH: WOMEN ONLY, USE PROTECTION?: NO, PREVENTION STRATEGIES DISCUSSED:: OTHER, HAVE YOU EVER HAD AN STD?: NO. MORAVIAN NO ADVENTIST BELIEFS THAT WOULD IMPACT HEALTH CARE. LANGUAGE MALDIVIAN. 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 OCCUPATION: DISABLED. DIET: REGULAR. EXERCISE: WALKS. MARITAL STATUS: . OTHERS AT HOME: SEPERATED. REVIEW OF SYSTEMS CONSTITUTIONAL: ANY RECENT FEVER NO . CHILLS NO . WEIGHT CHANGE OF UNKNOWN REASONS NO . GASTROENTEROLOGY: NEW UNEXPLAINABLE CHANGES IN BOWEL CONTROL NO . CONSTIPATION NO . GENITOURINARY: ANY NEW CHANGE IN BLADDER CONTROL? NO . NEUROLOGY: NEW ONSET DIZZINESS OR NEUROLOGICAL CHANGES NOT MENTIONED NO . NEW NUMBNESS OR PAIN PATTERNS NOT MENTIONED AND PERTINENT TO TODAY'S VISIT NO . CARDIOLOGY: NEW CHEST PRESSURE NO . PATIENT DENIES NO . RESPIRATORY: UNEXPLAINABLE COUGH NO . NEW SHORTNESS OF BREATH NO . VITAL SIGNS WT 220 LBS, WT-KG 99.79 KG, HT 74 IN, BMI 28.24 INDEX, BP 139/81 MM HG, HR 119 /MIN, RR 18 /MIN, TEMP 98.7 F, OXYGEN SAT % 98%, SAFE IN ENV? (Y/N) YES, NA INITIALS AW 1012, REVIEWED BY: LAURA. EXAMINATION GENERAL: THE PATIENT IS ALERT, ORIENTED TIMES THREE AND COOPERATIVE. LUNGS ARE CLEAR TO AUSCULTATION. HEART SHOWS REGULAR RHYTHM, NO MURMURS AND NO GALLOPS. TENDERENSS IN THE LOWER BACK IN THE FACET JOINTS ON THE RIGHT AND LEFT SIDE. 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 OTHERS CLINICAL NOTES: PAT COMPLETED 05/02/21 Juan Miguel ALLRED RN I DISCUSSED ALTERNATIVES WITH MR. BRAR. WE AGREE ON DOING A BILATERAL DIAGNOSTIC FACET BLOCK L3-L4, L4-L5, L5-S1 #1. DEPENDING ON THE RESULTS, WE WILL TAKE IT FROM THERE. THE PATIENT REPORTS UNDERSTANDING AND AGREES WITH TE PLAN. I, BALTAZAR CUETO, DOCUMENTED THE ABOVE INFORMATION ACTING A SCRIBE FOR DR. VASQUEZ. I HAVE REVIEWED THE ABOVE DOCUMENT, WRITTEN BY BALTAZAR CUETO, BOX CUTTER, AND I VERIFY THAT IT IS ACCURATE. PROCEDURES PAIN NURSING RECORD PROCEDURE IN ROOM 1125, PHYSICIAN IN ROOM 1127, START 1132, FINISH 1145, PHYSICIAN OUT OF ROOM 1145, OUT OF ROOM 1150, ECG NORMAL SINUS, PATIENT SHIELDED N/A, SAFETY STRAP YES, PREP BETADINE, DRESSING TEGADERM DR. VASQUEZ LOC: 1. ALERT, ORIENTED, [facility] 05/03/2021 11:33:40 AM > RESP: 1. REGULAR, NO DYSPNEA, OD[facility]IA,[facility] 05/03/2021 11:33:44 AM > COLOR: 1. PINKODILIA,[facility] 05/03/2021 11:33:49 AM > SKIN: 1. WARM, DRY, ODILIA,[facility] 05/03/2021 11:33:55 AM > POSITION: 1. PRONEODILIA,[facility] 05/03/2021 11:34:00 AM > VITALS: 1130 - HR99, 98%, 153/96, R14 TBRADLEYRN 1145 - HR 98, 98%, 155/97, R14 TBRADLEYRN 1210 - HR 95, 97% 13/86, R14 TBRADLEYRN COMPLETION OF PROCEDURE APPOINTMENT: POST PAIN 0, DRESSING SITE DRY AND INTACT, IV DISCONTINUED, SITE CLEAR, CATHETER INTACT, GAIT WHEELCHAIR, TEACHING COMPLETED, PATIENT ACKNOWLEDGES UNDERSTANDING YES, PROCEDURE APPOINTMENT COMPLETED AT 1210 PN LUMBAR FACET BLOCK DIAGNOSTIC PRE PROCEDURE DIAGNOSIS LUMBAR SPONDYLOSIS, LUMBOSACRAL SPONDYLOSIS POST PROCEDURE DIAGNOSIS LUMBAR SPONDYLOSIS, LUMBOSACRAL SPONDYLOSIS PROCEDURE BILATERAL L4-L5 AND BILATERAL L5-S1 FACET BLOCK DIAGNOSTIC NUMBER [address] ANTHONY VASQUEZ ELECTRICAL SERVICE TECHNICIAN NONE ANESTHESIA LOCAL PRE PROCEDURE NOTE THE PATIENT WITH HISTORY OF CHRONIC LOW BACK PAIN. I EVALUATED THE PATIENT AND REVIEWED THE CHART. I WENT OVER THE RISKS, ALTERNATIVES, AND BENEFITS ASSOCIATED WITH THIS PROCEDURE. THE PATIENT WOULD LIKE TO PROCEED AND GAVE CONSENT TO PERFORM THE PROCEDURE. AGREED WITH THE PATIENT, WE ARE DOING THIS PROCEDURE TO DETERMINE IF THE PATIENT IS A CANDIDATE FOR A RADIOFREQUENCY ABLATION OF THE FACETS JOINTS. THE PATIENT DENIES UNEXPLAINABLE WEIGHT LOSS, FEVER, CHILLS, OR NEW CHANGES IN URINARY OR BOWEL CONTROL. THE PATIENT IS COVID-19 NEGATIVE DESCRIPTION OF PROCEDURE THE PATIENT WAS BROUGHT TO THE PROCEDURE ROOM AND PLACED IN THE PRONE POSITION. THE LUMBOSACRAL AREA WAS CLEANED WITH CHLORAPREP SOLUTION AND DRAPED ASEPTICALLY. THE PROCEDURE WAS DONE UNDER STERILE CONDITIONS. A TIMEOUT WAS PERFORMED WHERE THE CONSENTED SITE WAS VERIFIED WITH EVERYONE IN THE ROOM. UNDER FLUOROSCOPIC GUIDANCE, TARGETS WERE SELECTED AT THE INTERSECTION OF THE RIGHT AND LEFT TRANSVERSE PROCESS OF L4, L5 AND ALA OF S1 WITH ITS RESPECTIVE SUPERIOR ARTICULAR PROCESS WITH A TARGET OF THE MEDIAN BRANCHES OF L3, L4 AND THE DORSAL RAMI OF L5. I CONFIRMED AGAIN THE SITE OF TARGET. LIDOCAINE WAS USED TO NUMB THE SKIN AND THE SUBCUTANEOUS TISSUE BELOW IT. SPINAL NEEDLE, 22-GAUGE, WAS ADVANCED UNDER FLUOROSCOPIC GUIDANCE AND FOLLOWING PATIENT FEEDBACK UNTIL THE TARGETS WERE REACHED. POSITION OF THE NEEDLES WAS VERIFIED WITH AP AND LATERAL VIEWS. AFTER PROPER POSITION OF THE NEEDLES WAS ACHIEVED, ISOVUE-M DYE 30%, 0.1 ML, WAS INJECTED AT EACH SITE SHOWING ADEQUATE SPREAD OF THE DYE. THEN, A SOLUTION OF 0.4 ML OF BUPIVACAINE 0.25% WAS INJECTED AT EACH SITE. THE MEDICATIONS WERE VERIFIED WITH THE NURSE. THERE WAS NO EVIDENCE OF BLOOD, PARESTHESIA OR CEREBROSPINAL FLUID DURING THE PROCEDURE. THE PATIENT WAS SENT TO THE RECOVERY ROOM. THE PATIENT WAS MOVING THE EXTREMITIES AND DOING WELL. THERE WERE NO COMPLICATIONS DURING THE PROCEDURE. ESTIMATED BLOOD LOSS WAS LESS THAN 5 ML. FLUOROSCOPY TIME WAS 36 SECONDS POST PROCEDURE NOTE THE PATIENT WILL DOCUMENT THE PAIN LEVEL AND RESPONSE TO THIS PROCEDURE PER PAIN DIARY. THE PATIENT WILL BE SEEN IN A FOLLOW UP IN THE NEXT FEW WEEKS. FURTHER DETERMINATION FOR THE PATIENT'S CASE WILL BE DONE AT THE NEXT VISIT. INSTRUCTIONS WERE GIVEN, QUESTIONS WERE ANSWERED, AND THE PATIENT EXPRESSED UNDERSTANDING AND AGREED WITH THE PLAN. I, BALTAZAR CUETO, DOCUMENTED THE ABOVE INFORMATION ACTING A SCRIBE FOR DR. VASQUEZ. I HAVE REVIEWED THE ABOVE DOCUMENT, WRITTEN BY BALTAZAR CUETO, BOX CUTTER, AND I VERIFY THAT IT IS ACCURATE DIAGNOSTIC IMAGING [facility] FLUORO GUIDE SPINE INJECTION (PAIN)[id number] VISIT CODES PROCEDURE CODES 40638 INJ PARAVERT F JNT L/S 1 LEV, MODIFIERS: 50 [id number] INJ PARAVERT F JNT L/S 2 LEV, MODIFIERS: 50 DISPOSITION & COMMUNICATION FOLLOW UP FOLLOW UP WITH SOLAR DESIGNER (REASON: POST BILATERAL DIAGNOSTIC LUMBAR FACET BLOCK L4-L5, L5-S1 #1) ELECTRONICALLY SIGNED BY ANTHONY VASQUEZ MD, ON 05/06/2021 AT 02:06 PM EDT DISCLAIMER : THIS IS A VISIT SUMMARY EXTRACTED FROM THE [employer] CHART. IT IS NOT A COPY OF THE [employer] PROGRESS NOTE. MTDD
--- NOTE | 2021-05-07 01:19 | ECWPNPC ---
PATIENT NAME: JULIEN BRAR : 1955 GENDER: MALE VISIT DATE: 05/03/2021 DISCHARGE DATE: 05/03/21 1208 VISIT LOCKED DATE TIME: PHYSICIAN: ANTHONY VASQUEZ MD RESOURCE: ANTHONY VASQUEZ MD REASON FOR APPOINTMENT 1. BILATERAL DIAGNOSTIC LUMBAR FACET BLOCK L3-L4, L4-5, L5-S1 #1 HISTORY OF PRESENT ILLNESS GENERAL: 65-YEAR-OLD MALE PATIENT WITH A HISTORY OF CHRONIC LOW BACK PAIN. THE PATIENT DESCRIBES THE PAIN CONSTANT AND STEADY WITH A PAIN SCORE RANGING FROM 5-10/10. THE PAIN INCREASES WITH ACTIVITES. HE HAS PROBLEMS STANDING. FALL RISK SCREENING: SCREENING 8 FALLS IN THE LAST YEAR- WITHOUT INJURY. PAIN SCREENING: PATIENT HAS A COMPLAINT OF ACUTE OR CHRONIC PAIN :YES LOCATION OF PAIN:LOW BACK INTENSITY OF PAIN (SCALE OF 1 TO 10):7 WHAT DOES YOUR PAIN FEEL LIKE:ACHING DULL DURATION:CONTINOUS, CONSTANT, STEADY, ALL DAY PAIN IS INCREASED BY:PROLONGED STANDING PAIN IS DECREASED BY:OTHERS LAY ON SIDE NURSING NOTE: -. PAIN CENTER INTAKE QUESTIONS: DO YOU HAVE A HISTORY OF MRSA? :NO DO YOU TAKE A BLOOD THINNERS? :NO DO YOU HAVE ANY BLEEDING DISORDERS? :NO ANY NEW NUMBNESS OR WEAKNESS IN YOUR LEGS OR ARMS? :NO OCCASIONAL ANY PACEMAKER,DEFIBRILLATOR, OR DORSAL COLUMN STIMULATOR? :NO DO YOU HAVE ANY RASHES OR OPEN SORES? :NO ARE YOU ALLERGIC TO IV DYE? :NO ARE YOU DIABETIC? :NO ANY NEW PROBLEMS WITH YOUR MEDICATIONS? :NO HAVE YOU RECEIVED A VACCINE IN THE PAST 30 DAYS? :NO DO YOU PLAN TO RECEIVE A VACCINE IN THE NEXT 21 DAYS? :NO DO YOU TAKE ANY IMMUNOSUPPRESSIVE MEDICATIONS? :NO ANY HISTORY OF SEIZURES? :NO ANY HISTORY OF CARDIAC ISSUES OR EVENTS? :NO DO YOU HAVE ANY KIDNEY OR LIVER DISEASE? :NO DO YOU HAVE SLEEP APNEA? :NO ANY RECENT HEAD INJURY? :NO DO YOU HAVE ANY NEW INFECTIONS? :NO IS THERE A CHANCE YOU COULD BE ? :NO ARE YOU BREAST FEEDING? :NO WHEN DID YOU LAST EAT? : - WHEN DID YOU LAST DRINK? : - WHAT DID YOU LAST DRINK? : - NAME OF PERSON DRIVING YOU HOME? : TRANSIT DO YOU HAVE ANY OTHER QUESTIONS OR CONCERNS? : - CURRENT MEDICATIONS TAKING TIZANIDINE HCL 4 MG TABLET 1 TABLET NEEDED ORALLY THREE TIMES A DAY TAKING LAMOTRIGINE 25 MG TABLET 1 TABLET ORALLY TAKING SILDENAFIL CITRATE 20 MG TABLET 1 TABLET ORALLY ONCE A DAY TAKING DIVALPROEX SODIUM 500 MG TABLET DELAYED RELEASE 1 TABLET ORALLY THREE A DAY TAKING AMLODIPINE BESYLATE 10 MG TABLET 1 TABLET ORALLY ONCE A DAY TAKING TRAZODONE 100 100MG TABLET 1 TABLET ORAL ONCE PER DAY, NOTES: 50MG AT HS TAKING PRAVASTATIN 80 80MG TABLET 1 TABLET ORAL ONCE PER DAY TAKING LISINOPRIL 40 40 MG TABLET 1 TABLET ORAL ONCE PER DAY TAKING MAGNESIUM 250 MG TABLET ORALLY DAILY, NOTES: 400MG TAKING ESOMEPRAZOLE MAGNESIUM 40 MG CAPSULE DELAYED RELEASE 1 CAPSULE ORALLY ONCE A DAY TAKING MULTIVITAMIN ADULTS 50+ - TABLET DIRECTED ORALLY TAKING COMBIVENT RESPIMAT 20-100 MCG/ACT AEROSOL 1 PUFF INHALATION FOUR TIMES DAILY TAKING VITAMIN D TAKING ANORO ELLIPTA 62.5-25 MCG/INH AEROSOL POWDER BREATH ACTIVATED 1 PUFF INHALATION ONCE A DAY TAKING PROAIR HFA 108 (90 BASE) MCG/ACT AEROSOL SOLUTION 2 PUFFS NEEDED INHALATION EVERY 4 HRS TAKING FENOFIBRATE 145 TABLET 1 TABLET ORALLY ONCE A DAY NOT-TAKING ACAMPROSATE CALCIUM 333 MG TABLET DELAYED RELEASE 2 TABLETS ORALLY THREE TIMES A DAY NOT-TAKING TAMSULOSIN HCL 0.4 MG CAPSULE 1 CAPSULE ORALLY ONCE A DAY NOT-TAKING SPIRIVA HANDIHALER 18 MCG CAPSULE 1 CAPSULE INHALATION ONCE A DAY, NOTES: NOT SURE NOT-TAKING DEPAKOTE 500 MG TABLET DELAYED RELEASE 1 TABLET ORALLY TID NOT-TAKING SODIUM CHLORIDE 1 GM TABLET DIRECTED ORALLY BID NOT-TAKING FAMOTIDINE 40 MG TABLET 1 TABLET AT BEDTIME ORALLY ONCE A DAY NOT-TAKING CIPRO 500 MG TABLET 1 TABLET ORALLY EVERY 12 HRS NOT-TAKING SYMBICORT 160-4.5 MCG/ACT AEROSOL 2 PUFFS INHALATION TWICE A DAY NOT-TAKING LEVAQUIN 500 MG TABLET 1 TABLET ORALLY ONCE A DAY, NOTES: ONE DAY LEFT NOT-TAKING KEFLEX 500 MG CAPSULE 1 CAPSULE ORALLY EVERY 12 HRS, NOTES: FINISHED THIS AM NOT-TAKING CIALIS 20 MG TABLET 1 TABLET ORALLY NEEDED 1 HOUR PRIOR TO SEXUAL ACTIVITY UNKNOWN HYDROCHLOROTHIAZIDE 25 25 MG TABLET 1 TABLET ORAL ONCE PER DAY MEDICATION LIST REVIEWED AND RECONCILED WITH THE PATIENT PAST MEDICAL HISTORY BIPOLAR DISORDER HTN HIGH COLESTEROL COPD GERD DDD HX OF URINARY RETENTION MODERNA COVID-19 1ST: 11/17/2020 2ND: 12/15/2020 PNEUMOVAX 10/01/2020 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 CHRONIC BACK PAIN ALCOHOLISM HYPERLIPIDEMIA HYPERTENSIVE DISORDER DEPRESSION 7 FALLS THIS YEAR, HAD SOME BRUISE AND DID GO TO THE ER FOR A COUPLE OF THEM, NO MAJOR INJURIES ALLERGIES TRAMADOL HCL: NAUSEA/VOMITING - SIDE EFFECTS CHANTIX: NAUSEA/VOMITING - SIDE EFFECTS SEASONAL ALLERGIES: CAUSES WATERY & ITCHY EYES - ALLERGY SOCIAL HISTORY GENERAL: TOBACCO USE ARE YOU A:CURRENT SMOKER ARE YOU INTERESTED IN QUITTING?NOT READY TO QUIT COUNSELED THE PATIENT ON SMOKING EFFECTS, EDUCATION [id number]/30/2021 HOW MANY CIGARETTES A DAY DO YOU SMOKE?6-10 HOW SOON AFTER YOU WAKE UP DO YOU SMOKE YOUR FIRST CIGARETTE?WITHIN 5 MIN HOW OFTEN DO YOU SMOKE CIGARETTES?EVERY DAY PATIENT COUNSELED ON THE DANGERS OF TOBACCO USE AND URGED TO QUIT:04/22/2021 LATEX QUESTIONNAIRE LATEX ALLERGY : HAVE YOU EVER DEVELOPED ANY TYPE OF REACTION AFTER HANDLING LATEX PRODUCTS SUCH RUBBER GLOVES, CONDOMS, DIAPHRAGMS, BALLOONS, SOCKS, OR UNDERWEAR?NO LATEX ALLERGY : HAVE YOU EVER DEVELOPED ANY TYPE OF REACTION DURING OR AFTER DENTAL APPOINTMENT, VAGINAL/RECTAL EXAMINATION, SURGICAL PROCEDURE, OR ANY OTHER EXPOSURE?NO LATEX RISK : HAVE YOU EVER HAD ANY DIFFICULTY BREATHING OR HIVES AFTER EATING OR HANDLING ANY FRUITS, OR VEGETABLES; SUCH KIWI, BANANAS, STONE FRUITS, OR CHESTNUTSNO LATEX RISK : DO YOU HAVE A PREVIOUS PERSONAL HISTORY OF MORE THAN NINE SURGERIES, SPINA BIFIDA, OR REPEATED CATHERIZATIONS? NO LATEX RISK : ARE YOU FREQUENTLY EXPOSED TO LATEX PRODUCTS IN YOUR OCCUPATION?NO DATE ASKED : 04/22/2021 ALCOHOL USE: YES. ALCOHOL SCREENING POINTS: 7, INTERPRETATION: POSITIVE. RECREATIONAL DRUG USE ACCEDES OCCASIONAL MARAJUANA. CAFFEINE CAFFEINE USE?YES HOW OFTEN AND HOW MUCH? 2/DAY CUPS COFFEE SEXUAL HX HAD SEX IN THE LAST 12 MONTHS (VAGINAL, ORAL, OR ANAL)?: YES, WITH: WOMEN ONLY, USE PROTECTION?: NO, PREVENTION STRATEGIES DISCUSSED:: OTHER, HAVE YOU EVER HAD AN STD?: NO. VOODOO NO BUDDHISM BELIEFS THAT WOULD IMPACT HEALTH CARE. LANGUAGE ZIMBABWEAN. LEARNING BARRIERS / SPECIAL NEEDS CHANGE FROM LAST VISIT?YES BARRIERS TO LEARNING?YES HEARING IMPAIRED?YES :HEARING AIDES VISION IMPAIRED?NO COGNITIVELY IMPAIRED?YES :MENTAL RETARDATION READINESS TO LEARN?YES LEARNING PREFERENCES?YES :DEMONSTRATION/VERBAL INSTRUCTION LEARNING CAPABILITIES PRESENT?YES EMOTIONAL BARRIERS?YES COMMENTS DEPRESSION SPECIAL DEVICES?YES :WALKER, WHEELCHAIR COMB TENDER NEEDED?NO DOMESTIC VIOLENCE NONE. OCCUPATION: DISABLED. DIET: REGULAR. EXERCISE: WALKS. MARITAL STATUS: . OTHERS AT HOME: SEPERATED. REVIEW OF SYSTEMS CONSTITUTIONAL: ANY RECENT FEVER NO . CHILLS NO . WEIGHT CHANGE OF UNKNOWN REASONS NO . GASTROENTEROLOGY: NEW UNEXPLAINABLE CHANGES IN BOWEL CONTROL NO . CONSTIPATION NO . GENITOURINARY: ANY NEW CHANGE IN BLADDER CONTROL? NO . NEUROLOGY: NEW ONSET DIZZINESS OR NEUROLOGICAL CHANGES NOT MENTIONED NO . NEW NUMBNESS OR PAIN PATTERNS NOT MENTIONED AND PERTINENT TO TODAY'S VISIT NO . CARDIOLOGY: NEW CHEST PRESSURE NO . PATIENT DENIES NO . RESPIRATORY: UNEXPLAINABLE COUGH NO . NEW SHORTNESS OF BREATH NO . VITAL SIGNS WT 220 LBS, WT-KG 99.79 KG, HT 74 IN, BMI 28.24 INDEX, BP 139/81 MM HG, HR 119 /MIN, RR 18 /MIN, TEMP 98.7 F, OXYGEN SAT % 98%, SAFE IN ENV? (Y/N) YES, NA INITIALS AW 1012, REVIEWED BY: LAURA. EXAMINATION GENERAL: THE PATIENT IS ALERT, ORIENTED TIMES THREE AND COOPERATIVE. LUNGS ARE CLEAR TO AUSCULTATION. HEART SHOWS REGULAR RHYTHM, NO MURMURS AND NO GALLOPS. TENDERENSS IN THE LOWER BACK IN THE FACET JOINTS ON THE RIGHT AND LEFT SIDE. 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 OTHERS CLINICAL NOTES: PAT COMPLETED 05/02/21 Juan Miguel ALLRED RN I DISCUSSED ALTERNATIVES WITH MR. BARR. WE AGREE ON DOING A BILATERAL DIAGNOSTIC FACET BLOCK L3-L4, L4-L5, L5-S1 #1. DEPENDING ON THE RESULTS, WE WILL TAKE IT FROM THERE. THE PATIENT REPORTS UNDERSTANDING AND AGREES WITH TE PLAN. I, BALTAZAR CUETO, DOCUMENTED THE ABOVE INFORMATION ACTING A SCRIBE FOR DR. VASQUEZ. I HAVE REVIEWED THE ABOVE DOCUMENT, WRITTEN BY BALTAZAR CUETO, DIGITAL MARKETING STRATEGIST, AND I VERIFY THAT IT IS ACCURATE. PROCEDURES PAIN NURSING RECORD PROCEDURE IN ROOM 1125, PHYSICIAN IN ROOM 1127, START 1132, FINISH 1145, PHYSICIAN OUT OF ROOM 1145, OUT OF ROOM 1150, ECG NORMAL SINUS, PATIENT SHIELDED N/A, SAFETY STRAP YES, PREP BETADINE, DRESSING TEGADERM DR. VASQUEZ LOC: 1. ALERT, ORIENTED, ODILIA,[facility] 05/03/2021 11:33:40 AM > RESP: 1. REGULAR, NO DYSPNEA, ODILIA,[facility] 05/03/2021 11:33:44 AM > COLOR: 1. PINKODILIA,[facility] 05/03/2021 11:33:49 AM > SKIN: 1. WARM, DRY, ODILIA,[facility] 05/03/2021 11:33:55 AM > POSITION: 1. PRONEODILIA,[facility] 05/03/2021 11:34:00 AM > VITALS: 1130 - HR99, 98%, 153/96, R14 TBRADLEYRN 1145 - HR 98, 98%, 155/97, R14 TBRADLEYRN 1210 - HR 95, 97% 13/86, R14 TBRADLEYRN COMPLETION OF PROCEDURE APPOINTMENT: POST PAIN 0, DRESSING SITE DRY AND INTACT, IV DISCONTINUED, SITE CLEAR, CATHETER INTACT, GAIT WHEELCHAIR, TEACHING COMPLETED, PATIENT ACKNOWLEDGES UNDERSTANDING YES, PROCEDURE APPOINTMENT COMPLETED AT 1210 PN LUMBAR FACET BLOCK DIAGNOSTIC PRE PROCEDURE DIAGNOSIS LUMBAR SPONDYLOSIS, LUMBOSACRAL SPONDYLOSIS POST PROCEDURE DIAGNOSIS LUMBAR SPONDYLOSIS, LUMBOSACRAL SPONDYLOSIS PROCEDURE BILATERAL L4-L5 AND BILATERAL L5-S1 FACET BLOCK DIAGNOSTIC NUMBER [address] ANTHONY VASQUEZ TILLER WORKER NONE ANESTHESIA LOCAL PRE PROCEDURE NOTE THE PATIENT WITH HISTORY OF CHRONIC LOW BACK PAIN. I EVALUATED THE PATIENT AND REVIEWED THE CHART. I WENT OVER THE RISKS, ALTERNATIVES, AND BENEFITS ASSOCIATED WITH THIS PROCEDURE. THE PATIENT WOULD LIKE TO PROCEED AND GAVE CONSENT TO PERFORM THE PROCEDURE. AGREED WITH THE PATIENT, WE ARE DOING THIS PROCEDURE TO DETERMINE IF THE PATIENT IS A CANDIDATE FOR A RADIOFREQUENCY ABLATION OF THE FACETS JOINTS. THE PATIENT DENIES UNEXPLAINABLE WEIGHT LOSS, FEVER, CHILLS, OR NEW CHANGES IN URINARY OR BOWEL CONTROL. THE PATIENT IS COVID-19 NEGATIVE DESCRIPTION OF PROCEDURE THE PATIENT WAS BROUGHT TO THE PROCEDURE ROOM AND PLACED IN THE PRONE POSITION. THE LUMBOSACRAL AREA WAS CLEANED WITH CHLORAPREP SOLUTION AND DRAPED ASEPTICALLY. THE PROCEDURE WAS DONE UNDER STERILE CONDITIONS. A TIMEOUT WAS PERFORMED WHERE THE CONSENTED SITE WAS VERIFIED WITH EVERYONE IN THE ROOM. UNDER FLUOROSCOPIC GUIDANCE, TARGETS WERE SELECTED AT THE INTERSECTION OF THE RIGHT AND LEFT TRANSVERSE PROCESS OF L4, L5 AND ALA OF S1 WITH ITS RESPECTIVE SUPERIOR ARTICULAR PROCESS WITH A TARGET OF THE MEDIAN BRANCHES OF L3, L4 AND THE DORSAL RAMI OF L5. I CONFIRMED AGAIN THE SITE OF TARGET. LIDOCAINE WAS USED TO NUMB THE SKIN AND THE SUBCUTANEOUS TISSUE BELOW IT. SPINAL NEEDLE, 22-GAUGE, WAS ADVANCED UNDER FLUOROSCOPIC GUIDANCE AND FOLLOWING PATIENT FEEDBACK UNTIL THE TARGETS WERE REACHED. POSITION OF THE NEEDLES WAS VERIFIED WITH AP AND LATERAL VIEWS. AFTER PROPER POSITION OF THE NEEDLES WAS ACHIEVED, ISOVUE-M DYE 30%, 0.1 ML, WAS INJECTED AT EACH SITE SHOWING ADEQUATE SPREAD OF THE DYE. THEN, A SOLUTION OF 0.4 ML OF BUPIVACAINE 0.25% WAS INJECTED AT EACH SITE. THE MEDICATIONS WERE VERIFIED WITH THE NURSE. THERE WAS NO EVIDENCE OF BLOOD, PARESTHESIA OR CEREBROSPINAL FLUID DURING THE PROCEDURE. THE PATIENT WAS SENT TO THE RECOVERY ROOM. THE PATIENT WAS MOVING THE EXTREMITIES AND DOING WELL. THERE WERE NO COMPLICATIONS DURING THE PROCEDURE. ESTIMATED BLOOD LOSS WAS LESS THAN 5 ML. FLUOROSCOPY TIME WAS 36 SECONDS POST PROCEDURE NOTE THE PATIENT WILL DOCUMENT THE PAIN LEVEL AND RESPONSE TO THIS PROCEDURE PER PAIN DIARY. THE PATIENT WILL BE SEEN IN A FOLLOW UP IN THE NEXT FEW WEEKS. FURTHER DETERMINATION FOR THE PATIENT'S CASE WILL BE DONE AT THE NEXT VISIT. INSTRUCTIONS WERE GIVEN, QUESTIONS WERE ANSWERED, AND THE PATIENT EXPRESSED UNDERSTANDING AND AGREED WITH THE PLAN. I, BALTAZAR CUETO, DOCUMENTED THE ABOVE INFORMATION ACTING A SCRIBE FOR DR. VASQUEZ. I HAVE REVIEWED THE ABOVE DOCUMENT, WRITTEN BY BALTAZAR CUETO, DIGITAL MARKETING STRATEGIST, AND I VERIFY THAT IT IS ACCURATE DIAGNOSTIC IMAGING [facility]ORO GUIDE SPINE INJECTION (PAIN)[id number] VISIT CODES PROCEDURE CODES 83067 INJ PARAVERT F JNT L/S 1 LEV, MODIFIERS: 50 [id number] INJ PARAVERT F JNT L/S 2 LEV, MODIFIERS: 50 DISPOSITION & COMMUNICATION FOLLOW UP FOLLOW UP WITH LEGAL ASSOCIATE (REASON: POST BILATERAL DIAGNOSTIC LUMBAR FACET BLOCK L4-L5, L5-S1 #1) ELECTRONICALLY SIGNED BY ANTHONY VASQUEZ MD, ON 05/06/2021 AT 02:06 PM EDT DISCLAIMER : THIS IS A VISIT SUMMARY EXTRACTED FROM THE [facility] CHART. IT IS NOT A COPY OF THE [facility] PROGRESS NOTE. MTDD
--- NOTE | 2021-05-07 01:22 | ECWPNPC ---
PATIENT NAME: JULIEN BRAR : 1955 GENDER: MALE VISIT DATE: 05/03/2021 DISCHARGE DATE: 05/03/21 1208 VISIT LOCKED DATE TIME: PHYSICIAN: ANTHONY VASQUEZ MD RESOURCE: ANTHONY VASQUEZ MD REASON FOR APPOINTMENT 1. BILATERAL DIAGNOSTIC LUMBAR FACET BLOCK L3-L4, L4-5, L5-S1 #1 HISTORY OF PRESENT ILLNESS GENERAL: 65-YEAR-OLD MALE PATIENT WITH A HISTORY OF CHRONIC LOW BACK PAIN. THE PATIENT DESCRIBES THE PAIN CONSTANT AND STEADY WITH A PAIN SCORE RANGING FROM 5-10/10. THE PAIN INCREASES WITH ACTIVITES. HE HAS PROBLEMS STANDING. FALL RISK SCREENING: SCREENING 8 FALLS IN THE LAST YEAR- WITHOUT INJURY. PAIN SCREENING: PATIENT HAS A COMPLAINT OF ACUTE OR CHRONIC PAIN :YES LOCATION OF PAIN:LOW BACK INTENSITY OF PAIN (SCALE OF 1 TO 10):7 WHAT DOES YOUR PAIN FEEL LIKE:ACHING DULL DURATION:CONTINOUS, CONSTANT, STEADY, ALL DAY PAIN IS INCREASED BY:PROLONGED STANDING PAIN IS DECREASED BY:OTHERS LAY ON SIDE NURSING NOTE: -. PAIN CENTER INTAKE QUESTIONS: DO YOU HAVE A HISTORY OF MRSA? :NO DO YOU TAKE A BLOOD THINNERS? :NO DO YOU HAVE ANY BLEEDING DISORDERS? :NO ANY NEW NUMBNESS OR WEAKNESS IN YOUR LEGS OR ARMS? :NO OCCASIONAL ANY PACEMAKER,DEFIBRILLATOR, OR DORSAL COLUMN STIMULATOR? :NO DO YOU HAVE ANY RASHES OR OPEN SORES? :NO ARE YOU ALLERGIC TO IV DYE? :NO ARE YOU DIABETIC? :NO ANY NEW PROBLEMS WITH YOUR MEDICATIONS? :NO HAVE YOU RECEIVED A VACCINE IN THE PAST 30 DAYS? :NO DO YOU PLAN TO RECEIVE A VACCINE IN THE NEXT 21 DAYS? :NO DO YOU TAKE ANY IMMUNOSUPPRESSIVE MEDICATIONS? :NO ANY HISTORY OF SEIZURES? :NO ANY HISTORY OF CARDIAC ISSUES OR EVENTS? :NO DO YOU HAVE ANY KIDNEY OR LIVER DISEASE? :NO DO YOU HAVE SLEEP APNEA? :NO ANY RECENT HEAD INJURY? :NO DO YOU HAVE ANY NEW INFECTIONS? :NO IS THERE A CHANCE YOU COULD BE ? :NO ARE YOU BREAST FEEDING? :NO WHEN DID YOU LAST EAT? : - WHEN DID YOU LAST DRINK? : - WHAT DID YOU LAST DRINK? : - NAME OF PERSON DRIVING YOU HOME? : TRANSIT DO YOU HAVE ANY OTHER QUESTIONS OR CONCERNS? : - CURRENT MEDICATIONS TAKING TIZANIDINE HCL 4 MG TABLET 1 TABLET NEEDED ORALLY THREE TIMES A DAY TAKING LAMOTRIGINE 25 MG TABLET 1 TABLET ORALLY TAKING SILDENAFIL CITRATE 20 MG TABLET 1 TABLET ORALLY ONCE A DAY TAKING DIVALPROEX SODIUM 500 MG TABLET DELAYED RELEASE 1 TABLET ORALLY THREE A DAY TAKING AMLODIPINE BESYLATE 10 MG TABLET 1 TABLET ORALLY ONCE A DAY TAKING TRAZODONE 100 100MG TABLET 1 TABLET ORAL ONCE PER DAY, NOTES: 50MG AT HS TAKING PRAVASTATIN 80 80MG TABLET 1 TABLET ORAL ONCE PER DAY TAKING LISINOPRIL 40 40 MG TABLET 1 TABLET ORAL ONCE PER DAY TAKING MAGNESIUM 250 MG TABLET ORALLY DAILY, NOTES: 400MG TAKING ESOMEPRAZOLE MAGNESIUM 40 MG CAPSULE DELAYED RELEASE 1 CAPSULE ORALLY ONCE A DAY TAKING MULTIVITAMIN ADULTS 50+ - TABLET DIRECTED ORALLY TAKING COMBIVENT RESPIMAT 20-100 MCG/ACT AEROSOL 1 PUFF INHALATION FOUR TIMES DAILY TAKING VITAMIN D TAKING ANORO ELLIPTA 62.5-25 MCG/INH AEROSOL POWDER BREATH ACTIVATED 1 PUFF INHALATION ONCE A DAY TAKING PROAIR HFA 108 (90 BASE) MCG/ACT AEROSOL SOLUTION 2 PUFFS NEEDED INHALATION EVERY 4 HRS TAKING FENOFIBRATE 145 TABLET 1 TABLET ORALLY ONCE A DAY NOT-TAKING ACAMPROSATE CALCIUM 333 MG TABLET DELAYED RELEASE 2 TABLETS ORALLY THREE TIMES A DAY NOT-TAKING TAMSULOSIN HCL 0.4 MG CAPSULE 1 CAPSULE ORALLY ONCE A DAY NOT-TAKING SPIRIVA HANDIHALER 18 MCG CAPSULE 1 CAPSULE INHALATION ONCE A DAY, NOTES: NOT SURE NOT-TAKING DEPAKOTE 500 MG TABLET DELAYED RELEASE 1 TABLET ORALLY TID NOT-TAKING SODIUM CHLORIDE 1 GM TABLET DIRECTED ORALLY BID NOT-TAKING FAMOTIDINE 40 MG TABLET 1 TABLET AT BEDTIME ORALLY ONCE A DAY NOT-TAKING CIPRO 500 MG TABLET 1 TABLET ORALLY EVERY 12 HRS NOT-TAKING SYMBICORT 160-4.5 MCG/ACT AEROSOL 2 PUFFS INHALATION TWICE A DAY NOT-TAKING LEVAQUIN 500 MG TABLET 1 TABLET ORALLY ONCE A DAY, NOTES: ONE DAY LEFT NOT-TAKING KEFLEX 500 MG CAPSULE 1 CAPSULE ORALLY EVERY 12 HRS, NOTES: FINISHED THIS AM NOT-TAKING CIALIS 20 MG TABLET 1 TABLET ORALLY NEEDED 1 HOUR PRIOR TO SEXUAL ACTIVITY UNKNOWN HYDROCHLOROTHIAZIDE 25 25 MG TABLET 1 TABLET ORAL ONCE PER DAY MEDICATION LIST REVIEWED AND RECONCILED WITH THE PATIENT PAST MEDICAL HISTORY BIPOLAR DISORDER HTN HIGH COLESTEROL COPD GERD DDD HX OF URINARY RETENTION MODERNA COVID-19 1ST: 11/17/2020 2ND: 12/15/2020 PNEUMOVAX 10/01/2020 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 CHRONIC BACK PAIN ALCOHOLISM HYPERLIPIDEMIA HYPERTENSIVE DISORDER DEPRESSION 7 FALLS THIS YEAR, HAD SOME BRUISE AND DID GO TO THE ER FOR A COUPLE OF THEM, NO MAJOR INJURIES ALLERGIES TRAMADOL HCL: NAUSEA/VOMITING - SIDE EFFECTS CHANTIX: NAUSEA/VOMITING - SIDE EFFECTS SEASONAL ALLERGIES: CAUSES WATERY & ITCHY EYES - ALLERGY SOCIAL HISTORY GENERAL: TOBACCO USE ARE YOU A:CURRENT SMOKER ARE YOU INTERESTED IN QUITTING?NOT READY TO QUIT COUNSELED THE PATIENT ON SMOKING EFFECTS, EDUCATION [id number]/2021 HOW MANY CIGARETTES A DAY DO YOU SMOKE?6-10 HOW SOON AFTER YOU WAKE UP DO YOU SMOKE YOUR FIRST CIGARETTE?WITHIN 5 MIN HOW OFTEN DO YOU SMOKE CIGARETTES?EVERY DAY PATIENT COUNSELED ON THE DANGERS OF TOBACCO USE AND URGED TO QUIT:04/22/2021 LATEX QUESTIONNAIRE LATEX ALLERGY : HAVE YOU EVER DEVELOPED ANY TYPE OF REACTION AFTER HANDLING LATEX PRODUCTS SUCH RUBBER GLOVES, CONDOMS, DIAPHRAGMS, BALLOONS, SOCKS, OR UNDERWEAR?NO LATEX ALLERGY : HAVE YOU EVER DEVELOPED ANY TYPE OF REACTION DURING OR AFTER DENTAL APPOINTMENT, VAGINAL/RECTAL EXAMINATION, SURGICAL PROCEDURE, OR ANY OTHER EXPOSURE?NO LATEX RISK : HAVE YOU EVER HAD ANY DIFFICULTY BREATHING OR HIVES AFTER EATING OR HANDLING ANY FRUITS, OR VEGETABLES; SUCH KIWI, BANANAS, STONE FRUITS, OR CHESTNUTSNO LATEX RISK : DO YOU HAVE A PREVIOUS PERSONAL HISTORY OF MORE THAN NINE SURGERIES, SPINA BIFIDA, OR REPEATED CATHERIZATIONS? NO LATEX RISK : ARE YOU FREQUENTLY EXPOSED TO LATEX PRODUCTS IN YOUR OCCUPATION?NO DATE ASKED : 04/22/2021 ALCOHOL USE: YES. ALCOHOL SCREENING POINTS: 7, INTERPRETATION: POSITIVE. RECREATIONAL DRUG USE ACCEDES OCCASIONAL MARAJUANA. CAFFEINE CAFFEINE USE?YES HOW OFTEN AND HOW MUCH? 2/DAY CUPS COFFEE SEXUAL HX HAD SEX IN THE LAST 12 MONTHS (VAGINAL, ORAL, OR ANAL)?: YES, WITH: WOMEN ONLY, USE PROTECTION?: NO, PREVENTION STRATEGIES DISCUSSED:: OTHER, HAVE YOU EVER HAD AN STD?: NO. DENOMINATIONAL NO DENOMINATIONAL BELIEFS THAT WOULD IMPACT HEALTH CARE. LANGUAGE HAITIAN. LEARNING BARRIERS / SPECIAL NEEDS CHANGE FROM LAST VISIT?YES BARRIERS TO LEARNING?YES HEARING IMPAIRED?YES :HEARING AIDES VISION IMPAIRED?NO COGNITIVELY IMPAIRED?YES :MENTAL RETARDATION READINESS TO LEARN?YES LEARNING PREFERENCES?YES :DEMONSTRATION/VERBAL INSTRUCTION LEARNING CAPABILITIES PRESENT?YES EMOTIONAL BARRIERS?YES COMMENTS DEPRESSION SPECIAL DEVICES?YES :WALKER, WHEELCHAIR MANAGER PRODUCT NEEDED?NO DOMESTIC VIOLENCE NONE. OCCUPATION: DISABLED. DIET: REGULAR. EXERCISE: WALKS. MARITAL STATUS: . OTHERS AT HOME: SEPERATED. REVIEW OF SYSTEMS CONSTITUTIONAL: ANY RECENT FEVER NO . CHILLS NO . WEIGHT CHANGE OF UNKNOWN REASONS NO . GASTROENTEROLOGY: NEW UNEXPLAINABLE CHANGES IN BOWEL CONTROL NO . CONSTIPATION NO . GENITOURINARY: ANY NEW CHANGE IN BLADDER CONTROL? NO . NEUROLOGY: NEW ONSET DIZZINESS OR NEUROLOGICAL CHANGES NOT MENTIONED NO . NEW NUMBNESS OR PAIN PATTERNS NOT MENTIONED AND PERTINENT TO TODAY'S VISIT NO . CARDIOLOGY: NEW CHEST PRESSURE NO . PATIENT DENIES NO . RESPIRATORY: UNEXPLAINABLE COUGH NO . NEW SHORTNESS OF BREATH NO . VITAL SIGNS WT 220 LBS, WT-KG 99.79 KG, HT 74 IN, BMI 28.24 INDEX, BP 139/81 MM HG, HR 119 /MIN, RR 18 /MIN, TEMP 98.7 F, OXYGEN SAT % 98%, SAFE IN ENV? (Y/N) YES, NA INITIALS AW 1012, REVIEWED BY: LAURA. EXAMINATION GENERAL: THE PATIENT IS ALERT, ORIENTED TIMES THREE AND COOPERATIVE. LUNGS ARE CLEAR TO AUSCULTATION. HEART SHOWS REGULAR RHYTHM, NO MURMURS AND NO GALLOPS. TENDERENSS IN THE LOWER BACK IN THE FACET JOINTS ON THE RIGHT AND LEFT SIDE. ASSESSMENTS SPONDYLOSIS WITHOUT MYELOPATHY OR RADICULOPATHY, LUMBAR REGION - M47.816 (PRIMARY) LUMBAR FACET ARTHROPATHY - M47.816 TREATMENT SPONDYLOSIS WITHOUT MYELOPATHY OR RADICULOPATHY, LUMBAR REGION COMPLETION OF PROCEDURAL VISIT WHEN MEETS [id number],TOM 05/03/2021 12:18:15 PM > CRITERIA MET SALINE [id number],TOM 05/03/2021 11:56:11 AM > 20G IV ACCESS OBTAINED BY SASHA ISIDRO RN @1100 SUSANNE HARTLEY 05/03/2021 11:57:08 AM > RAC NOTES: PATIENT REPORTED PAIN PRIOR TO PROCEDURE 05/03, POST PROCEDURE LAURA. OTHERS CLINICAL NOTES: PAT COMPLETED 05/02/21 Juan Miguel ALLRED RN I DISCUSSED ALTERNATIVES WITH MR. BRAR. WE AGREE ON DOING A BILATERAL DIAGNOSTIC FACET BLOCK L3-L4, L4-L5, L5-S1 #1. DEPENDING ON THE RESULTS, WE WILL TAKE IT FROM THERE. THE PATIENT REPORTS UNDERSTANDING AND AGREES WITH TE PLAN. I, BALTAZAR CUETO, DOCUMENTED THE ABOVE INFORMATION ACTING A SCRIBE FOR DR. VASQUEZ. I HAVE REVIEWED THE ABOVE DOCUMENT, WRITTEN BY BALTAZAR CUETO, INSTRUCTIONAL TECHNOLOGY DIRECTOR, AND I VERIFY THAT IT IS ACCURATE. PROCEDURES PAIN NURSING RECORD PROCEDURE IN ROOM 1125, PHYSICIAN IN ROOM 1127, START 1132, FINISH 1145, PHYSICIAN OUT OF ROOM 1145, OUT OF ROOM 1150, ECG NORMAL SINUS, PATIENT SHIELDED N/A, SAFETY STRAP YES, PREP BETADINE, DRESSING TEGADERM DR. VASQUEZ LOC: 1. ALERT, ORIENTED, OD[facility] 05/03/2021 11:33:40 AM > RESP: 1. REGULAR, NO DYSPNEA, ODILIA,[facility] 05/03/2021 11:33:44 AM > COLOR: 1. PINKODILIA,[facility] 05/03/2021 11:33:49 AM > SKIN: 1. WARM, DRY, ODILIA,[facility] 05/03/2021 11:33:55 AM > POSITION: 1. PRONEODILIA,[facility] 05/03/2021 11:34:00 AM > VITALS: 1130 - HR99, 98%, 153/96, R14 TBRADLEYRN 1145 - HR 98, 98%, 155/97, R14 TBRADLEYRN 1210 - HR 95, 97% 13/86, R14 TBRADLEYRN COMPLETION OF PROCEDURE APPOINTMENT: POST PAIN 0, DRESSING SITE DRY AND INTACT, IV DISCONTINUED, SITE CLEAR, CATHETER INTACT, GAIT WHEELCHAIR, TEACHING COMPLETED, PATIENT ACKNOWLEDGES UNDERSTANDING YES, PROCEDURE APPOINTMENT COMPLETED AT 1210 PN LUMBAR FACET BLOCK DIAGNOSTIC PRE PROCEDURE DIAGNOSIS LUMBAR SPONDYLOSIS, LUMBOSACRAL SPONDYLOSIS POST PROCEDURE DIAGNOSIS LUMBAR SPONDYLOSIS, LUMBOSACRAL SPONDYLOSIS PROCEDURE BILATERAL L4-L5 AND BILATERAL L5-S1 FACET BLOCK DIAGNOSTIC NUMBER [address] ANTHONY VASQUEZ EXAMINER OF CURRENCY NONE ANESTHESIA LOCAL PRE PROCEDURE NOTE THE PATIENT WITH HISTORY OF CHRONIC LOW BACK PAIN. I EVALUATED THE PATIENT AND REVIEWED THE CHART. I WENT OVER THE RISKS, ALTERNATIVES, AND BENEFITS ASSOCIATED WITH THIS PROCEDURE. THE PATIENT WOULD LIKE TO PROCEED AND GAVE CONSENT TO PERFORM THE PROCEDURE. AGREED WITH THE PATIENT, WE ARE DOING THIS PROCEDURE TO DETERMINE IF THE PATIENT IS A CANDIDATE FOR A RADIOFREQUENCY ABLATION OF THE FACETS JOINTS. THE PATIENT DENIES UNEXPLAINABLE WEIGHT LOSS, FEVER, CHILLS, OR NEW CHANGES IN URINARY OR BOWEL CONTROL. THE PATIENT IS COVID-19 NEGATIVE DESCRIPTION OF PROCEDURE THE PATIENT WAS BROUGHT TO THE PROCEDURE ROOM AND PLACED IN THE PRONE POSITION. THE LUMBOSACRAL AREA WAS CLEANED WITH CHLORAPREP SOLUTION AND DRAPED ASEPTICALLY. THE PROCEDURE WAS DONE UNDER STERILE CONDITIONS. A TIMEOUT WAS PERFORMED WHERE THE CONSENTED SITE WAS VERIFIED WITH EVERYONE IN THE ROOM. UNDER FLUOROSCOPIC GUIDANCE, TARGETS WERE SELECTED AT THE INTERSECTION OF THE RIGHT AND LEFT TRANSVERSE PROCESS OF L4, L5 AND ALA OF S1 WITH ITS RESPECTIVE SUPERIOR ARTICULAR PROCESS WITH A TARGET OF THE MEDIAN BRANCHES OF L3, L4 AND THE DORSAL RAMI OF L5. I CONFIRMED AGAIN THE SITE OF TARGET. LIDOCAINE WAS USED TO NUMB THE SKIN AND THE SUBCUTANEOUS TISSUE BELOW IT. SPINAL NEEDLE, 22-GAUGE, WAS ADVANCED UNDER FLUOROSCOPIC GUIDANCE AND FOLLOWING PATIENT FEEDBACK UNTIL THE TARGETS WERE REACHED. POSITION OF THE NEEDLES WAS VERIFIED WITH AP AND LATERAL VIEWS. AFTER PROPER POSITION OF THE NEEDLES WAS ACHIEVED, ISOVUE-M DYE 30%, 0.1 ML, WAS INJECTED AT EACH SITE SHOWING ADEQUATE SPREAD OF THE DYE. THEN, A SOLUTION OF 0.4 ML OF BUPIVACAINE 0.25% WAS INJECTED AT EACH SITE. THE MEDICATIONS WERE VERIFIED WITH THE NURSE. THERE WAS NO EVIDENCE OF BLOOD, PARESTHESIA OR CEREBROSPINAL FLUID DURING THE PROCEDURE. THE PATIENT WAS SENT TO THE RECOVERY ROOM. THE PATIENT WAS MOVING THE EXTREMITIES AND DOING WELL. THERE WERE NO COMPLICATIONS DURING THE PROCEDURE. ESTIMATED BLOOD LOSS WAS LESS THAN 5 ML. FLUOROSCOPY TIME WAS 36 SECONDS POST PROCEDURE NOTE THE PATIENT WILL DOCUMENT THE PAIN LEVEL AND RESPONSE TO THIS PROCEDURE PER PAIN DIARY. THE PATIENT WILL BE SEEN IN A FOLLOW UP IN THE NEXT FEW WEEKS. FURTHER DETERMINATION FOR THE PATIENT'S CASE WILL BE DONE AT THE NEXT VISIT. INSTRUCTIONS WERE GIVEN, QUESTIONS WERE ANSWERED, AND THE PATIENT EXPRESSED UNDERSTANDING AND AGREED WITH THE PLAN. I, BALTAZAR CUETO, DOCUMENTED THE ABOVE INFORMATION ACTING A SCRIBE FOR DR. VASQUEZ. I HAVE REVIEWED THE ABOVE DOCUMENT, WRITTEN BY BALTAZAR CUETO, INSTRUCTIONAL TECHNOLOGY DIRECTOR, AND I VERIFY THAT IT IS ACCURATE DIAGNOSTIC IMAGING [facility] FLUORO GUIDE SPINE INJECTION (PAIN)[id number] VISIT CODES PROCEDURE CODES 88565 INJ PARAVERT F JNT L/S 1 LEV, MODIFIERS: 50 [id number] INJ PARAVERT F JNT L/S 2 LEV, MODIFIERS: 50 DISPOSITION & COMMUNICATION FOLLOW UP FOLLOW UP WITH NETWORK TECHNICIAN (REASON: POST BILATERAL DIAGNOSTIC LUMBAR FACET BLOCK L4-L5, L5-S1 #1) ELECTRONICALLY SIGNED BY ANTHONY VASQUEZ MD, ON 05/06/2021 AT 02:06 PM EDT DISCLAIMER : THIS IS A VISIT SUMMARY EXTRACTED FROM THE [employer] CHART. IT IS NOT A COPY OF THE [employer] PROGRESS NOTE. MTDD
--- NOTE | 2021-05-07 01:24 | ECWPNPC ---
PATIENT NAME: JULIEN BRAR : 1955 GENDER: MALE VISIT DATE: 05/03/2021 DISCHARGE DATE: 05/03/21 1208 VISIT LOCKED DATE TIME: PHYSICIAN: ANTHONY VASQUEZ MD RESOURCE: ANTHONY VASQUEZ MD REASON FOR APPOINTMENT 1. BILATERAL DIAGNOSTIC LUMBAR FACET BLOCK L3-L4, L4-5, L5-S1 #1 HISTORY OF PRESENT ILLNESS GENERAL: 65-YEAR-OLD MALE PATIENT WITH A HISTORY OF CHRONIC LOW BACK PAIN. THE PATIENT DESCRIBES THE PAIN CONSTANT AND STEADY WITH A PAIN SCORE RANGING FROM 5-10/10. THE PAIN INCREASES WITH ACTIVITES. HE HAS PROBLEMS STANDING. FALL RISK SCREENING: SCREENING 8 FALLS IN THE LAST YEAR- WITHOUT INJURY. PAIN SCREENING: PATIENT HAS A COMPLAINT OF ACUTE OR CHRONIC PAIN :YES LOCATION OF PAIN:LOW BACK INTENSITY OF PAIN (SCALE OF 1 TO 10):7 WHAT DOES YOUR PAIN FEEL LIKE:ACHING DULL DURATION:CONTINOUS, CONSTANT, STEADY, ALL DAY PAIN IS INCREASED BY:PROLONGED STANDING PAIN IS DECREASED BY:OTHERS LAY ON SIDE NURSING NOTE: -. PAIN CENTER INTAKE QUESTIONS: DO YOU HAVE A HISTORY OF MRSA? :NO DO YOU TAKE A BLOOD THINNERS? :NO DO YOU HAVE ANY BLEEDING DISORDERS? :NO ANY NEW NUMBNESS OR WEAKNESS IN YOUR LEGS OR ARMS? :NO OCCASIONAL ANY PACEMAKER,DEFIBRILLATOR, OR DORSAL COLUMN STIMULATOR? :NO DO YOU HAVE ANY RASHES OR OPEN SORES? :NO ARE YOU ALLERGIC TO IV DYE? :NO ARE YOU DIABETIC? :NO ANY NEW PROBLEMS WITH YOUR MEDICATIONS? :NO HAVE YOU RECEIVED A VACCINE IN THE PAST 30 DAYS? :NO DO YOU PLAN TO RECEIVE A VACCINE IN THE NEXT 21 DAYS? :NO DO YOU TAKE ANY IMMUNOSUPPRESSIVE MEDICATIONS? :NO ANY HISTORY OF SEIZURES? :NO ANY HISTORY OF CARDIAC ISSUES OR EVENTS? :NO DO YOU HAVE ANY KIDNEY OR LIVER DISEASE? :NO DO YOU HAVE SLEEP APNEA? :NO ANY RECENT HEAD INJURY? :NO DO YOU HAVE ANY NEW INFECTIONS? :NO IS THERE A CHANCE YOU COULD BE ? :NO ARE YOU BREAST FEEDING? :NO WHEN DID YOU LAST EAT? : - WHEN DID YOU LAST DRINK? : - WHAT DID YOU LAST DRINK? : - NAME OF PERSON DRIVING YOU HOME? : TRANSIT DO YOU HAVE ANY OTHER QUESTIONS OR CONCERNS? : - CURRENT MEDICATIONS TAKING TIZANIDINE HCL 4 MG TABLET 1 TABLET NEEDED ORALLY THREE TIMES A DAY TAKING LAMOTRIGINE 25 MG TABLET 1 TABLET ORALLY TAKING SILDENAFIL CITRATE 20 MG TABLET 1 TABLET ORALLY ONCE A DAY TAKING DIVALPROEX SODIUM 500 MG TABLET DELAYED RELEASE 1 TABLET ORALLY THREE A DAY TAKING AMLODIPINE BESYLATE 10 MG TABLET 1 TABLET ORALLY ONCE A DAY TAKING TRAZODONE 100 100MG TABLET 1 TABLET ORAL ONCE PER DAY, NOTES: 50MG AT HS TAKING PRAVASTATIN 80 80MG TABLET 1 TABLET ORAL ONCE PER DAY TAKING LISINOPRIL 40 40 MG TABLET 1 TABLET ORAL ONCE PER DAY TAKING MAGNESIUM 250 MG TABLET ORALLY DAILY, NOTES: 400MG TAKING ESOMEPRAZOLE MAGNESIUM 40 MG CAPSULE DELAYED RELEASE 1 CAPSULE ORALLY ONCE A DAY TAKING MULTIVITAMIN ADULTS 50+ - TABLET DIRECTED ORALLY TAKING COMBIVENT RESPIMAT 20-100 MCG/ACT AEROSOL 1 PUFF INHALATION FOUR TIMES DAILY TAKING VITAMIN D TAKING ANORO ELLIPTA 62.5-25 MCG/INH AEROSOL POWDER BREATH ACTIVATED 1 PUFF INHALATION ONCE A DAY TAKING PROAIR HFA 108 (90 BASE) MCG/ACT AEROSOL SOLUTION 2 PUFFS NEEDED INHALATION EVERY 4 HRS TAKING FENOFIBRATE 145 TABLET 1 TABLET ORALLY ONCE A DAY NOT-TAKING ACAMPROSATE CALCIUM 333 MG TABLET DELAYED RELEASE 2 TABLETS ORALLY THREE TIMES A DAY NOT-TAKING TAMSULOSIN HCL 0.4 MG CAPSULE 1 CAPSULE ORALLY ONCE A DAY NOT-TAKING SPIRIVA HANDIHALER 18 MCG CAPSULE 1 CAPSULE INHALATION ONCE A DAY, NOTES: NOT SURE NOT-TAKING DEPAKOTE 500 MG TABLET DELAYED RELEASE 1 TABLET ORALLY TID NOT-TAKING SODIUM CHLORIDE 1 GM TABLET DIRECTED ORALLY BID NOT-TAKING FAMOTIDINE 40 MG TABLET 1 TABLET AT BEDTIME ORALLY ONCE A DAY NOT-TAKING CIPRO 500 MG TABLET 1 TABLET ORALLY EVERY 12 HRS NOT-TAKING SYMBICORT 160-4.5 MCG/ACT AEROSOL 2 PUFFS INHALATION TWICE A DAY NOT-TAKING LEVAQUIN 500 MG TABLET 1 TABLET ORALLY ONCE A DAY, NOTES: ONE DAY LEFT NOT-TAKING KEFLEX 500 MG CAPSULE 1 CAPSULE ORALLY EVERY 12 HRS, NOTES: FINISHED THIS AM NOT-TAKING CIALIS 20 MG TABLET 1 TABLET ORALLY NEEDED 1 HOUR PRIOR TO SEXUAL ACTIVITY UNKNOWN HYDROCHLOROTHIAZIDE 25 25 MG TABLET 1 TABLET ORAL ONCE PER DAY MEDICATION LIST REVIEWED AND RECONCILED WITH THE PATIENT PAST MEDICAL HISTORY BIPOLAR DISORDER HTN HIGH COLESTEROL COPD GERD DDD HX OF URINARY RETENTION MODERNA COVID-19 1ST: 11/17/2020 2ND: 12/15/2020 PNEUMOVAX 10/01/2020 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 CHRONIC BACK PAIN ALCOHOLISM HYPERLIPIDEMIA HYPERTENSIVE DISORDER DEPRESSION 7 FALLS THIS YEAR, HAD SOME BRUISE AND DID GO TO THE ER FOR A COUPLE OF THEM, NO MAJOR INJURIES ALLERGIES TRAMADOL HCL: NAUSEA/VOMITING - SIDE EFFECTS CHANTIX: NAUSEA/VOMITING - SIDE EFFECTS SEASONAL ALLERGIES: CAUSES WATERY & ITCHY EYES - ALLERGY SOCIAL HISTORY GENERAL: TOBACCO USE ARE YOU A:CURRENT SMOKER ARE YOU INTERESTED IN QUITTING?NOT READY TO QUIT COUNSELED THE PATIENT ON SMOKING EFFECTS, EDUCATION [id number]/30/2021 HOW MANY CIGARETTES A DAY DO YOU SMOKE?6-10 HOW SOON AFTER YOU WAKE UP DO YOU SMOKE YOUR FIRST CIGARETTE?WITHIN 5 MIN HOW OFTEN DO YOU SMOKE CIGARETTES?EVERY DAY PATIENT COUNSELED ON THE DANGERS OF TOBACCO USE AND URGED TO QUIT:04/22/2021 LATEX QUESTIONNAIRE LATEX ALLERGY : HAVE YOU EVER DEVELOPED ANY TYPE OF REACTION AFTER HANDLING LATEX PRODUCTS SUCH RUBBER GLOVES, CONDOMS, DIAPHRAGMS, BALLOONS, SOCKS, OR UNDERWEAR?NO LATEX ALLERGY : HAVE YOU EVER DEVELOPED ANY TYPE OF REACTION DURING OR AFTER DENTAL APPOINTMENT, VAGINAL/RECTAL EXAMINATION, SURGICAL PROCEDURE, OR ANY OTHER EXPOSURE?NO LATEX RISK : HAVE YOU EVER HAD ANY DIFFICULTY BREATHING OR HIVES AFTER EATING OR HANDLING ANY FRUITS, OR VEGETABLES; SUCH KIWI, BANANAS, STONE FRUITS, OR CHESTNUTSNO LATEX RISK : DO YOU HAVE A PREVIOUS PERSONAL HISTORY OF MORE THAN NINE SURGERIES, SPINA BIFIDA, OR REPEATED CATHERIZATIONS? NO LATEX RISK : ARE YOU FREQUENTLY EXPOSED TO LATEX PRODUCTS IN YOUR OCCUPATION?NO DATE ASKED : 04/22/2021 ALCOHOL USE: YES. ALCOHOL SCREENING POINTS: 7, INTERPRETATION: POSITIVE. RECREATIONAL DRUG USE ACCEDES OCCASIONAL MARAJUANA. CAFFEINE CAFFEINE USE?YES HOW OFTEN AND HOW MUCH? 2/DAY CUPS COFFEE SEXUAL HX HAD SEX IN THE LAST 12 MONTHS (VAGINAL, ORAL, OR ANAL)?: YES, WITH: WOMEN ONLY, USE PROTECTION?: NO, PREVENTION STRATEGIES DISCUSSED:: OTHER, HAVE YOU EVER HAD AN STD?: NO. CONGREGATIONAL NO LATTER DAY BELIEFS THAT WOULD IMPACT HEALTH CARE. LANGUAGE ICELANDIC. LEARNING BARRIERS / SPECIAL NEEDS CHANGE FROM LAST VISIT?YES BARRIERS TO LEARNING?YES HEARING IMPAIRED?YES :HEARING AIDES VISION IMPAIRED?NO COGNITIVELY IMPAIRED?YES :MENTAL RETARDATION READINESS TO LEARN?YES LEARNING PREFERENCES?YES :DEMONSTRATION/VERBAL INSTRUCTION LEARNING CAPABILITIES PRESENT?YES EMOTIONAL BARRIERS?YES COMMENTS DEPRESSION SPECIAL DEVICES?YES :WALKER, WHEELCHAIR DREDGE MATE NEEDED?NO DOMESTIC VIOLENCE NONE. OCCUPATION: DISABLED. DIET: REGULAR. EXERCISE: WALKS. MARITAL STATUS: . OTHERS AT HOME: SEPERATED. REVIEW OF SYSTEMS CONSTITUTIONAL: ANY RECENT FEVER NO . CHILLS NO . WEIGHT CHANGE OF UNKNOWN REASONS NO . GASTROENTEROLOGY: NEW UNEXPLAINABLE CHANGES IN BOWEL CONTROL NO . CONSTIPATION NO . GENITOURINARY: ANY NEW CHANGE IN BLADDER CONTROL? NO . NEUROLOGY: NEW ONSET DIZZINESS OR NEUROLOGICAL CHANGES NOT MENTIONED NO . NEW NUMBNESS OR PAIN PATTERNS NOT MENTIONED AND PERTINENT TO TODAY'S VISIT NO . CARDIOLOGY: NEW CHEST PRESSURE NO . PATIENT DENIES NO . RESPIRATORY: UNEXPLAINABLE COUGH NO . NEW SHORTNESS OF BREATH NO . VITAL SIGNS WT 220 LBS, WT-KG 99.79 KG, HT 74 IN, BMI 28.24 INDEX, BP 139/81 MM HG, HR 119 /MIN, RR 18 /MIN, TEMP 98.7 F, OXYGEN SAT % 98%, SAFE IN ENV? (Y/N) YES, NA INITIALS AW 1012, REVIEWED BY: LAURA. EXAMINATION GENERAL: THE PATIENT IS ALERT, ORIENTED TIMES THREE AND COOPERATIVE. LUNGS ARE CLEAR TO AUSCULTATION. HEART SHOWS REGULAR RHYTHM, NO MURMURS AND NO GALLOPS. TENDERENSS IN THE LOWER BACK IN THE FACET JOINTS ON THE RIGHT AND LEFT SIDE. ASSESSMENTS SPONDYLOSIS WITHOUT MYELOPATHY OR RADICULOPATHY, LUMBAR REGION - M47.816 (PRIMARY) LUMBAR FACET ARTHROPATHY - M47.816 TREATMENT SPONDYLOSIS WITHOUT MYELOPATHY OR RADICULOPATHY, LUMBAR REGION COMPLETION OF PROCEDURAL VISIT WHEN MEETS [id number],TOM 05/03/2021 12:18:15 PM > CRITERIA MET SALINE [id number] 05/03/2021 11:56:11 AM > 20G IV ACCESS OBTAINED BY SASHA ISIDRO RN @1100 SUSANNE HARTLEY 05/03/2021 11:57:08 AM > RAC NOTES: PATIENT REPORTED PAIN PRIOR TO PROCEDURE 05/03, POST PROCEDURE LAURA. OTHERS CLINICAL NOTES: PAT COMPLETED 05/02/21 Juan Miguel ALLRED RN I DISCUSSED ALTERNATIVES WITH MR. BRAR. WE AGREE ON DOING A BILATERAL DIAGNOSTIC FACET BLOCK L3-L4, L4-L5, L5-S1 #1. DEPENDING ON THE RESULTS, WE WILL TAKE IT FROM THERE. THE PATIENT REPORTS UNDERSTANDING AND AGREES WITH TE PLAN. I, BALTAZAR CUETO, DOCUMENTED THE ABOVE INFORMATION ACTING A SCRIBE FOR DR. VASQUEZ. I HAVE REVIEWED THE ABOVE DOCUMENT, WRITTEN BY BALTAZAR CUETO, MANAGER SALES TRAINING, AND I VERIFY THAT IT IS ACCURATE. PROCEDURES PAIN NURSING RECORD PROCEDURE IN ROOM 1125, PHYSICIAN IN ROOM 1127, START 1132, FINISH 1145, PHYSICIAN OUT OF ROOM 1145, OUT OF ROOM 1150, ECG NORMAL SINUS, PATIENT SHIELDED N/A, SAFETY STRAP YES, PREP BETADINE, DRESSING TEGADERM DR. VASQUEZ LOC: 1. ALERT, ORIENTED, [facility] 05/03/2021 11:33:40 AM > RESP: 1. REGULAR, NO DYSPNEA, [facility] 05/03/2021 11:33:44 AM > COLOR: 1. PINK[facility]ILIA[facility] 05/03/2021 11:33:49 AM > SKIN: 1. WARM, DRY, [facility] 05/03/2021 11:33:55 AM > POSITION: 1. PRONE[facility]ILIA[facility] 05/03/2021 11:34:00 AM > VITALS: 1130 - HR99, 98%, 153/96, R14 TBRADLEYRN 1145 - HR 98, 98%, 155/97, R14 TBRADLEYRN 1210 - HR 95, 97% 13/86, R14 TBRADLEYRN COMPLETION OF PROCEDURE APPOINTMENT: POST PAIN 0, DRESSING SITE DRY AND INTACT, IV DISCONTINUED, SITE CLEAR, CATHETER INTACT, GAIT WHEELCHAIR, TEACHING COMPLETED, PATIENT ACKNOWLEDGES UNDERSTANDING YES, PROCEDURE APPOINTMENT COMPLETED AT 1210 PN LUMBAR FACET BLOCK DIAGNOSTIC PRE PROCEDURE DIAGNOSIS LUMBAR SPONDYLOSIS, LUMBOSACRAL SPONDYLOSIS POST PROCEDURE DIAGNOSIS LUMBAR SPONDYLOSIS, LUMBOSACRAL SPONDYLOSIS PROCEDURE BILATERAL L4-L5 AND BILATERAL L5-S1 FACET BLOCK DIAGNOSTIC NUMBER [address] ANTHONY VASQUEZ ASSISTANT COACH NONE ANESTHESIA LOCAL PRE PROCEDURE NOTE THE PATIENT WITH HISTORY OF CHRONIC LOW BACK PAIN. I EVALUATED THE PATIENT AND REVIEWED THE CHART. I WENT OVER THE RISKS, ALTERNATIVES, AND BENEFITS ASSOCIATED WITH THIS PROCEDURE. THE PATIENT WOULD LIKE TO PROCEED AND GAVE CONSENT TO PERFORM THE PROCEDURE. AGREED WITH THE PATIENT, WE ARE DOING THIS PROCEDURE TO DETERMINE IF THE PATIENT IS A CANDIDATE FOR A RADIOFREQUENCY ABLATION OF THE FACETS JOINTS. THE PATIENT DENIES UNEXPLAINABLE WEIGHT LOSS, FEVER, CHILLS, OR NEW CHANGES IN URINARY OR BOWEL CONTROL. THE PATIENT IS COVID-19 NEGATIVE DESCRIPTION OF PROCEDURE THE PATIENT WAS BROUGHT TO THE PROCEDURE ROOM AND PLACED IN THE PRONE POSITION. THE LUMBOSACRAL AREA WAS CLEANED WITH CHLORAPREP SOLUTION AND DRAPED ASEPTICALLY. THE PROCEDURE WAS DONE UNDER STERILE CONDITIONS. A TIMEOUT WAS PERFORMED WHERE THE CONSENTED SITE WAS VERIFIED WITH EVERYONE IN THE ROOM. UNDER FLUOROSCOPIC GUIDANCE, TARGETS WERE SELECTED AT THE INTERSECTION OF THE RIGHT AND LEFT TRANSVERSE PROCESS OF L4, L5 AND ALA OF S1 WITH ITS RESPECTIVE SUPERIOR ARTICULAR PROCESS WITH A TARGET OF THE MEDIAN BRANCHES OF L3, L4 AND THE DORSAL RAMI OF L5. I CONFIRMED AGAIN THE SITE OF TARGET. LIDOCAINE WAS USED TO NUMB THE SKIN AND THE SUBCUTANEOUS TISSUE BELOW IT. SPINAL NEEDLE, 22-GAUGE, WAS ADVANCED UNDER FLUOROSCOPIC GUIDANCE AND FOLLOWING PATIENT FEEDBACK UNTIL THE TARGETS WERE REACHED. POSITION OF THE NEEDLES WAS VERIFIED WITH AP AND LATERAL VIEWS. AFTER PROPER POSITION OF THE NEEDLES WAS ACHIEVED, ISOVUE-M DYE 30%, 0.1 ML, WAS INJECTED AT EACH SITE SHOWING ADEQUATE SPREAD OF THE DYE. THEN, A SOLUTION OF 0.4 ML OF BUPIVACAINE 0.25% WAS INJECTED AT EACH SITE. THE MEDICATIONS WERE VERIFIED WITH THE NURSE. THERE WAS NO EVIDENCE OF BLOOD, PARESTHESIA OR CEREBROSPINAL FLUID DURING THE PROCEDURE. THE PATIENT WAS SENT TO THE RECOVERY ROOM. THE PATIENT WAS MOVING THE EXTREMITIES AND DOING WELL. THERE WERE NO COMPLICATIONS DURING THE PROCEDURE. ESTIMATED BLOOD LOSS WAS LESS THAN 5 ML. FLUOROSCOPY TIME WAS 36 SECONDS POST PROCEDURE NOTE THE PATIENT WILL DOCUMENT THE PAIN LEVEL AND RESPONSE TO THIS PROCEDURE PER PAIN DIARY. THE PATIENT WILL BE SEEN IN A FOLLOW UP IN THE NEXT FEW WEEKS. FURTHER DETERMINATION FOR THE PATIENT'S CASE WILL BE DONE AT THE NEXT VISIT. INSTRUCTIONS WERE GIVEN, QUESTIONS WERE ANSWERED, AND THE PATIENT EXPRESSED UNDERSTANDING AND AGREED WITH THE PLAN. I, BALTAZAR CUETO, DOCUMENTED THE ABOVE INFORMATION ACTING A SCRIBE FOR DR. VASQUEZ. I HAVE REVIEWED THE ABOVE DOCUMENT, WRITTEN BY BALTAZAR CUETO, MANAGER SALES TRAINING, AND I VERIFY THAT IT IS ACCURATE DIAGNOSTIC IMAGING [facility]UORO GUIDE SPINE INJECTION (PAIN)[id number] VISIT CODES PROCEDURE CODES 12208 INJ PARAVERT F JNT L/S 1 LEV, MODIFIERS: 50 [id number] INJ PARAVERT F JNT L/S 2 LEV, MODIFIERS: 50 DISPOSITION & COMMUNICATION FOLLOW UP FOLLOW UP WITH APPLIANCE MECHANIC (REASON: POST BILATERAL DIAGNOSTIC LUMBAR FACET BLOCK L4-L5, L5-S1 #1) ELECTRONICALLY SIGNED BY ANTHONY VASQUEZ MD, ON 05/06/2021 AT 02:06 PM EDT DISCLAIMER : THIS IS A VISIT SUMMARY EXTRACTED FROM THE [employer] CHART. IT IS NOT A COPY OF THE [employer] PROGRESS NOTE. MTDD
--- NOTE | 2021-05-07 01:27 | ECWPNPC ---
PATIENT NAME: JULIEN BRAR : 1955 GENDER: MALE VISIT DATE: 05/03/2021 DISCHARGE DATE: 05/03/21 1208 VISIT LOCKED DATE TIME: PHYSICIAN: ANTHONY VASQUEZ MD RESOURCE: ANTHONY VASQUEZ MD REASON FOR APPOINTMENT 1. BILATERAL DIAGNOSTIC LUMBAR FACET BLOCK L3-L4, L4-5, L5-S1 #1 HISTORY OF PRESENT ILLNESS GENERAL: 65-YEAR-OLD MALE PATIENT WITH A HISTORY OF CHRONIC LOW BACK PAIN. THE PATIENT DESCRIBES THE PAIN CONSTANT AND STEADY WITH A PAIN SCORE RANGING FROM 5-10/10. THE PAIN INCREASES WITH ACTIVITES. HE HAS PROBLEMS STANDING. FALL RISK SCREENING: SCREENING 8 FALLS IN THE LAST YEAR- WITHOUT INJURY. PAIN SCREENING: PATIENT HAS A COMPLAINT OF ACUTE OR CHRONIC PAIN :YES LOCATION OF PAIN:LOW BACK INTENSITY OF PAIN (SCALE OF 1 TO 10):7 WHAT DOES YOUR PAIN FEEL LIKE:ACHING DULL DURATION:CONTINOUS, CONSTANT, STEADY, ALL DAY PAIN IS INCREASED BY:PROLONGED STANDING PAIN IS DECREASED BY:OTHERS LAY ON SIDE NURSING NOTE: -. PAIN CENTER INTAKE QUESTIONS: DO YOU HAVE A HISTORY OF MRSA? :NO DO YOU TAKE A BLOOD THINNERS? :NO DO YOU HAVE ANY BLEEDING DISORDERS? :NO ANY NEW NUMBNESS OR WEAKNESS IN YOUR LEGS OR ARMS? :NO OCCASIONAL ANY PACEMAKER,DEFIBRILLATOR, OR DORSAL COLUMN STIMULATOR? :NO DO YOU HAVE ANY RASHES OR OPEN SORES? :NO ARE YOU ALLERGIC TO IV DYE? :NO ARE YOU DIABETIC? :NO ANY NEW PROBLEMS WITH YOUR MEDICATIONS? :NO HAVE YOU RECEIVED A VACCINE IN THE PAST 30 DAYS? :NO DO YOU PLAN TO RECEIVE A VACCINE IN THE NEXT 21 DAYS? :NO DO YOU TAKE ANY IMMUNOSUPPRESSIVE MEDICATIONS? :NO ANY HISTORY OF SEIZURES? :NO ANY HISTORY OF CARDIAC ISSUES OR EVENTS? :NO DO YOU HAVE ANY KIDNEY OR LIVER DISEASE? :NO DO YOU HAVE SLEEP APNEA? :NO ANY RECENT HEAD INJURY? :NO DO YOU HAVE ANY NEW INFECTIONS? :NO IS THERE A CHANCE YOU COULD BE ? :NO ARE YOU BREAST FEEDING? :NO WHEN DID YOU LAST EAT? : - WHEN DID YOU LAST DRINK? : - WHAT DID YOU LAST DRINK? : - NAME OF PERSON DRIVING YOU HOME? : TRANSIT DO YOU HAVE ANY OTHER QUESTIONS OR CONCERNS? : - CURRENT MEDICATIONS TAKING TIZANIDINE HCL 4 MG TABLET 1 TABLET NEEDED ORALLY THREE TIMES A DAY TAKING LAMOTRIGINE 25 MG TABLET 1 TABLET ORALLY TAKING SILDENAFIL CITRATE 20 MG TABLET 1 TABLET ORALLY ONCE A DAY TAKING DIVALPROEX SODIUM 500 MG TABLET DELAYED RELEASE 1 TABLET ORALLY THREE A DAY TAKING AMLODIPINE BESYLATE 10 MG TABLET 1 TABLET ORALLY ONCE A DAY TAKING TRAZODONE 100 100MG TABLET 1 TABLET ORAL ONCE PER DAY, NOTES: 50MG AT HS TAKING PRAVASTATIN 80 80MG TABLET 1 TABLET ORAL ONCE PER DAY TAKING LISINOPRIL 40 40 MG TABLET 1 TABLET ORAL ONCE PER DAY TAKING MAGNESIUM 250 MG TABLET ORALLY DAILY, NOTES: 400MG TAKING ESOMEPRAZOLE MAGNESIUM 40 MG CAPSULE DELAYED RELEASE 1 CAPSULE ORALLY ONCE A DAY TAKING MULTIVITAMIN ADULTS 50+ - TABLET DIRECTED ORALLY TAKING COMBIVENT RESPIMAT 20-100 MCG/ACT AEROSOL 1 PUFF INHALATION FOUR TIMES DAILY TAKING VITAMIN D TAKING ANORO ELLIPTA 62.5-25 MCG/INH AEROSOL POWDER BREATH ACTIVATED 1 PUFF INHALATION ONCE A DAY TAKING PROAIR HFA 108 (90 BASE) MCG/ACT AEROSOL SOLUTION 2 PUFFS NEEDED INHALATION EVERY 4 HRS TAKING FENOFIBRATE 145 TABLET 1 TABLET ORALLY ONCE A DAY NOT-TAKING ACAMPROSATE CALCIUM 333 MG TABLET DELAYED RELEASE 2 TABLETS ORALLY THREE TIMES A DAY NOT-TAKING TAMSULOSIN HCL 0.4 MG CAPSULE 1 CAPSULE ORALLY ONCE A DAY NOT-TAKING SPIRIVA HANDIHALER 18 MCG CAPSULE 1 CAPSULE INHALATION ONCE A DAY, NOTES: NOT SURE NOT-TAKING DEPAKOTE 500 MG TABLET DELAYED RELEASE 1 TABLET ORALLY TID NOT-TAKING SODIUM CHLORIDE 1 GM TABLET DIRECTED ORALLY BID NOT-TAKING FAMOTIDINE 40 MG TABLET 1 TABLET AT BEDTIME ORALLY ONCE A DAY NOT-TAKING CIPRO 500 MG TABLET 1 TABLET ORALLY EVERY 12 HRS NOT-TAKING SYMBICORT 160-4.5 MCG/ACT AEROSOL 2 PUFFS INHALATION TWICE A DAY NOT-TAKING LEVAQUIN 500 MG TABLET 1 TABLET ORALLY ONCE A DAY, NOTES: ONE DAY LEFT NOT-TAKING KEFLEX 500 MG CAPSULE 1 CAPSULE ORALLY EVERY 12 HRS, NOTES: FINISHED THIS AM NOT-TAKING CIALIS 20 MG TABLET 1 TABLET ORALLY NEEDED 1 HOUR PRIOR TO SEXUAL ACTIVITY UNKNOWN HYDROCHLOROTHIAZIDE 25 25 MG TABLET 1 TABLET ORAL ONCE PER DAY MEDICATION LIST REVIEWED AND RECONCILED WITH THE PATIENT PAST MEDICAL HISTORY BIPOLAR DISORDER HTN HIGH COLESTEROL COPD GERD DDD HX OF URINARY RETENTION MODERNA COVID-19 1ST: 11/17/2020 2ND: 12/15/2020 PNEUMOVAX 10/01/2020 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 CHRONIC BACK PAIN ALCOHOLISM HYPERLIPIDEMIA HYPERTENSIVE DISORDER DEPRESSION 7 FALLS THIS YEAR, HAD SOME BRUISE AND DID GO TO THE ER FOR A COUPLE OF THEM, NO MAJOR INJURIES ALLERGIES TRAMADOL HCL: NAUSEA/VOMITING - SIDE EFFECTS CHANTIX: NAUSEA/VOMITING - SIDE EFFECTS SEASONAL ALLERGIES: CAUSES WATERY & ITCHY EYES - ALLERGY SOCIAL HISTORY GENERAL: TOBACCO USE ARE YOU A:CURRENT SMOKER ARE YOU INTERESTED IN QUITTING?NOT READY TO QUIT COUNSELED THE PATIENT ON SMOKING EFFECTS, EDUCATION [id number]/30/2021 HOW MANY CIGARETTES A DAY DO YOU SMOKE?6-10 HOW SOON AFTER YOU WAKE UP DO YOU SMOKE YOUR FIRST CIGARETTE?WITHIN 5 MIN HOW OFTEN DO YOU SMOKE CIGARETTES?EVERY DAY PATIENT COUNSELED ON THE DANGERS OF TOBACCO USE AND URGED TO QUIT:04/22/2021 LATEX QUESTIONNAIRE LATEX ALLERGY : HAVE YOU EVER DEVELOPED ANY TYPE OF REACTION AFTER HANDLING LATEX PRODUCTS SUCH RUBBER GLOVES, CONDOMS, DIAPHRAGMS, BALLOONS, SOCKS, OR UNDERWEAR?NO LATEX ALLERGY : HAVE YOU EVER DEVELOPED ANY TYPE OF REACTION DURING OR AFTER DENTAL APPOINTMENT, VAGINAL/RECTAL EXAMINATION, SURGICAL PROCEDURE, OR ANY OTHER EXPOSURE?NO LATEX RISK : HAVE YOU EVER HAD ANY DIFFICULTY BREATHING OR HIVES AFTER EATING OR HANDLING ANY FRUITS, OR VEGETABLES; SUCH KIWI, BANANAS, STONE FRUITS, OR CHESTNUTSNO LATEX RISK : DO YOU HAVE A PREVIOUS PERSONAL HISTORY OF MORE THAN NINE SURGERIES, SPINA BIFIDA, OR REPEATED CATHERIZATIONS? NO LATEX RISK : ARE YOU FREQUENTLY EXPOSED TO LATEX PRODUCTS IN YOUR OCCUPATION?NO DATE ASKED : 04/22/2021 ALCOHOL USE: YES. ALCOHOL SCREENING POINTS: 7, INTERPRETATION: POSITIVE. RECREATIONAL DRUG USE ACCEDES OCCASIONAL MARAJUANA. CAFFEINE CAFFEINE USE?YES HOW OFTEN AND HOW MUCH? 2/DAY CUPS COFFEE SEXUAL HX HAD SEX IN THE LAST 12 MONTHS (VAGINAL, ORAL, OR ANAL)?: YES, WITH: WOMEN ONLY, USE PROTECTION?: NO, PREVENTION STRATEGIES DISCUSSED:: OTHER, HAVE YOU EVER HAD AN STD?: NO. CONGREGATIONAL NO SCIENTOLOGIST BELIEFS THAT WOULD IMPACT HEALTH CARE. LANGUAGE DOMINICAN. 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 OCCUPATION: DISABLED. DIET: REGULAR. EXERCISE: WALKS. MARITAL STATUS: . OTHERS AT HOME: SEPERATED. REVIEW OF SYSTEMS CONSTITUTIONAL: ANY RECENT FEVER NO . CHILLS NO . WEIGHT CHANGE OF UNKNOWN REASONS NO . GASTROENTEROLOGY: NEW UNEXPLAINABLE CHANGES IN BOWEL CONTROL NO . CONSTIPATION NO . GENITOURINARY: ANY NEW CHANGE IN BLADDER CONTROL? NO . NEUROLOGY: NEW ONSET DIZZINESS OR NEUROLOGICAL CHANGES NOT MENTIONED NO . NEW NUMBNESS OR PAIN PATTERNS NOT MENTIONED AND PERTINENT TO TODAY'S VISIT NO . CARDIOLOGY: NEW CHEST PRESSURE NO . PATIENT DENIES NO . RESPIRATORY: UNEXPLAINABLE COUGH NO . NEW SHORTNESS OF BREATH NO . VITAL SIGNS WT 220 LBS, WT-KG 99.79 KG, HT 74 IN, BMI 28.24 INDEX, BP 139/81 MM HG, HR 119 /MIN, RR 18 /MIN, TEMP 98.7 F, OXYGEN SAT % 98%, SAFE IN ENV? (Y/N) YES, NA INITIALS AW 1012, REVIEWED BY: LAURA. EXAMINATION GENERAL: THE PATIENT IS ALERT, ORIENTED TIMES THREE AND COOPERATIVE. LUNGS ARE CLEAR TO AUSCULTATION. HEART SHOWS REGULAR RHYTHM, NO MURMURS AND NO GALLOPS. TENDERENSS IN THE LOWER BACK IN THE FACET JOINTS ON THE RIGHT AND LEFT SIDE. 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 OTHERS CLINICAL NOTES: PAT COMPLETED 05/02/21 Juan Miguel ALLRED RN I DISCUSSED ALTERNATIVES WITH MR. BRAR. WE AGREE ON DOING A BILATERAL DIAGNOSTIC FACET BLOCK L3-L4, L4-L5, L5-S1 #1. DEPENDING ON THE RESULTS, WE WILL TAKE IT FROM THERE. THE PATIENT REPORTS UNDERSTANDING AND AGREES WITH TE PLAN. I, BALTAZAR CUETO, DOCUMENTED THE ABOVE INFORMATION ACTING A SCRIBE FOR DR. VASQUEZ. I HAVE REVIEWED THE ABOVE DOCUMENT, WRITTEN BY BALTAZAR CUETO, APPLICATION SPEC, AND I VERIFY THAT IT IS ACCURATE. PROCEDURES PAIN NURSING RECORD PROCEDURE IN ROOM 1125, PHYSICIAN IN ROOM 1127, START 1132, FINISH 1145, PHYSICIAN OUT OF ROOM 1145, OUT OF ROOM 1150, ECG NORMAL SINUS, PATIENT SHIELDED N/A, SAFETY STRAP YES, PREP BETADINE, DRESSING TEGADERM DR. VASQUEZ LOC: 1. ALERT, ORIENTED, [facility] 05/03/2021 11:33:40 AM > RESP: 1. REGULAR, NO DYSPNEA, OD[facility]IA,[facility] 05/03/2021 11:33:44 AM > COLOR: 1. PINKODILIA,[facility] 05/03/2021 11:33:49 AM > SKIN: 1. WARM, DRY, ODILIA,[facility] 05/03/2021 11:33:55 AM > POSITION: 1. PRONEODILIA,[facility] 05/03/2021 11:34:00 AM > VITALS: 1130 - HR99, 98%, 153/96, R14 TBRADLEYRN 1145 - HR 98, 98%, 155/97, R14 TBRADLEYRN 1210 - HR 95, 97% 13/86, R14 TBRADLEYRN COMPLETION OF PROCEDURE APPOINTMENT: POST PAIN 0, DRESSING SITE DRY AND INTACT, IV DISCONTINUED, SITE CLEAR, CATHETER INTACT, GAIT WHEELCHAIR, TEACHING COMPLETED, PATIENT ACKNOWLEDGES UNDERSTANDING YES, PROCEDURE APPOINTMENT COMPLETED AT 1210 PN LUMBAR FACET BLOCK DIAGNOSTIC PRE PROCEDURE DIAGNOSIS LUMBAR SPONDYLOSIS, LUMBOSACRAL SPONDYLOSIS POST PROCEDURE DIAGNOSIS LUMBAR SPONDYLOSIS, LUMBOSACRAL SPONDYLOSIS PROCEDURE BILATERAL L4-L5 AND BILATERAL L5-S1 FACET BLOCK DIAGNOSTIC NUMBER [address] ANTHONY VASQUEZ SWIMMING TEACHER NONE ANESTHESIA LOCAL PRE PROCEDURE NOTE THE PATIENT WITH HISTORY OF CHRONIC LOW BACK PAIN. I EVALUATED THE PATIENT AND REVIEWED THE CHART. I WENT OVER THE RISKS, ALTERNATIVES, AND BENEFITS ASSOCIATED WITH THIS PROCEDURE. THE PATIENT WOULD LIKE TO PROCEED AND GAVE CONSENT TO PERFORM THE PROCEDURE. AGREED WITH THE PATIENT, WE ARE DOING THIS PROCEDURE TO DETERMINE IF THE PATIENT IS A CANDIDATE FOR A RADIOFREQUENCY ABLATION OF THE FACETS JOINTS. THE PATIENT DENIES UNEXPLAINABLE WEIGHT LOSS, FEVER, CHILLS, OR NEW CHANGES IN URINARY OR BOWEL CONTROL. THE PATIENT IS COVID-19 NEGATIVE DESCRIPTION OF PROCEDURE THE PATIENT WAS BROUGHT TO THE PROCEDURE ROOM AND PLACED IN THE PRONE POSITION. THE LUMBOSACRAL AREA WAS CLEANED WITH CHLORAPREP SOLUTION AND DRAPED ASEPTICALLY. THE PROCEDURE WAS DONE UNDER STERILE CONDITIONS. A TIMEOUT WAS PERFORMED WHERE THE CONSENTED SITE WAS VERIFIED WITH EVERYONE IN THE ROOM. UNDER FLUOROSCOPIC GUIDANCE, TARGETS WERE SELECTED AT THE INTERSECTION OF THE RIGHT AND LEFT TRANSVERSE PROCESS OF L4, L5 AND ALA OF S1 WITH ITS RESPECTIVE SUPERIOR ARTICULAR PROCESS WITH A TARGET OF THE MEDIAN BRANCHES OF L3, L4 AND THE DORSAL RAMI OF L5. I CONFIRMED AGAIN THE SITE OF TARGET. LIDOCAINE WAS USED TO NUMB THE SKIN AND THE SUBCUTANEOUS TISSUE BELOW IT. SPINAL NEEDLE, 22-GAUGE, WAS ADVANCED UNDER FLUOROSCOPIC GUIDANCE AND FOLLOWING PATIENT FEEDBACK UNTIL THE TARGETS WERE REACHED. POSITION OF THE NEEDLES WAS VERIFIED WITH AP AND LATERAL VIEWS. AFTER PROPER POSITION OF THE NEEDLES WAS ACHIEVED, ISOVUE-M DYE 30%, 0.1 ML, WAS INJECTED AT EACH SITE SHOWING ADEQUATE SPREAD OF THE DYE. THEN, A SOLUTION OF 0.4 ML OF BUPIVACAINE 0.25% WAS INJECTED AT EACH SITE. THE MEDICATIONS WERE VERIFIED WITH THE NURSE. THERE WAS NO EVIDENCE OF BLOOD, PARESTHESIA OR CEREBROSPINAL FLUID DURING THE PROCEDURE. THE PATIENT WAS SENT TO THE RECOVERY ROOM. THE PATIENT WAS MOVING THE EXTREMITIES AND DOING WELL. THERE WERE NO COMPLICATIONS DURING THE PROCEDURE. ESTIMATED BLOOD LOSS WAS LESS THAN 5 ML. FLUOROSCOPY TIME WAS 36 SECONDS POST PROCEDURE NOTE THE PATIENT WILL DOCUMENT THE PAIN LEVEL AND RESPONSE TO THIS PROCEDURE PER PAIN DIARY. THE PATIENT WILL BE SEEN IN A FOLLOW UP IN THE NEXT FEW WEEKS. FURTHER DETERMINATION FOR THE PATIENT'S CASE WILL BE DONE AT THE NEXT VISIT. INSTRUCTIONS WERE GIVEN, QUESTIONS WERE ANSWERED, AND THE PATIENT EXPRESSED UNDERSTANDING AND AGREED WITH THE PLAN. I, BALTAZAR CUETO, DOCUMENTED THE ABOVE INFORMATION ACTING A SCRIBE FOR DR. VASQUEZ. I HAVE REVIEWED THE ABOVE DOCUMENT, WRITTEN BY BALTAZAR CUETO, APPLICATION SPEC, AND I VERIFY THAT IT IS ACCURATE DIAGNOSTIC IMAGING [facility] FLUORO GUIDE SPINE INJECTION (PAIN)[id number] VISIT CODES PROCEDURE CODES 28297 INJ PARAVERT F JNT L/S 1 LEV, MODIFIERS: 50 [id number] INJ PARAVERT F JNT L/S 2 LEV, MODIFIERS: 50 DISPOSITION & COMMUNICATION FOLLOW UP FOLLOW UP WITH [facility] (REASON: POST BILATERAL DIAGNOSTIC LUMBAR FACET BLOCK L4-L5, L5-S1 #1) ELECTRONICALLY SIGNED BY ANTHONY VASQUEZ MD, ON 05/06/2021 AT 02:06 PM EDT DISCLAIMER : THIS IS A VISIT SUMMARY EXTRACTED FROM THE [employer] CHART. IT IS NOT A COPY OF THE [employer] PROGRESS NOTE. MTDD
--- NOTE | 2021-05-07 01:29 | ECWPNPC ---
PATIENT NAME: JULIEN BRAR : 1955 GENDER: MALE VISIT DATE: 05/03/2021 DISCHARGE DATE: 05/03/21 1208 VISIT LOCKED DATE TIME: PHYSICIAN: ANTHONY VASQUEZ MD RESOURCE: ANTHONY VASQUEZ MD REASON FOR APPOINTMENT 1. BILATERAL DIAGNOSTIC LUMBAR FACET BLOCK L3-L4, L4-5, L5-S1 #1 HISTORY OF PRESENT ILLNESS GENERAL: 65-YEAR-OLD MALE PATIENT WITH A HISTORY OF CHRONIC LOW BACK PAIN. THE PATIENT DESCRIBES THE PAIN CONSTANT AND STEADY WITH A PAIN SCORE RANGING FROM 5-10/10. THE PAIN INCREASES WITH ACTIVITES. HE HAS PROBLEMS STANDING. FALL RISK SCREENING: SCREENING 8 FALLS IN THE LAST YEAR- WITHOUT INJURY. PAIN SCREENING: PATIENT HAS A COMPLAINT OF ACUTE OR CHRONIC PAIN :YES LOCATION OF PAIN:LOW BACK INTENSITY OF PAIN (SCALE OF 1 TO 10):7 WHAT DOES YOUR PAIN FEEL LIKE:ACHING DULL DURATION:CONTINOUS, CONSTANT, STEADY, ALL DAY PAIN IS INCREASED BY:PROLONGED STANDING PAIN IS DECREASED BY:OTHERS LAY ON SIDE NURSING NOTE: -. PAIN CENTER INTAKE QUESTIONS: DO YOU HAVE A HISTORY OF MRSA? :NO DO YOU TAKE A BLOOD THINNERS? :NO DO YOU HAVE ANY BLEEDING DISORDERS? :NO ANY NEW NUMBNESS OR WEAKNESS IN YOUR LEGS OR ARMS? :NO OCCASIONAL ANY PACEMAKER,DEFIBRILLATOR, OR DORSAL COLUMN STIMULATOR? :NO DO YOU HAVE ANY RASHES OR OPEN SORES? :NO ARE YOU ALLERGIC TO IV DYE? :NO ARE YOU DIABETIC? :NO ANY NEW PROBLEMS WITH YOUR MEDICATIONS? :NO HAVE YOU RECEIVED A VACCINE IN THE PAST 30 DAYS? :NO DO YOU PLAN TO RECEIVE A VACCINE IN THE NEXT 21 DAYS? :NO DO YOU TAKE ANY IMMUNOSUPPRESSIVE MEDICATIONS? :NO ANY HISTORY OF SEIZURES? :NO ANY HISTORY OF CARDIAC ISSUES OR EVENTS? :NO DO YOU HAVE ANY KIDNEY OR LIVER DISEASE? :NO DO YOU HAVE SLEEP APNEA? :NO ANY RECENT HEAD INJURY? :NO DO YOU HAVE ANY NEW INFECTIONS? :NO IS THERE A CHANCE YOU COULD BE ? :NO ARE YOU BREAST FEEDING? :NO WHEN DID YOU LAST EAT? : - WHEN DID YOU LAST DRINK? : - WHAT DID YOU LAST DRINK? : - NAME OF PERSON DRIVING YOU HOME? : TRANSIT DO YOU HAVE ANY OTHER QUESTIONS OR CONCERNS? : - CURRENT MEDICATIONS TAKING TIZANIDINE HCL 4 MG TABLET 1 TABLET NEEDED ORALLY THREE TIMES A DAY TAKING LAMOTRIGINE 25 MG TABLET 1 TABLET ORALLY TAKING SILDENAFIL CITRATE 20 MG TABLET 1 TABLET ORALLY ONCE A DAY TAKING DIVALPROEX SODIUM 500 MG TABLET DELAYED RELEASE 1 TABLET ORALLY THREE A DAY TAKING AMLODIPINE BESYLATE 10 MG TABLET 1 TABLET ORALLY ONCE A DAY TAKING TRAZODONE 100 100MG TABLET 1 TABLET ORAL ONCE PER DAY, NOTES: 50MG AT HS TAKING PRAVASTATIN 80 80MG TABLET 1 TABLET ORAL ONCE PER DAY TAKING LISINOPRIL 40 40 MG TABLET 1 TABLET ORAL ONCE PER DAY TAKING MAGNESIUM 250 MG TABLET ORALLY DAILY, NOTES: 400MG TAKING ESOMEPRAZOLE MAGNESIUM 40 MG CAPSULE DELAYED RELEASE 1 CAPSULE ORALLY ONCE A DAY TAKING MULTIVITAMIN ADULTS 50+ - TABLET DIRECTED ORALLY TAKING COMBIVENT RESPIMAT 20-100 MCG/ACT AEROSOL 1 PUFF INHALATION FOUR TIMES DAILY TAKING VITAMIN D TAKING ANORO ELLIPTA 62.5-25 MCG/INH AEROSOL POWDER BREATH ACTIVATED 1 PUFF INHALATION ONCE A DAY TAKING PROAIR HFA 108 (90 BASE) MCG/ACT AEROSOL SOLUTION 2 PUFFS NEEDED INHALATION EVERY 4 HRS TAKING FENOFIBRATE 145 TABLET 1 TABLET ORALLY ONCE A DAY NOT-TAKING ACAMPROSATE CALCIUM 333 MG TABLET DELAYED RELEASE 2 TABLETS ORALLY THREE TIMES A DAY NOT-TAKING TAMSULOSIN HCL 0.4 MG CAPSULE 1 CAPSULE ORALLY ONCE A DAY NOT-TAKING SPIRIVA HANDIHALER 18 MCG CAPSULE 1 CAPSULE INHALATION ONCE A DAY, NOTES: NOT SURE NOT-TAKING DEPAKOTE 500 MG TABLET DELAYED RELEASE 1 TABLET ORALLY TID NOT-TAKING SODIUM CHLORIDE 1 GM TABLET DIRECTED ORALLY BID NOT-TAKING FAMOTIDINE 40 MG TABLET 1 TABLET AT BEDTIME ORALLY ONCE A DAY NOT-TAKING CIPRO 500 MG TABLET 1 TABLET ORALLY EVERY 12 HRS NOT-TAKING SYMBICORT 160-4.5 MCG/ACT AEROSOL 2 PUFFS INHALATION TWICE A DAY NOT-TAKING LEVAQUIN 500 MG TABLET 1 TABLET ORALLY ONCE A DAY, NOTES: ONE DAY LEFT NOT-TAKING KEFLEX 500 MG CAPSULE 1 CAPSULE ORALLY EVERY 12 HRS, NOTES: FINISHED THIS AM NOT-TAKING CIALIS 20 MG TABLET 1 TABLET ORALLY NEEDED 1 HOUR PRIOR TO SEXUAL ACTIVITY UNKNOWN HYDROCHLOROTHIAZIDE 25 25 MG TABLET 1 TABLET ORAL ONCE PER DAY MEDICATION LIST REVIEWED AND RECONCILED WITH THE PATIENT PAST MEDICAL HISTORY BIPOLAR DISORDER HTN HIGH COLESTEROL COPD GERD DDD HX OF URINARY RETENTION MODERNA COVID-19 1ST: 11/17/2020 2ND: 12/15/2020 PNEUMOVAX 10/01/2020 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 CHRONIC BACK PAIN ALCOHOLISM HYPERLIPIDEMIA HYPERTENSIVE DISORDER DEPRESSION 7 FALLS THIS YEAR, HAD SOME BRUISE AND DID GO TO THE ER FOR A COUPLE OF THEM, NO MAJOR INJURIES ALLERGIES TRAMADOL HCL: NAUSEA/VOMITING - SIDE EFFECTS CHANTIX: NAUSEA/VOMITING - SIDE EFFECTS SEASONAL ALLERGIES: CAUSES WATERY & ITCHY EYES - ALLERGY SOCIAL HISTORY GENERAL: TOBACCO USE ARE YOU A:CURRENT SMOKER ARE YOU INTERESTED IN QUITTING?NOT READY TO QUIT COUNSELED THE PATIENT ON SMOKING EFFECTS, EDUCATION ORBETRWA64/30/2021 HOW MANY CIGARETTES A DAY DO YOU SMOKE?6-10 HOW SOON AFTER YOU WAKE UP DO YOU SMOKE YOUR FIRST CIGARETTE?WITHIN 5 MIN HOW OFTEN DO YOU SMOKE CIGARETTES?EVERY DAY PATIENT COUNSELED ON THE DANGERS OF TOBACCO USE AND URGED TO QUIT:04/22/2021 LATEX QUESTIONNAIRE LATEX ALLERGY : HAVE YOU EVER DEVELOPED ANY TYPE OF REACTION AFTER HANDLING LATEX PRODUCTS SUCH RUBBER GLOVES, CONDOMS, DIAPHRAGMS, BALLOONS, SOCKS, OR UNDERWEAR?NO LATEX ALLERGY : HAVE YOU EVER DEVELOPED ANY TYPE OF REACTION DURING OR AFTER DENTAL APPOINTMENT, VAGINAL/RECTAL EXAMINATION, SURGICAL PROCEDURE, OR ANY OTHER EXPOSURE?NO LATEX RISK : HAVE YOU EVER HAD ANY DIFFICULTY BREATHING OR HIVES AFTER EATING OR HANDLING ANY FRUITS, OR VEGETABLES; SUCH KIWI, BANANAS, STONE FRUITS, OR CHESTNUTSNO LATEX RISK : DO YOU HAVE A PREVIOUS PERSONAL HISTORY OF MORE THAN NINE SURGERIES, SPINA BIFIDA, OR REPEATED CATHERIZATIONS? NO LATEX RISK : ARE YOU FREQUENTLY EXPOSED TO LATEX PRODUCTS IN YOUR OCCUPATION?NO DATE ASKED : 04/22/2021 ALCOHOL USE: YES. ALCOHOL SCREENING POINTS: 7, INTERPRETATION: POSITIVE. RECREATIONAL DRUG USE ACCEDES OCCASIONAL MARAJUANA. CAFFEINE CAFFEINE USE?YES HOW OFTEN AND HOW MUCH? 2/DAY CUPS COFFEE SEXUAL HX HAD SEX IN THE LAST 12 MONTHS (VAGINAL, ORAL, OR ANAL)?: YES, WITH: WOMEN ONLY, USE PROTECTION?: NO, PREVENTION STRATEGIES DISCUSSED:: OTHER, HAVE YOU EVER HAD AN STD?: NO. EVANGELICAL NO CATHOLIC BELIEFS THAT WOULD IMPACT HEALTH CARE. LANGUAGE [place]. LEARNING BARRIERS / SPECIAL NEEDS CHANGE FROM LAST VISIT?YES BARRIERS TO LEARNING?YES HEARING IMPAIRED?YES :HEARING AIDES VISION IMPAIRED?NO COGNITIVELY IMPAIRED?YES :MENTAL RETARDATION READINESS TO LEARN?YES LEARNING PREFERENCES?YES :DEMONSTRATION/VERBAL INSTRUCTION LEARNING CAPABILITIES PRESENT?YES EMOTIONAL BARRIERS?YES COMMENTS DEPRESSION SPECIAL DEVICES?YES :WALKER, WHEELCHAIR FIRE ASSISTANT NEEDED?NO DOMESTIC VIOLENCE NONE. OCCUPATION: DISABLED. DIET: REGULAR. EXERCISE: WALKS. MARITAL STATUS: . OTHERS AT HOME: SEPERATED. REVIEW OF SYSTEMS CONSTITUTIONAL: ANY RECENT FEVER NO . CHILLS NO . WEIGHT CHANGE OF UNKNOWN REASONS NO . GASTROENTEROLOGY: NEW UNEXPLAINABLE CHANGES IN BOWEL CONTROL NO . CONSTIPATION NO . GENITOURINARY: ANY NEW CHANGE IN BLADDER CONTROL? NO . NEUROLOGY: NEW ONSET DIZZINESS OR NEUROLOGICAL CHANGES NOT MENTIONED NO . NEW NUMBNESS OR PAIN PATTERNS NOT MENTIONED AND PERTINENT TO TODAY'S VISIT NO . CARDIOLOGY: NEW CHEST PRESSURE NO . PATIENT DENIES NO . RESPIRATORY: UNEXPLAINABLE COUGH NO . NEW SHORTNESS OF BREATH NO . VITAL SIGNS WT 220 LBS, WT-KG 99.79 KG, HT 74 IN, BMI 28.24 INDEX, BP 139/81 MM HG, HR 119 /MIN, RR 18 /MIN, TEMP 98.7 F, OXYGEN SAT % 98%, SAFE IN ENV? (Y/N) YES, NA INITIALS AW 1012, REVIEWED BY: LAURA. EXAMINATION GENERAL: THE PATIENT IS ALERT, ORIENTED TIMES THREE AND COOPERATIVE. LUNGS ARE CLEAR TO AUSCULTATION. HEART SHOWS REGULAR RHYTHM, NO MURMURS AND NO GALLOPS. TENDERENSS IN THE LOWER BACK IN THE FACET JOINTS ON THE RIGHT AND LEFT SIDE. ASSESSMENTS SPONDYLOSIS WITHOUT MYELOPATHY OR RADICULOPATHY, LUMBAR REGION - M47.816 (PRIMARY) LUMBAR FACET ARTHROPATHY - M47.816 TREATMENT SPONDYLOSIS WITHOUT MYELOPATHY OR RADICULOPATHY, LUMBAR REGION COMPLETION OF PROCEDURAL VISIT WHEN MEETS [id number],TOM 05/03/2021 12:18:15 PM > CRITERIA MET SALINE [id number],TOM 05/03/2021 11:56:11 AM > 20G IV ACCESS OBTAINED BY SASHA ISIDRO RN @1100 SUSANNE HARTLEY 05/03/2021 11:57:08 AM > RAC NOTES: PATIENT REPORTED PAIN PRIOR TO PROCEDURE 05/03, POST PROCEDURE LAURA. OTHERS CLINICAL NOTES: PAT COMPLETED 05/02/21 Juan Miguel ALLRED RN I DISCUSSED ALTERNATIVES WITH MR. BRAR. WE AGREE ON DOING A BILATERAL DIAGNOSTIC FACET BLOCK L3-L4, L4-L5, L5-S1 #1. DEPENDING ON THE RESULTS, WE WILL TAKE IT FROM THERE. THE PATIENT REPORTS UNDERSTANDING AND AGREES WITH TE PLAN. I, BALTAZAR CUETO, DOCUMENTED THE ABOVE INFORMATION ACTING A SCRIBE FOR DR. VASQUEZ. I HAVE REVIEWED THE ABOVE DOCUMENT, WRITTEN BY BALTAZAR CUETO, RECRUITER, AND I VERIFY THAT IT IS ACCURATE. PROCEDURES PAIN NURSING RECORD PROCEDURE IN ROOM 1125, PHYSICIAN IN ROOM 1127, START 1132, FINISH 1145, PHYSICIAN OUT OF ROOM 1145, OUT OF ROOM 1150, ECG NORMAL SINUS, PATIENT SHIELDED N/A, SAFETY STRAP YES, PREP BETADINE, DRESSING TEGADERM DR. VASQUEZ LOC: 1. ALERT, ORIENTED, [facility] 05/03/2021 11:33:40 AM > RESP: 1. REGULAR, NO DYSPNEA, [facility] 05/03/2021 11:33:44 AM > COLOR: 1. [facility]INK[facility] 05/03/2021 11:33:49 AM > SKIN: 1. WARM, DRY, [facility] 05/03/2021 11:33:55 AM > POSITION: 1. [facility] 05/03/2021 11:34:00 AM > VITALS: 1130 - HR99, 98%, 153/96, R14 TBRADLEYRN 1145 - HR 98, 98%, 155/97, R14 TBRADLEYRN 1210 - HR 95, 97% 13/86, R14 TBRADLEYRN COMPLETION OF PROCEDURE APPOINTMENT: POST PAIN 0, DRESSING SITE DRY AND INTACT, IV DISCONTINUED, SITE CLEAR, CATHETER INTACT, GAIT WHEELCHAIR, TEACHING COMPLETED, PATIENT ACKNOWLEDGES UNDERSTANDING YES, PROCEDURE APPOINTMENT COMPLETED AT 1210 PN LUMBAR FACET BLOCK DIAGNOSTIC PRE PROCEDURE DIAGNOSIS LUMBAR SPONDYLOSIS, LUMBOSACRAL SPONDYLOSIS POST PROCEDURE DIAGNOSIS LUMBAR SPONDYLOSIS, LUMBOSACRAL SPONDYLOSIS PROCEDURE BILATERAL L4-L5 AND BILATERAL L5-S1 FACET BLOCK DIAGNOSTIC NUMBER [address] ANTHONY VASQUEZ TEST FIXTURE ASSEMBLER NONE ANESTHESIA LOCAL PRE PROCEDURE NOTE THE PATIENT WITH HISTORY OF CHRONIC LOW BACK PAIN. I EVALUATED THE PATIENT AND REVIEWED THE CHART. I WENT OVER THE RISKS, ALTERNATIVES, AND BENEFITS ASSOCIATED WITH THIS PROCEDURE. THE PATIENT WOULD LIKE TO PROCEED AND GAVE CONSENT TO PERFORM THE PROCEDURE. AGREED WITH THE PATIENT, WE ARE DOING THIS PROCEDURE TO DETERMINE IF THE PATIENT IS A CANDIDATE FOR A RADIOFREQUENCY ABLATION OF THE FACETS JOINTS. THE PATIENT DENIES UNEXPLAINABLE WEIGHT LOSS, FEVER, CHILLS, OR NEW CHANGES IN URINARY OR BOWEL CONTROL. THE PATIENT IS COVID-19 NEGATIVE DESCRIPTION OF PROCEDURE THE PATIENT WAS BROUGHT TO THE PROCEDURE ROOM AND PLACED IN THE PRONE POSITION. THE LUMBOSACRAL AREA WAS CLEANED WITH CHLORAPREP SOLUTION AND DRAPED ASEPTICALLY. THE PROCEDURE WAS DONE UNDER STERILE CONDITIONS. A TIMEOUT WAS PERFORMED WHERE THE CONSENTED SITE WAS VERIFIED WITH EVERYONE IN THE ROOM. UNDER FLUOROSCOPIC GUIDANCE, TARGETS WERE SELECTED AT THE INTERSECTION OF THE RIGHT AND LEFT TRANSVERSE PROCESS OF L4, L5 AND ALA OF S1 WITH ITS RESPECTIVE SUPERIOR ARTICULAR PROCESS WITH A TARGET OF THE MEDIAN BRANCHES OF L3, L4 AND THE DORSAL RAMI OF L5. I CONFIRMED AGAIN THE SITE OF TARGET. LIDOCAINE WAS USED TO NUMB THE SKIN AND THE SUBCUTANEOUS TISSUE BELOW IT. SPINAL NEEDLE, 22-GAUGE, WAS ADVANCED UNDER FLUOROSCOPIC GUIDANCE AND FOLLOWING PATIENT FEEDBACK UNTIL THE TARGETS WERE REACHED. POSITION OF THE NEEDLES WAS VERIFIED WITH AP AND LATERAL VIEWS. AFTER PROPER POSITION OF THE NEEDLES WAS ACHIEVED, ISOVUE-M DYE 30%, 0.1 ML, WAS INJECTED AT EACH SITE SHOWING ADEQUATE SPREAD OF THE DYE. THEN, A SOLUTION OF 0.4 ML OF BUPIVACAINE 0.25% WAS INJECTED AT EACH SITE. THE MEDICATIONS WERE VERIFIED WITH THE NURSE. THERE WAS NO EVIDENCE OF BLOOD, PARESTHESIA OR CEREBROSPINAL FLUID DURING THE PROCEDURE. THE PATIENT WAS SENT TO THE RECOVERY ROOM. THE PATIENT WAS MOVING THE EXTREMITIES AND DOING WELL. THERE WERE NO COMPLICATIONS DURING THE PROCEDURE. ESTIMATED BLOOD LOSS WAS LESS THAN 5 ML. FLUOROSCOPY TIME WAS 36 SECONDS POST PROCEDURE NOTE THE PATIENT WILL DOCUMENT THE PAIN LEVEL AND RESPONSE TO THIS PROCEDURE PER PAIN DIARY. THE PATIENT WILL BE SEEN IN A FOLLOW UP IN THE NEXT FEW WEEKS. FURTHER DETERMINATION FOR THE PATIENT'S CASE WILL BE DONE AT THE NEXT VISIT. INSTRUCTIONS WERE GIVEN, QUESTIONS WERE ANSWERED, AND THE PATIENT EXPRESSED UNDERSTANDING AND AGREED WITH THE PLAN. I, BALTAZAR CUETO, DOCUMENTED THE ABOVE INFORMATION ACTING A SCRIBE FOR DR. VASQUEZ. I HAVE REVIEWED THE ABOVE DOCUMENT, WRITTEN BY BALTAZAR CUETO, RECRUITER, AND I VERIFY THAT IT IS ACCURATE DIAGNOSTIC IMAGING [facility] FLUORO GUIDE SPINE INJECTION (PAIN)[id number] VISIT CODES PROCEDURE CODES 71987 INJ PARAVERT F JNT L/S 1 LEV, MODIFIERS: 50 31371 INJ PARAVERT F JNT L/S 2 LEV, MODIFIERS: 50 DISPOSITION & COMMUNICATION FOLLOW UP FOLLOW UP WITH FACILITIES CLERK (REASON: POST BILATERAL DIAGNOSTIC LUMBAR FACET BLOCK L4-L5, L5-S1 #1) ELECTRONICALLY SIGNED BY ANTHONY VASQUEZ MD, ON 05/06/2021 AT 02:06 PM EDT DISCLAIMER : THIS IS A VISIT SUMMARY EXTRACTED FROM THE [employer] CHART. IT IS NOT A COPY OF THE [employer] PROGRESS NOTE. MTDD
== END ==
LOC: M PAIN 10:00
PROVIDERS: ATTEND Anesthesiology
DX: M47.816 Spondylosis without myelopathy or radiculopathy, lumbar region (principal); G89.29 Other chronic pain; J44.9 Chronic obstructive pulmonary disease, unspecified; K21.9 Gastro-esophageal reflux disease without esophagitis; F17.210 Nicotine dependence, cigarettes, uncomplicated; Z86.59 Personal history of other mental and behavioral disorders; Z88.5 Allergy status to narcotic agent; Z88.8 Allergy status to other drugs, medicaments and biological substances; Z79.51 Long term (current) use of inhaled steroids; Z79.899 Other long term (current) drug therapy
CPT/HCPCS: 64493; 64494; Q9967

== ENCOUNTER → 2021-07-01 | Outpatient (CLI) | payer MEDICARE, MEDICAID ==
[~2021-07-01] MED LIST changes: -BUPIVACAINE HCL 0.25% 30ML VIAL As Ordered ONE; -ISOVUE-M 300 61% 15ML VIAL As Ordered ONE; -LIDOCAINE 1% SDV 30ML VIAL As Ordered ONE; -VITAD400CA FT; +VITAD400CA PO
== END ==
LOC: M LABSMTC 10:20
PROVIDERS: ATTEND Anesthesiology
DX: Z20.828 Contact with and (suspected) exposure to other viral communicable diseases (principal); Z11.52 Encounter for screening for COVID-19

== ENCOUNTER 2021-07-06 09:18 | Day surgery (SDC) | payer MEDICARE, MEDICAID ==
[~2021-07-06] VITALS: Ht 188 cm; Wt 104.3 kg
[~2021-07-06 09:18] MED LIST changes: +LIDOCAINE 2% 100MG/5ML SDV (FOR ANES.) As Ordered ONE; +NS 1,000 ML IV ONE; +propofoL 200 MG/20 ML VIAL As Ordered ONE
[2021-07-06] MEDS ORDERED: propofoL 200 MG/20 ML VIAL As Ordered ONE (11:46)
--- NOTE | 2021-07-06 11:57 | ROOR ---
Patient Name: Levi Siegel Procedure Date: 07/06/2021 11:26 AM Date of : 1955 Age: 66 Room: [facility] Gender: Male Note Status: Finalized Procedure: Colonoscopy Indications: Screening for colorectal malignant neoplasm Providers: DO Jose Estevez MD: Justus Guevara Requesting Provider: Medicines: Propofol per Anesthesia Complications: No immediate complications. Procedure: Pre-Anesthesia Assessment: - Prior to the procedure, a History and Physical was performed, and patient medications and allergies were reviewed. The patient is competent. The risks and benefits of the procedure and the sedation options and risks were discussed with the patient. All questions were answered and informed consent was obtained. Patient identification and proposed procedure were verified by the physician, the nurse, the community educator and the ultrasound technician in the endoscopy suite. Mental Status Examination: alert and oriented. Airway Examination: normal oropharyngeal airway and neck mobility. Respiratory Examination: clear to auscultation. CV Examination: normal. Prophylactic Antibiotics: The patient does not require prophylactic antibiotics. Prior Anticoagulants: The patient has taken no previous anticoagulant or antiplatelet agents. ASA Grade Assessment: II - A patient with mild systemic disease. After reviewing the risks and benefits, the patient was deemed in satisfactory condition to undergo the procedure. The anesthesia plan was to use monitored anesthesia care (MAC). Immediately prior to administration of medications, the patient was re-assessed for adequacy to receive sedatives. The heart rate, respiratory rate, oxygen saturations, blood pressure, adequacy of pulmonary ventilation, and response to care were monitored throughout the procedure. The physical status of the patient was re-assessed after the procedure. The Colonoscope was introduced through the anus and advanced to the cecum, identified by appendiceal orifice and ileocecal valve. The colonoscopy was performed without difficulty. The patient tolerated the procedure well. Findings: Non-bleeding internal hemorrhoids were found during retroflexion. The hemorrhoids were mild and Grade I (internal hemorrhoids that do not prolapse). Multiple small and large-mouthed diverticula were found in the sigmoid colon. Impression: - Non-bleeding internal hemorrhoids. - Diverticulosis in the sigmoid colon. - No specimens collected. Recommendation: - Patient has a contact number available for emergencies. The signs and symptoms of potential delayed complications were discussed with the patient. Return to normal activities tomorrow. Written discharge instructions were provided to the patient. - Repeat colonoscopy in 5-10 years for screening purposes. - Return to my office PRN. Procedure Code(s): --- Professional --- G0121, Colorectal cancer screening; colonoscopy on individual not meeting criteria for high risk Diagnosis Code(s): --- Professional --- Z12.11, Encounter for screening for malignant neoplasm of colon K64.0, First degree hemorrhoids K57.30, Diverticulosis of large intestine without perforation or abscess without bleeding CPT copyright 2019 [employer]. All rights reserved. The codes documented in this report are preliminary and upon information coder review may be revised to meet current compliance requirements. Ronan Camp DO 07/06/2021 11:57:02 AM Electronically signed by Ronan Camp DO Number of Addenda: 0 Note Initiated On: 07/06/2021 11:26 AM Estimated Blood Loss: Estimated blood loss: none.
[2021-07-06 12:20] VITALS: BP 151/88
== END 2021-07-06 12:30 | disposition home or self-care (01) ==
LOC: M OPP 09:18
PROVIDERS: ATTEND Surgery
DX: Z12.11 Encounter for screening for malignant neoplasm of colon (principal); K57.30 Diverticulosis of large intestine without perforation or abscess without bleeding; K64.0 First degree hemorrhoids; Z79.82 Long term (current) use of aspirin; Z79.899 Other long term (current) drug therapy; Z88.5 Allergy status to narcotic agent; Z88.8 Allergy status to other drugs, medicaments and biological substances; Z80.1 Family history of malignant neoplasm of trachea, bronchus and lung

== ENCOUNTER → 2021-12-07 | Outpatient (CLI) | payer MEDICARE, MEDICAID ==
[~2021-12-07] MED LIST changes: -LIDOCAINE 2% 100MG/5ML SDV (FOR ANES.) As Ordered ONE; -NS 1,000 ML IV ONE; +TIZA10TA; -TIZA4TAB4; -propofoL 200 MG/20 ML VIAL As Ordered ONE
== END ==
LOC: M PAIN 09:30
PROVIDERS: ATTEND Anesthesiology
DX: M79.18 Myalgia, other site (principal); J44.9 Chronic obstructive pulmonary disease, unspecified; K21.9 Gastro-esophageal reflux disease without esophagitis; Z86.59 Personal history of other mental and behavioral disorders; Z88.5 Allergy status to narcotic agent; Z88.8 Allergy status to other drugs, medicaments and biological substances; Z79.899 Other long term (current) drug therapy

== ENCOUNTER → 2022-04-16 | Outpatient (CLI) | payer MEDICARE, MEDICAID | LOC: M LABSMTC 08:47 | PROVIDERS: ATTEND Anesthesiology | DX: Z01.818 Encounter for other preprocedural examination (principal); Z11.52 Encounter for screening for COVID-19 ==

== ENCOUNTER → 2022-04-18 | Outpatient (CLI) | payer MEDICARE, MEDICAID ==
[~2022-04-18] MED LIST changes: +BUPIVACAINE HCL 0.25% 10ML VIAL As Ordered ONE; +BUPIVACAINE HCL 0.25% 30ML VIAL As Ordered ONE; +LIDO5DIS41 TD; +METH-1165 PO; +TRIAMCINOLONE ACETONIDE SUSP 40 MG/ML VIAL (J3301) As Ordered ONE; +diazePAM 2 MG TAB As Ordered ONE; +oxyCODONE 5MG TAB As Ordered ONE
== END ==
LOC: M PAIN 14:00
PROVIDERS: ATTEND Anesthesiology
DX: M79.18 Myalgia, other site (principal); G89.29 Other chronic pain; J44.9 Chronic obstructive pulmonary disease, unspecified; K21.9 Gastro-esophageal reflux disease without esophagitis; F17.210 Nicotine dependence, cigarettes, uncomplicated; Z86.59 Personal history of other mental and behavioral disorders; Z88.5 Allergy status to narcotic agent; Z88.8 Allergy status to other drugs, medicaments and biological substances; Z79.51 Long term (current) use of inhaled steroids; Z79.899 Other long term (current) drug therapy
CPT/HCPCS: 20552; J3301

== ENCOUNTER 2022-04-20 16:08 | Emergency (ER) | payer MEDICARE, MEDICAID ==
[~2022-04-20] VITALS: Ht 188 cm; Wt 111.4 kg
[~2022-04-20 16:08] MED LIST changes: -BUPIVACAINE HCL 0.25% 10ML VIAL As Ordered ONE; -BUPIVACAINE HCL 0.25% 30ML VIAL As Ordered ONE; -LIDO5DIS41 TD; -METH-1165 PO; -TRIAMCINOLONE ACETONIDE SUSP 40 MG/ML VIAL (J3301) As Ordered ONE; -diazePAM 2 MG TAB As Ordered ONE; -oxyCODONE 5MG TAB As Ordered ONE
[2022-04-20] MEDS ORDERED: methocarbamoL 750 MG TAB PO ONE (17:40)
[2022-04-20] MEDS ORDERED: KETOROLAC 60MG 2ML VIAL IM ONE (17:40)
[2022-04-20] MEDS ORDERED: LIDO5DIS41 TD (18:49)
[2022-04-20] MEDS ORDERED: METH-1165 PO (18:49)
[2022-04-20 18:57] VITALS: BP 139/93
== END 2022-04-20 18:59 | disposition home or self-care (01) ==
LOC: M ED 16:08 → EDBD 16:08 → SMC HOSP 16:08 → M ED 18:59
DX: M62.830 Muscle spasm of back (principal); I10 Essential (primary) hypertension; J44.9 Chronic obstructive pulmonary disease, unspecified; E78.5 Hyperlipidemia, unspecified; F31.9 Bipolar disorder, unspecified; K21.9 Gastro-esophageal reflux disease without esophagitis; Z88.1 Allergy status to other antibiotic agents; Z88.5 Allergy status to narcotic agent; Z79.899 Other long term (current) drug therapy; F17.210 Nicotine dependence, cigarettes, uncomplicated
CPT/HCPCS: 96372; 99284; J1885

== ENCOUNTER → 2022-05-31 | Outpatient (CLI) | payer MEDICARE, MEDICAID ==
[~2022-05-31] MED LIST changes: +LIDO5DIS41 TD; +METH-1165 PO
== END ==
LOC: M PAIN 10:30
PROVIDERS: ATTEND Nurse Practitioner Family
DX: M79.10 Myalgia, unspecified site (principal); G89.29 Other chronic pain; M47.816 Spondylosis without myelopathy or radiculopathy, lumbar region; I10 Essential (primary) hypertension; J44.9 Chronic obstructive pulmonary disease, unspecified; K21.9 Gastro-esophageal reflux disease without esophagitis; F17.210 Nicotine dependence, cigarettes, uncomplicated; Z86.59 Personal history of other mental and behavioral disorders; Z88.5 Allergy status to narcotic agent; Z88.8 Allergy status to other drugs, medicaments and biological substances; Z79.899 Other long term (current) drug therapy

== ENCOUNTER 2022-09-03 18:46 | Emergency (ER) | payer MEDICARE, MEDICAID ==
[~2022-09-03] VITALS: Ht 188 cm; Wt 106.8 kg
[2022-09-03 20:21] LABS: AMPHETAMINES LEVEL URINE NEGATIVE (NEGATIVE); BARBITURATES URINE NEGATIVE (NEGATIVE); BENZODIAZEPINES URINE NEGATIVE (NEGATIVE); COCAINE METABOLITE URINE NEGATIVE (NEGATIVE); METHADONE URINE NEGATIVE (NEGATIVE); OPIATES URINE NEGATIVE (NEGATIVE); PHENCYCLIDINE URINE NEGATIVE (NEGATIVE)
[2022-09-03 20:22] LABS: CANNABINOIDS URINE POSITIVE (NEGATIVE)
[2022-09-03 20:30] LABS: HEMATOCRIT 39.1 % (42.0-52.0); HEMOGLOBIN 13.7 g/dl (13.5-17.5); MEAN CORPUSCULAR HEMOGLOBIN 33.9 pg (27.0-33.0); MEAN CORPUSCULAR VOLUME 96.8 fl (80.0-96.0); PLATELET COUNT, AUTOMATED 294 10^3/uL (150-450); RED BLOOD COUNT 4.04 10^6/uL (4.30-6.10); WHITE BLOOD COUNT 6.7 10^3/uL (4.0-10.0)
[2022-09-03 20:55] LABS: SALICYLATE LEVEL < 3.0 MG/DL (<30)
[2022-09-03 20:56] LABS: ACETAMINOPHEN LEVEL < 2.0 UG/ML (10.0-20.0); ALBUMIN 3.3 G/DL (3.2-5.2); ALKALINE PHOSPHATASE 84 U/L (46-116); ALT/SGPT 32 U/L (7.0-40); AST/SGOT 51 U/L (<34); BILIRUBIN,DIRECT 0.3 MG/DL (<0.4); BILIRUBIN,TOTAL 0.5 MG/DL (0.3-1.2); BLOOD UREA NITROGEN 6 MG/DL (9-23); CALCIUM LEVEL 8.1 MG/DL (8.3-10.6); CARBON DIOXIDE LEVEL 18 MMOL/L (20-31); CHLORIDE LEVEL 98 MMOL/L (98-107); GLOMERULAR FILTRATION RATE > 60.0 (>49); GLUCOSE, FASTING 69 MG/DL (74-106); POTASSIUM SERUM 4.3 MMOL/L (3.5-5.1); SODIUM LEVEL 132 MMOL/L (136-145)
[2022-09-03 20:58] LABS: THYROID STIMULATING HORMONE 0.482 uIU/ML (0.55-4.78)
[2022-09-03 21:13] LABS: ETHYL ALCOHOL (ETHANOL) 0.313 % (0.000-0.010)
[2022-09-03 22:16] LABS: VALPROIC ACID (DEPAKOTE) 69.2 UG/ML (50.0-100.0)
[2022-09-04] MEDS: COMBIVENT RESPIMAT 100-20MCG INHALER 4GM INH SCH ×3 (00:13→00:49)
[2022-09-04] MEDS ORDERED: traZODone 50 MG TAB PO ONE (00:35)
[2022-09-04] MEDS ORDERED: COMBIVENT RESPIMAT 100-20MCG INHALER 4GM INH SCH (05:35)
[2022-09-04] MEDS ORDERED: ONDANSETRON 4MG ORAL DISINTEGRATING TAB PO ONE (05:35)
[2022-09-04] MEDS ORDERED: OXAZEPAM 15MG CAP PO ONE (05:35)
[2022-09-04 14:59] VITALS: BP 145/87
== END 2022-09-04 16:46 | disposition home or self-care (01) ==
LOC: M ED 18:46
DX: F10.129 Alcohol abuse with intoxication, unspecified (principal); F32.A Depression, unspecified; I10 Essential (primary) hypertension; K21.9 Gastro-esophageal reflux disease without esophagitis; J44.9 Chronic obstructive pulmonary disease, unspecified; F31.9 Bipolar disorder, unspecified; E78.5 Hyperlipidemia, unspecified; F17.200 Nicotine dependence, unspecified, uncomplicated; Z88.5 Allergy status to narcotic agent; Z88.8 Allergy status to other drugs, medicaments and biological substances; Z79.52 Long term (current) use of systemic steroids; Z79.811 Long term (current) use of aromatase inhibitors; Z79.899 Other long term (current) drug therapy

== ENCOUNTER 2022-09-30 06:03 | Observation (INO) | payer MEDICARE, MEDICAID ==
[~2022-09-30] VITALS: Ht 188 cm; Wt 104.5 kg
[2022-09-30] MEDS ORDERED: NS 1,000 ML IV ONE (06:50)
[2022-09-30 06:55] LABS: BASO % 0.3 % (0.0-1.0); EOS % 0.2 % (0.0-3.0); HEMATOCRIT 37.2 % (42.0-52.0); LYMPH # 0.7 10^3/uL (1.5-5.0); LYMPH % 11.3 % (24.0-44.0); MEAN CORPUSCULAR HEMOGLOBIN 34.8 pg (27.0-33.0); MEAN CORPUSCULAR HGB CONC 34.9 g/dl (32.0-36.5); MEAN CORPUSCULAR VOLUME 99.5 fl (80.0-96.0); MONO # 0.5 10^3/uL (0.0-0.8); MONO % 8.6 % (2.0-8.0); NEUTROPHILS # 4.8 10^3/uL (1.5-8.5); NEUTROPHILS % 78.8 % (36.0-66.0); PLATELET COUNT, AUTOMATED 187 10^3/uL (150-450); RED BLOOD COUNT 3.74 10^6/uL (4.30-6.10); WHITE BLOOD COUNT 6.1 10^3/uL (4.0-10.0)
[2022-09-30] MEDS ORDERED: MORPHINE 4 MG/ML 1ML VIAL IV ONE ×2 (06:55→09:20)
[2022-09-30] MEDS ORDERED: ONDANSETRON 4MG 2ML VIAL IV ONE (06:55)
[2022-09-30 07:25] LABS: CK-MB VALUE MASS < 1.0 NG/ML (<3.6)
[2022-09-30 07:26] LABS: LIPASE 26 U/L (12-53)
[2022-09-30 07:27] LABS: AMYLASE 39 U/L (30-118); CPK CREATINE PHOSPHOKINASE 16 U/L (46-171); MB/CK RELATIVE INDEX 6.25 (< OR =4)
[2022-09-30 07:28] LABS: ALBUMIN 2.6 G/DL (3.2-5.2); ALKALINE PHOSPHATASE 104 U/L (46-116); ALT/SGPT 25 U/L (7.0-40); AST/SGOT 32 U/L (<34); BILIRUBIN,DIRECT 0.4 MG/DL (<0.4); BILIRUBIN,TOTAL 0.8 MG/DL (0.3-1.2); BLOOD UREA NITROGEN 13 MG/DL (9-23); CALCIUM LEVEL 8.2 MG/DL (8.3-10.6); CARBON DIOXIDE LEVEL 27 MMOL/L (20-31); CHLORIDE LEVEL 93 MMOL/L (98-107); CREATININE FOR GFR 0.56 MG/DL (0.70-1.30); GLOMERULAR FILTRATION RATE > 60.0 (>49); GLUCOSE, FASTING 97 MG/DL (74-106); POTASSIUM SERUM 3.2 MMOL/L (3.5-5.1); SODIUM LEVEL 129 MMOL/L (136-145); TOTAL PROTEIN 5.4 G/DL (5.7-8.2)
[2022-09-30] MEDS ORDERED: ISOVUE-370 76% 100ML VIAL As Ordered ONE (07:39)
[2022-09-30] MEDS ORDERED: TIOTROPIUM INHALER/CAPSULE (SPIRIVA) INH SCH (08:00)
[2022-09-30] MEDS ORDERED: VITAMIN D 1,000 INTERNATIONAL UNITS TABLET PO SCH (09:00)
[2022-09-30] MEDS ORDERED: OMEPRAZOLE 20MG CAP PO SCH (09:00)
[2022-09-30] MEDS ORDERED: MAGNESIUM OXIDE 400MG TAB (MAG-OX) PO SCH (09:00)
[2022-09-30] MEDS ORDERED: TAMSULOSIN 0.4 MG CAP PO SCH (09:00)
[2022-09-30] MEDS ORDERED: POTASSIUM CHLORIDE 10MEQ SR TABLET PO ONE (09:25)
[2022-09-30] MEDS ORDERED: MAGN400T2 PO (09:52)
[2022-09-30] MEDS ORDERED: VITA100093 PO (09:52)
[2022-09-30] MEDS ORDERED: HOME MED LIST COMPLETE! XX SCH (09:55)
[2022-09-30] MEDS ORDERED: COMBIVENT RESPIMAT 100-20MCG INHALER 4GM INH PRN (10:10)
[2022-09-30] MEDS ORDERED: LORazepam 2 MG TAB PO PRN (10:30)
[2022-09-30] MEDS ORDERED: KETOROLAC 30 MG/ML 1ML VIAL IV PRN ×2 (10:35)
[2022-09-30] MEDS ORDERED: LIDOCAINE 5% (LIDODERM) PATCH TD ONE (10:35)
[2022-09-30] MEDS ORDERED: MORPHINE 4 MG/ML 1ML VIAL IV PRN (10:35)
[2022-09-30] MEDS ORDERED: LR 1,000 ML IV SCH (10:45)
[2022-09-30 10:58] LABS: MAGNESIUM LEVEL 1.3 MG/DL (1.8-2.4)
[2022-09-30 11:12] LABS: INR 0.9; PROTHROMBIN TIME 12.3 SECONDS (12.5-14.5)
[2022-09-30 11:15] LABS: OSMOLALITY URINE 278 MOSM/KG (50-1400)
[2022-09-30 11:18] LABS: SODIUM,RANDOM URINE 19 MMOL/L
[2022-09-30] MEDS: DIVALPROEX 500 MG TAB PO SCH ×2 (11:26→16:56)
[2022-09-30 11:30] VITALS: BP 120/76
[2022-09-30 11:45] LABS: HEPATITIS B SURFACE ANTIGEN NEGATIVE (NEGATIVE)
[2022-09-30] MEDS ORDERED: ACETAMINOPHEN 500 MG TAB PO SCH (12:00)
[2022-09-30 12:04] LABS: HEPATITIS C VIRUS ABY INDEX 0.1 INDEX (<0.8)
[2022-09-30 12:05] LABS: HEPATITIS B CORE ANTIBODY IGM NEGATIVE (NEGATIVE)
[2022-09-30] MEDS ORDERED: IBUP-1114 PO (16:16)
[2022-09-30] MEDS ORDERED: FOLI1TAB11 PO (16:16)
[2022-09-30] MEDS ORDERED: THIA100TA PO (16:16)
[2022-09-30] MEDS ORDERED: CREO12CA PO (16:16)
[2022-09-30] MEDS ORDERED: ACET-683 PO (16:16)
[2022-09-30] MEDS ORDERED: PERC5TAB12 PO (16:16)
[2022-09-30] MEDS ORDERED: VITMTA PO (16:16)
[2022-09-30] MEDS ORDERED: LIDO5DIS41 TOP (16:17)
[2022-09-30] MEDS ORDERED: CIPR-249 PO (16:22)
[2022-09-30] MEDS ORDERED: RIVAROXABAN 10MG TAB (XARELTO) PO SCH (18:00)
[2022-09-30] MEDS ORDERED: CREON-12 CAPSULE PO SCH (18:00)
[2022-09-30] MEDS ORDERED: THIAMINE 100 MG TAB PO SCH (21:00)
[2022-09-30] MEDS ORDERED: lisinopriL 40MG TAB PO SCH (21:00)
[2022-09-30] MEDS ORDERED: PRAVASTATIN 20 MG TAB PO SCH (21:00)
[2022-09-30] MEDS ORDERED: traZODone 50 MG TAB PO SCH (21:00)
[2022-10-01] MEDS ORDERED: MULTIVITAMINS/MINERALS THERAP 1 TAB PO SCH (09:00)
[2022-10-01] MEDS ORDERED: FOLIC ACID 1MG TAB PO SCH (09:00)
== END 2022-09-30 18:00 | disposition home or self-care (01) ==
LOC: EDBD 06:03 → M ED 06:03 → M ED INP 10:09
PROVIDERS: ADMIT Student in an Organized Health Care Education/Training Program; ATTEND Student in an Organized Health Care Education/Training Program
DX: N39.0 Urinary tract infection, site not specified (principal); N32.9 Bladder disorder, unspecified; N31.9 Neuromuscular dysfunction of bladder, unspecified; K57.30 Diverticulosis of large intestine without perforation or abscess without bleeding; K86.3 Pseudocyst of pancreas; F10.10 Alcohol abuse, uncomplicated; E87.1 Hypo-osmolality and hyponatremia; E87.6 Hypokalemia; E78.5 Hyperlipidemia, unspecified; G47.00 Insomnia, unspecified; R16.0 Hepatomegaly, not elsewhere classified; K86.1 Other chronic pancreatitis; Z88.8 Allergy status to other drugs, medicaments and biological substances; I10 Essential (primary) hypertension; K21.9 Gastro-esophageal reflux disease without esophagitis; F31.9 Bipolar disorder, unspecified; N28.1 Cyst of kidney, acquired; J44.9 Chronic obstructive pulmonary disease, unspecified; Z79.899 Other long term (current) drug therapy
CPT/HCPCS: 36415; 71045; 74177; 80048; 80076; 81000; 81015; 82150; 82550; 82553; 83605; 83690; 83735; 83935; 84300; 84484; 85025; 85610; 86705; 86709; 86803; 87088; 87186; 87340; 87486; 87581; 87633; 87798; 93005; 93041; 94760; 96374; 96375; 96376; 99285; G0378; J2405; Q9967

== ENCOUNTER 2022-12-04 20:03 | Emergency (ER) | payer MEDICARE, MEDICAID ==
[~2022-12-04] VITALS: Ht 188 cm; Wt 100.0 kg
[~2022-12-04 20:03] MED LIST changes: +ACET-683 PO; +CREO12CA PO; +FOLI1TAB11 PO; +IBUP-1114 PO; +LIDO5DIS41 TOP; +MAGN400T2 PO; +THIA100TA PO; +VITA100093 PO; +VITMTA PO
[2022-12-04 20:13] VITALS: BP 144/94
[2022-12-04 22:07] LABS: BASO % 0.5 % (0.0-1.0); EOS # 0.3 10^3/uL (0.0-0.5); EOS % 3.1 % (0.0-3.0); HEMATOCRIT 39.2 % (42.0-52.0); HEMOGLOBIN 13.6 g/dl (13.5-17.5); LYMPH # 0.7 10^3/uL (1.5-5.0); LYMPH % 8.6 % (24.0-44.0); MEAN CORPUSCULAR HEMOGLOBIN 34.4 pg (27.0-33.0); MEAN CORPUSCULAR HGB CONC 34.7 g/dl (32.0-36.5); MEAN CORPUSCULAR VOLUME 99.2 fl (80.0-96.0); MONO # 0.5 10^3/uL (0.0-0.8); NEUTROPHILS # 6.6 10^3/uL (1.5-8.5); NEUTROPHILS % 80.9 % (36.0-66.0); PLATELET COUNT, AUTOMATED 226 10^3/uL (150-450); RED BLOOD COUNT 3.95 10^6/uL (4.30-6.10); WHITE BLOOD COUNT 8.2 10^3/uL (4.0-10.0)
[2022-12-04 23:04] LABS: ALBUMIN 3.3 G/DL (3.2-5.2); ALKALINE PHOSPHATASE 161 U/L (46-116); ALT/SGPT 1437 U/L (7.0-40); AST/SGOT 1783 U/L (<34); BILIRUBIN,TOTAL 1.9 MG/DL (0.3-1.2); BLOOD UREA NITROGEN 16 MG/DL (9-23); CALCIUM LEVEL 8.9 MG/DL (8.3-10.6); CARBON DIOXIDE LEVEL 23 MMOL/L (20-31); CHLORIDE LEVEL 94 MMOL/L (98-107); CREATININE FOR GFR 0.53 MG/DL (0.70-1.30); GLOMERULAR FILTRATION RATE > 60.0 (>49); GLUCOSE, FASTING 101 MG/DL (74-106); LIPASE 50 U/L (12-53); POTASSIUM SERUM 4.1 MMOL/L (3.5-5.1); SODIUM LEVEL 127 MMOL/L (136-145); TOTAL PROTEIN 6.2 G/DL (5.7-8.2)
== END 2022-12-04 23:17 | disposition left against medical advice (07) ==
LOC: EDBD 20:03 → M ED 20:03
DX: Z53.21 Procedure and treatment not carried out due to patient leaving prior to being seen by health care provider (principal)

== ENCOUNTER 2023-01-10 20:02 | Emergency (ER) | payer MEDICARE, MEDICAID ==
[2023-01-10 20:43] LABS: BASO # 0.1 10^3/uL (0.0-0.2); BASO % 0.6 % (0.0-1.0); EOS # 0.1 10^3/uL (0.0-0.5); EOS % 1.3 % (0.0-3.0); HEMATOCRIT 37.4 % (42.0-52.0); HEMOGLOBIN 13.3 g/dl (13.5-17.5); LYMPH % 26.1 % (24.0-44.0); MEAN CORPUSCULAR HEMOGLOBIN 34.8 pg (27.0-33.0); MEAN CORPUSCULAR HGB CONC 35.6 g/dl (32.0-36.5); MEAN CORPUSCULAR VOLUME 97.9 fl (80.0-96.0); MONO # 0.7 10^3/uL (0.0-0.8); MONO % 9.6 % (2.0-8.0); NEUTROPHILS # 4.8 10^3/uL (1.5-8.5); PLATELET COUNT, AUTOMATED 366 10^3/uL (150-450); RED BLOOD COUNT 3.82 10^6/uL (4.30-6.10); WHITE BLOOD COUNT 7.7 10^3/uL (4.0-10.0)
[2023-01-10 21:09] LABS: ACETAMINOPHEN LEVEL < 2.0 UG/ML (10.0-20.0); SALICYLATE LEVEL < 3.0 MG/DL (<30)
[2023-01-10 21:11] LABS: RSV AMPLIFICATION NEGATIVE (NEGATIVE)
[2023-01-10 21:13] LABS: ALBUMIN 3.5 G/DL (3.2-5.2); ALKALINE PHOSPHATASE 96 U/L (46-116); ALT/SGPT 39 U/L (7.0-40); AST/SGOT 61 U/L (<34); BILIRUBIN,DIRECT 0.2 MG/DL (<0.4); BILIRUBIN,TOTAL 0.4 MG/DL (0.3-1.2); BLOOD UREA NITROGEN < 5 MG/DL (9-23); CALCIUM LEVEL 8.2 MG/DL (8.3-10.6); CARBON DIOXIDE LEVEL 26 MMOL/L (20-31); CHLORIDE LEVEL 97 MMOL/L (98-107); CPK CREATINE PHOSPHOKINASE 152 U/L (46-171); CREATININE FOR GFR 0.56 MG/DL (0.70-1.30); GLOMERULAR FILTRATION RATE > 60.0 (>49); GLUCOSE, FASTING 84 MG/DL (74-106); SODIUM LEVEL 133 MMOL/L (136-145); THYROID STIMULATING HORMONE 0.911 uIU/ML (0.55-4.78); TOTAL PROTEIN 6.7 G/DL (5.7-8.2)
[2023-01-10 21:26] LABS: ETHYL ALCOHOL (ETHANOL) 0.368 % (0.000-0.010)
[2023-01-10] MEDS ORDERED: OLANZapine ORAL DISINTEGRATING TAB 5MG PO ONE (21:55)
[2023-01-11 02:15] LABS: AMPHETAMINES LEVEL URINE NEGATIVE (NEGATIVE); BARBITURATES URINE NEGATIVE (NEGATIVE); BENZODIAZEPINES URINE NEGATIVE (NEGATIVE); COCAINE METABOLITE URINE NEGATIVE (NEGATIVE); METHADONE URINE NEGATIVE (NEGATIVE); OPIATES URINE NEGATIVE (NEGATIVE); PHENCYCLIDINE URINE NEGATIVE (NEGATIVE)
[2023-01-11 02:17] LABS: CANNABINOIDS URINE POSITIVE (NEGATIVE)
[2023-01-11] MEDS ORDERED: CREO12CA PO (07:01)
[2023-01-11] MEDS ORDERED: THIA100T7 PO (07:01)
[2023-01-11] MEDS ORDERED: FOLI1TAB11 PO (07:01)
[2023-01-11] MEDS ORDERED: VITMTA PO (07:01)
[2023-01-11] MEDS ORDERED: FLOM0.4C39 PO (07:02)
[2023-01-11] MEDS ORDERED: CYCL5TAB PO (07:02)
[2023-01-11] MEDS ORDERED: HOME MED LIST COMPLETE! XX SCH (07:05)
[2023-01-11] MEDS ORDERED: LORazepam 2 MG TAB PO PRN (08:45)
[2023-01-11] MEDS ORDERED: THIAMINE 100 MG TAB PO SCH (09:00)
[2023-01-11] MEDS ORDERED: FOLIC ACID 1MG TAB PO SCH (09:00)
[2023-01-11] MEDS ORDERED: MULTIVITAMINS/MINERALS THERAP 1 TAB PO SCH (09:00)
[2023-01-11 16:53] VITALS: BP 168/107
== END 2023-01-11 17:57 | disposition home or self-care (01) ==
LOC: M ED 20:02 → EDBD 20:02 → M ED 01-11 17:57
DX: F10.129 Alcohol abuse with intoxication, unspecified (principal); R45.851 Suicidal ideations; I10 Essential (primary) hypertension; J44.9 Chronic obstructive pulmonary disease, unspecified; F31.9 Bipolar disorder, unspecified; K21.9 Gastro-esophageal reflux disease without esophagitis; F12.10 Cannabis abuse, uncomplicated; F15.10 Other stimulant abuse, uncomplicated; Z88.5 Allergy status to narcotic agent; Z88.8 Allergy status to other drugs, medicaments and biological substances; Z79.52 Long term (current) use of systemic steroids; Z79.811 Long term (current) use of aromatase inhibitors; Z79.810 Long term (current) use of selective estrogen receptor modulators (SERMs); Z79.899 Other long term (current) drug therapy

== ENCOUNTER → 2023-01-31 | Outpatient (REF) | payer MEDICARE, MEDICAID ==
[~2023-01-31] MED LIST changes: +CYCL5TAB PO; +FLOM0.4C39 PO; +THIA100T7 PO
[2023-01-31 14:23] LABS: AMYLASE 64 U/L (30-118)
[2023-01-31 14:24] LABS: LIPASE 24 U/L (12-53)
[2023-01-31 14:34] LABS: HEPATITIS B SURFACE ANTIGEN NEGATIVE (NEGATIVE)
[2023-01-31 14:55] LABS: HEPATITIS C VIRUS ABY INDEX < 0.0 INDEX (<0.8)
[2023-01-31 14:56] LABS: HEPATITIS B CORE ANTIBODY IGM NEGATIVE (NEGATIVE)
[2023-01-31 14:57] LABS: ALBUMIN 3.1 G/DL (3.2-5.2); ALKALINE PHOSPHATASE 73 U/L (46-116); ALT/SGPT < 9 U/L (7.0-40); AST/SGOT 10 U/L (<34); BILIRUBIN,TOTAL 0.2 MG/DL (0.3-1.2); BLOOD UREA NITROGEN < 5 MG/DL (9-23); CALCIUM LEVEL 8.1 MG/DL (8.3-10.6); CARBON DIOXIDE LEVEL 24 MMOL/L (20-31); CHLORIDE LEVEL 88 MMOL/L (98-107); CREATININE FOR GFR 0.51 MG/DL (0.70-1.30); GLOMERULAR FILTRATION RATE > 60.0 (>49); GLUCOSE, FASTING 79 MG/DL (74-106); POTASSIUM SERUM 4.3 MMOL/L (3.5-5.1); SODIUM LEVEL 123 MMOL/L (136-145)
== END ==
LOC: M LAB REF 12:30
PROVIDERS: ATTEND Family Medicine Addiction Medicine
DX: R74.01 Elevation of levels of liver transaminase levels (principal)

== ENCOUNTER 2023-02-24 18:31 | Emergency (ER) | payer MEDICARE, MEDICAID ==
[~2023-02-24] VITALS: Ht 188 cm; Wt 104.5 kg
[2023-02-24] MEDS ORDERED: NEOSPORIN OINT 0.9 GM PKT TOP ONE (20:30)
[2023-02-24 21:42] LABS: AMPHETAMINES LEVEL URINE NEGATIVE (NEGATIVE); BARBITURATES URINE NEGATIVE (NEGATIVE); BENZODIAZEPINES URINE NEGATIVE (NEGATIVE); COCAINE METABOLITE URINE NEGATIVE (NEGATIVE); METHADONE URINE NEGATIVE (NEGATIVE); OPIATES URINE NEGATIVE (NEGATIVE); PHENCYCLIDINE URINE NEGATIVE (NEGATIVE)
[2023-02-24 21:46] LABS: CANNABINOIDS URINE POSITIVE (NEGATIVE)
[2023-02-24 22:28] VITALS: BP 119/67
== END 2023-02-24 22:59 | disposition home or self-care (01) ==
LOC: M ED 18:31
DX: F10.129 Alcohol abuse with intoxication, unspecified (principal); S50.812A Abrasion of left forearm, initial encounter; S70.01XA Contusion of right hip, initial encounter; S80.01XA Contusion of right knee, initial encounter; S30.0XXA Contusion of lower back and pelvis, initial encounter; W01.0XXA Fall on same level from slipping, tripping and stumbling without subsequent striking against object, initial encounter; F19.10 Other psychoactive substance abuse, uncomplicated; J44.9 Chronic obstructive pulmonary disease, unspecified; I10 Essential (primary) hypertension; K21.9 Gastro-esophageal reflux disease without esophagitis; F17.200 Nicotine dependence, unspecified, uncomplicated; Z88.8 Allergy status to other drugs, medicaments and biological substances; Z91.048 Other nonmedicinal substance allergy status; Z79.52 Long term (current) use of systemic steroids; Z79.811 Long term (current) use of aromatase inhibitors; Z79.899 Other long term (current) drug therapy

== ENCOUNTER → 2023-03-01 | Outpatient (CLI) | payer MEDICARE, MEDICAID | LOC: M LAB 11:18 | PROVIDERS: ATTEND Physician Assistant | DX: Z12.5 Encounter for screening for malignant neoplasm of prostate (principal) | CPT/HCPCS: 36415; G0103 ==

== ENCOUNTER → 2023-10-31 | Outpatient (REF) | payer MEDICARE, MEDICAID ==
[2023-10-31 12:52] LABS: FREE T4 1.23 NG/DL (0.89-1.76); THYROID STIMULATING HORMONE 0.756 uIU/ML (0.55-4.78); VALPROIC ACID (DEPAKOTE) 75.2 UG/ML (50.0-100.0)
[2023-10-31 12:54] LABS: ALBUMIN 3.2 G/DL (3.2-5.2); ALKALINE PHOSPHATASE 70 U/L (46-116); ALT/SGPT 11 U/L (7.0-40); AST/SGOT 13 U/L (<34); BILIRUBIN,TOTAL 0.3 MG/DL (0.3-1.2); BLOOD UREA NITROGEN 6 MG/DL (9-23); CALCIUM LEVEL 8.3 MG/DL (8.3-10.6); CARBON DIOXIDE LEVEL 24 MMOL/L (20-31); CHLORIDE LEVEL 88 MMOL/L (98-107); CHOLESTEROL LEVEL 131 MG/DL (<200); GLOMERULAR FILTRATION RATE > 60.0 (>49); GLUCOSE, FASTING 72 MG/DL (74-106); HDL CHOLESTEROL 59.4 MG/DL (>40); LDL CHOLESTEROL 43.2 MG/DL (<100); NON-HDL-C 71.6 MG/DL; POTASSIUM SERUM 4.6 MMOL/L (3.5-5.1); SODIUM LEVEL 123 MMOL/L (136-145); TOTAL PROTEIN 6.2 G/DL (5.7-8.2); TRIGLYCERIDES LEVEL 142 MG/DL (<150)
== END ==
LOC: M LAB REF 11:31
PROVIDERS: ATTEND Family Medicine Addiction Medicine
DX: R25.1 Tremor, unspecified (principal); I10 Essential (primary) hypertension

== ENCOUNTER → 2023-11-22 | Outpatient (REF) | payer MEDICARE, MEDICAID ==
[2023-11-22 15:14] LABS: ETHYL ALCOHOL (ETHANOL) < 0.003 % (0.000-0.010)
[2023-11-22 15:16] LABS: BLOOD UREA NITROGEN 10 MG/DL (9-23); CALCIUM LEVEL 8.9 MG/DL (8.3-10.6); CARBON DIOXIDE LEVEL 27 MMOL/L (20-31); CHLORIDE LEVEL 93 MMOL/L (98-107); CREATININE FOR GFR 0.52 MG/DL (0.70-1.30); GLOMERULAR FILTRATION RATE > 60.0 (>49); GLUCOSE, FASTING 89 MG/DL (74-106); MAGNESIUM LEVEL 1.1 MG/DL (1.8-2.4); POTASSIUM SERUM 4.3 MMOL/L (3.5-5.1); SODIUM LEVEL 126 MMOL/L (136-145)
== END ==
LOC: M LAB REF 12:59
PROVIDERS: ATTEND Nurse Practitioner Family
DX: E87.1 Hypo-osmolality and hyponatremia (principal); E83.42 Hypomagnesemia

== ENCOUNTER → 2023-11-23 | Outpatient (REF) | payer MEDICARE, MEDICAID | LOC: M LAB REF 16:34 | PROVIDERS: ATTEND Nurse Practitioner Family | DX: E87.1 Hypo-osmolality and hyponatremia (principal) ==

== ENCOUNTER → 2023-12-12 | Outpatient (CLI) | payer MEDICARE, MEDICAID ==
[2023-12-12 11:19] LABS: SODIUM,RANDOM URINE 11 MMOL/L
[2023-12-14 00:07] LABS: OSMOLALITY URINE 335 mOsmol/kg (.)
== END ==
LOC: M RAD 08:09
PROVIDERS: ATTEND Nurse Practitioner Family
DX: Z13.6 Encounter for screening for cardiovascular disorders (principal)

== ENCOUNTER 2023-12-17 16:07 | Inpatient (IN) | payer MEDICARE, MEDICAID ==
[~2023-12-17] VITALS: Ht 185.4 cm; Wt 109.1 kg
[2023-12-17 17:16] LABS: BASO # 0.1 10^3/uL (0.0-0.2); BASO % 1.1 % (0.0-1.0); EOS # 0.1 10^3/uL (0.0-0.5); EOS % 2.6 % (0.0-3.0); HEMATOCRIT 34.2 % (42.0-52.0); HEMOGLOBIN 12.3 g/dl (13.5-17.5); LYMPH # 1.3 10^3/uL (1.5-5.0); LYMPH % 27.5 % (24.0-44.0); MEAN CORPUSCULAR HEMOGLOBIN 34.2 pg (27.0-33.0); MONO # 0.6 10^3/uL (0.0-0.8); MONO % 12.7 % (2.0-8.0); NEUTROPHILS # 2.5 10^3/uL (1.5-8.5); NEUTROPHILS % 55.7 % (36.0-66.0); PLATELET COUNT, AUTOMATED 208 10^3/uL (150-450); WHITE BLOOD COUNT 4.6 10^3/uL (4.0-10.0)
[2023-12-17 17:31] LABS: ETHYL ALCOHOL (ETHANOL) 0.256 % (0.000-0.010)
[2023-12-17 17:33] LABS: BLOOD UREA NITROGEN 6 MG/DL (9-23); CALCIUM LEVEL 8.3 MG/DL (8.3-10.6); CARBON DIOXIDE LEVEL 24 MMOL/L (20-31); CHLORIDE LEVEL 93 MMOL/L (98-107); CREATININE FOR GFR 0.46 MG/DL (0.70-1.30); GLOMERULAR FILTRATION RATE > 60.0 (>49); GLUCOSE, FASTING 70 MG/DL (74-106); POTASSIUM SERUM 4.6 MMOL/L (3.5-5.1); SODIUM LEVEL 124 MMOL/L (136-145)
[2023-12-17 17:47] LABS: CK-MB VALUE MASS 3.5 NG/ML (<3.6)
[2023-12-17 17:49] LABS: ALBUMIN 3.4 G/DL (3.2-5.2); ALKALINE PHOSPHATASE 68 U/L (46-116); ALT/SGPT 21 U/L (7.0-40); AST/SGOT 31 U/L (<34); BILIRUBIN,DIRECT 0.5 MG/DL (<0.4); BILIRUBIN,TOTAL 0.8 MG/DL (0.3-1.2); MAGNESIUM LEVEL 1.3 MG/DL (1.8-2.4); TOTAL PROTEIN 6.2 G/DL (5.7-8.2)
[2023-12-17 17:51] LABS: THYROID STIMULATING HORMONE 0.642 uIU/ML (0.55-4.78)
[2023-12-17 17:52] LABS: FREE T4 1.14 NG/DL (0.89-1.76)
[2023-12-17 17:53] LABS: CPK CREATINE PHOSPHOKINASE 80 U/L (46-171); MB/CK RELATIVE INDEX 4.37 (< OR =4)
[2023-12-17 18:53] LABS: CREATININE,RANDOM URINE 33.3 MG/DL
[2023-12-17] MEDS: NS 1,000 ML IV ONE (19:10)
[2023-12-17 19:24] LABS: RSV AMPLIFICATION NEGATIVE (NEGATIVE)
[2023-12-17] MEDS: FORMOTEROL FUMARATE 20 MCG/2 ML INHALATION SOLUTION (PERFOROMIST) INH SCH (20:30)
[2023-12-17] MEDS ORDERED: MULT-90 PO (20:50)
[2023-12-17] MEDS ORDERED: CENT1TAB2 PO (20:50)
[2023-12-17] MEDS ORDERED: SILD50TA2 PO (20:50)
[2023-12-17] MEDS ORDERED: HOME MED LIST COMPLETE! XX SCH (20:55)
[2023-12-17 22:46] VITALS: BP 125/70; TEMP 97.9; O2SAT 95
[2023-12-17] MEDS: PANTOPRAZOLE 20 MG TAB PO SCH (23:25)
[2023-12-17] MEDS: DIVALPROEX 500 MG TAB PO SCH (23:25)
[2023-12-17] MEDS: traZODone 50 MG TAB PO SCH (23:25)
[2023-12-17] MEDS: MAGNESIUM OXIDE 400MG TAB (MAG-OX) PO STA (23:25)
[2023-12-17] MEDS: lisinopriL 40MG TAB PO SCH (23:26)
[2023-12-17] MEDS: NICOTINE 21MG/24HR 1 EA TRANSDERMAL TD SCH (23:26)
[2023-12-18] MEDS: COMBIVENT RESPIMAT 100-20MCG INHALER 4GM INH PRN (03:00)
[2023-12-18 05:53] VITALS: BP 120/66
[2023-12-18 06:40] LABS: BLOOD UREA NITROGEN 7 MG/DL (9-23); CALCIUM LEVEL 9.1 MG/DL (8.3-10.6); CARBON DIOXIDE LEVEL 26 MMOL/L (20-31); CHLORIDE LEVEL 96 MMOL/L (98-107); CREATININE FOR GFR 0.47 MG/DL (0.70-1.30); GLOMERULAR FILTRATION RATE > 60.0 (>49); GLUCOSE, FASTING 78 MG/DL (74-106); SODIUM LEVEL 131 MMOL/L (136-145)
[2023-12-18] MEDS: TIOTROPIUM INHALER/CAPSULE (SPIRIVA) INH SCH (07:35)
[2023-12-18] MEDS: THIAMINE 100 MG TAB PO SCH (08:29)
[2023-12-18] MEDS: CREON-12 CAPSULE PO SCH (08:29)
[2023-12-18] MEDS: HEPARIN SOD (PORCINE) 5000UNITS/ML 1ML VIAL/SYRINGE SC SCH (08:30)
[2023-12-18] MEDS: PRAVASTATIN 20 MG TAB PO SCH (08:30)
[2023-12-18] MEDS ORDERED: LORazepam 2 MG TAB PO PRN (10:40)
[2023-12-18 11:37] LABS: BLOOD UREA NITROGEN 8 MG/DL (9-23); CALCIUM LEVEL 9.1 MG/DL (8.3-10.6); CARBON DIOXIDE LEVEL 28 MMOL/L (20-31); CHLORIDE LEVEL 96 MMOL/L (98-107); CREATININE FOR GFR 0.49 MG/DL (0.70-1.30); GLOMERULAR FILTRATION RATE > 60.0 (>49); GLUCOSE, FASTING 181 MG/DL (74-106); MAGNESIUM LEVEL 1.4 MG/DL (1.8-2.4); POTASSIUM SERUM 4.1 MMOL/L (3.5-5.1); SODIUM LEVEL 128 MMOL/L (136-145)
[2023-12-18] MEDS: MULTIVITAMINS/MINERALS THERAP 1 TAB PO SCH (11:49)
[2023-12-18] MEDS: chlordiazePOXIDE 25 MG CAP PO SCH (11:50)
[2023-12-18 14:00] VITALS: TEMP 98.1; O2SAT 94
[2023-12-18 14:36] VITALS: BP 102/65
[2023-12-18] MEDS: MAGNESIUM SULFATE 8 MEQ in NS 100 ML IV SCH (14:56)
[2023-12-18] MEDS: SODIUM CHLORIDE 1 GM TAB PO SCH (16:57)
[2023-12-18 21:08] VITALS: BP 104/60; TEMP 97.9; O2SAT 89
[2023-12-19] MEDS: CYCLOBENZAPRINE 5MG TABLET PO PRN (01:43)
[2023-12-19] MEDS ORDERED: ACETAMINOPHEN 500 MG TAB PO PRN ×2 (02:50)
[2023-12-19] MEDS: ACETAMINOPHEN *IV* 1,000 MG in IV 1 EA IV ONE (03:21)
[2023-12-19 06:00] VITALS: BP 115/67; TEMP 97.4; O2SAT 98
[2023-12-19 06:17] LABS: BASO % 0.5 % (0.0-1.0); EOS # 0.1 10^3/uL (0.0-0.5); HEMATOCRIT 32.9 % (42.0-52.0); HEMOGLOBIN 11.5 g/dl (13.5-17.5); LYMPH % 17.2 % (24.0-44.0); MEAN CORPUSCULAR HEMOGLOBIN 33.2 pg (27.0-33.0); MEAN CORPUSCULAR VOLUME 95.1 fl (80.0-96.0); MONO # 0.6 10^3/uL (0.0-0.8); MONO % 10.4 % (2.0-8.0); NEUTROPHILS # 4.2 10^3/uL (1.5-8.5); NEUTROPHILS % 69.2 % (36.0-66.0); PLATELET COUNT, AUTOMATED 161 10^3/uL (150-450); RED BLOOD COUNT 3.46 10^6/uL (4.30-6.10)
[2023-12-19 07:49] LABS: BLOOD UREA NITROGEN 12 MG/DL (9-23); CALCIUM LEVEL 8.6 MG/DL (8.3-10.6); CARBON DIOXIDE LEVEL 29 MMOL/L (20-31); CHLORIDE LEVEL 96 MMOL/L (98-107); GLOMERULAR FILTRATION RATE > 60.0 (>49); GLUCOSE, FASTING 109 MG/DL (74-106); MAGNESIUM LEVEL 1.7 MG/DL (1.8-2.4); POTASSIUM SERUM 3.6 MMOL/L (3.5-5.1); SODIUM LEVEL 127 MMOL/L (136-145)
[2023-12-19] MEDS ORDERED: ACETAMINOPHEN TAB 650MG DOSE (2X325MG) PO PRN ×2 (07:55→10:40)
[2023-12-19] MEDS: FOLIC ACID 1MG TAB PO SCH (08:29)
[2023-12-19] MEDS: MAGNESIUM OXIDE 400MG TAB (MAG-OX) PO ONE (08:29)
[2023-12-19 08:32] VITALS: BP 106/66
[2023-12-19] MEDS ORDERED: ISOVUE-370 76% 100ML VIAL As Ordered ONE (09:54)
[2023-12-19] MEDS: CEFDINIR 300 MG CAP (OMNICEF) PO SCH (10:54)
[2023-12-19 14:00] VITALS: BP 108/62; TEMP 98.6; O2SAT 98
[2023-12-19] MEDS: IPRATROPIUM 0.5MG/ALBUTEROL 2.5MG INH SOL UD 3ML (DUONEB) NEB PRN (19:49)
[2023-12-19] MEDS ORDERED: FORMOTEROL FUMARATE 20 MCG/2 ML INHALATION SOLUTION (PERFOROMIST) INH SCH (20:00)
[2023-12-19 21:01] VITALS: BP 126/76; TEMP 97.9; O2SAT 95
[2023-12-19 21:06] VITALS: BP 126/76
[2023-12-19 21:17] VITALS: BP 126/76
[2023-12-20 05:23] VITALS: BP 110/64; TEMP 97.9; O2SAT 97
[2023-12-20 06:13] LABS: HEMATOCRIT 34.4 % (42.0-52.0); HEMOGLOBIN 11.7 g/dl (13.5-17.5); MEAN CORPUSCULAR HEMOGLOBIN 33.1 pg (27.0-33.0); MEAN CORPUSCULAR VOLUME 97.5 fl (80.0-96.0); PLATELET COUNT, AUTOMATED 158 10^3/uL (150-450); RED BLOOD COUNT 3.53 10^6/uL (4.30-6.10); WHITE BLOOD COUNT 4.8 10^3/uL (4.0-10.0)
[2023-12-20 06:53] LABS: BLOOD UREA NITROGEN 7 MG/DL (9-23); CALCIUM LEVEL 8.5 MG/DL (8.3-10.6); CARBON DIOXIDE LEVEL 28 MMOL/L (20-31); CHLORIDE LEVEL 100 MMOL/L (98-107); CREATININE FOR GFR 0.52 MG/DL (0.70-1.30); GLOMERULAR FILTRATION RATE > 60.0 (>49); GLUCOSE, FASTING 85 MG/DL (74-106); MAGNESIUM LEVEL 1.4 MG/DL (1.8-2.4); POTASSIUM SERUM 3.5 MMOL/L (3.5-5.1); SODIUM LEVEL 133 MMOL/L (136-145)
[2023-12-20] MEDS: MAG SULF 1GM/100ML (MAG RUN) 1 GM in IV 1 EA IV ONE (08:42)
[2023-12-20] MEDS ORDERED: CEFD300CAP PO (10:48)
[2023-12-20] MEDS ORDERED: SLOWTAB2 PO (10:48)
[2023-12-20] MEDS ORDERED: SODI1TAB6 PO (10:48)
[2023-12-20] MEDS ORDERED: FOLI1TAB11 PO (10:48)
== END 2023-12-20 12:30 | disposition home or self-care (01) | DRG 699 ==
LOC: M ED 16:07 → M ED INP 16:08 → ENRESERV 22:18 → M MSPAV 22:45 → OBSVTOIN 12-18 13:32
PROVIDERS: ADMIT Internal Medicine; ATTEND Internal Medicine
DX: T83.511A Infection and inflammatory reaction due to indwelling urethral catheter, initial encounter (principal); F10.288 Alcohol dependence with other alcohol-induced disorder; E87.1 Hypo-osmolality and hyponatremia; K86.1 Other chronic pancreatitis; N39.0 Urinary tract infection, site not specified; F31.9 Bipolar disorder, unspecified; N31.9 Neuromuscular dysfunction of bladder, unspecified; J44.9 Chronic obstructive pulmonary disease, unspecified; F17.210 Nicotine dependence, cigarettes, uncomplicated; K86.89 Other specified diseases of pancreas; E78.00 Pure hypercholesterolemia, unspecified; K21.9 Gastro-esophageal reflux disease without esophagitis; M54.9 Dorsalgia, unspecified; G89.29 Other chronic pain; I10 Essential (primary) hypertension; N40.1 Benign prostatic hyperplasia with lower urinary tract symptoms; N28.1 Cyst of kidney, acquired; R91.1 Solitary pulmonary nodule; Z71.6 Tobacco abuse counseling; Z79.899 Other long term (current) drug therapy; Z88.8 Allergy status to other drugs, medicaments and biological substances; E83.42 Hypomagnesemia; D64.9 Anemia, unspecified

== ENCOUNTER → 2023-12-27 | Outpatient (REF) | payer MEDICARE, MEDICAID ==
[~2023-12-27] MED LIST changes: +CEFD300CAP PO; +CENT1TAB2 PO; +MULT-90 PO; +SILD50TA2 PO; +SLOWTAB2 PO; +SODI1TAB6 PO
[2023-12-27 17:44] LABS: BLOOD UREA NITROGEN 19 MG/DL (9-23); CALCIUM LEVEL 9.2 MG/DL (8.3-10.6); CARBON DIOXIDE LEVEL 26 MMOL/L (20-31); CHLORIDE LEVEL 103 MMOL/L (98-107); CREATININE FOR GFR 0.56 MG/DL (0.70-1.30); GLOMERULAR FILTRATION RATE > 60.0 (>49); GLUCOSE, FASTING 98 MG/DL (74-106); MAGNESIUM LEVEL 1.1 MG/DL (1.8-2.4); POTASSIUM SERUM 4.7 MMOL/L (3.5-5.1); SODIUM LEVEL 132 MMOL/L (136-145)
== END ==
LOC: M LAB REF 16:35
PROVIDERS: ATTEND Nurse Practitioner Family
DX: E87.1 Hypo-osmolality and hyponatremia (principal); E83.42 Hypomagnesemia

== ENCOUNTER 2024-02-18 16:06 | Emergency (ER) | payer MEDICARE, MEDICAID ==
[~2024-02-18] VITALS: Ht 188 cm; Wt 104.5 kg
[2024-02-18] MEDS: KETOROLAC 30 MG/ML 1ML VIAL IV ONE ×2 (18:10→20:03)
[2024-02-18] MEDS: NS 1,000 ML IV ONE (18:11)
[2024-02-18 18:26] LABS: BASO % 0.2 % (0.0-1.0); EOS % 0.2 % (0.0-3.0); HEMOGLOBIN 15.3 g/dl (13.5-17.5); LYMPH # 0.7 10^3/uL (1.5-5.0); MEAN CORPUSCULAR HEMOGLOBIN 34.2 pg (27.0-33.0); MEAN CORPUSCULAR HGB CONC 36.4 g/dl (32.0-36.5); MONO # 0.5 10^3/uL (0.0-0.8); MONO % 8.9 % (2.0-8.0); NEUTROPHILS # 4.7 10^3/uL (1.5-8.5); PLATELET COUNT, AUTOMATED 244 10^3/uL (150-450); RED BLOOD COUNT 4.47 10^6/uL (4.30-6.10); WHITE BLOOD COUNT 6.1 10^3/uL (4.0-10.0)
[2024-02-18 18:44] LABS: LIPASE 41 U/L (12-53)
[2024-02-18 18:46] LABS: ALBUMIN 3.7 G/DL (3.2-5.2); ALKALINE PHOSPHATASE 83 U/L (46-116); ALT/SGPT 10 U/L (7.0-40); AST/SGOT < 8 U/L (<34); BILIRUBIN,TOTAL 0.4 MG/DL (0.3-1.2); BLOOD UREA NITROGEN 8 MG/DL (9-23); CALCIUM LEVEL 9.6 MG/DL (8.3-10.6); CARBON DIOXIDE LEVEL 25 MMOL/L (20-31); CHLORIDE LEVEL 95 MMOL/L (98-107); CREATININE FOR GFR 0.49 MG/DL (0.70-1.30); GLOMERULAR FILTRATION RATE > 60.0 (>49); GLUCOSE, FASTING 119 MG/DL (74-106); POTASSIUM SERUM 3.9 MMOL/L (3.5-5.1); SODIUM LEVEL 129 MMOL/L (136-145)
[2024-02-18] MEDS ORDERED: LEVO1TAB40 PO (21:20)
[2024-02-18] MEDS: cefTRIAXone SOD 1 GM in D5W MINI-BAG PLUS 50 ML IV ONE (21:25)
[2024-02-18 22:19] VITALS: BP 135/81; TEMP 97.4; O2SAT 98
== END 2024-02-18 22:28 | disposition home or self-care (01) ==
LOC: EDBD 16:06 → M ED 16:06
DX: N10 Acute pyelonephritis (principal); N28.1 Cyst of kidney, acquired; K21.9 Gastro-esophageal reflux disease without esophagitis; F31.9 Bipolar disorder, unspecified; M54.50 Low back pain, unspecified; Z79.52 Long term (current) use of systemic steroids; Z79.811 Long term (current) use of aromatase inhibitors; Z79.83 Long term (current) use of bisphosphonates; Z79.899 Other long term (current) drug therapy; Z88.5 Allergy status to narcotic agent; Z88.8 Allergy status to other drugs, medicaments and biological substances; Z91.048 Other nonmedicinal substance allergy status
CPT/HCPCS: 74176; 80047; 80053; 81001; 83690; 85025; 87088; 87186; 96361; 96374; 96375; 96376; 99284; J0696; J1885

== ENCOUNTER → 2024-03-03 | Outpatient (CLI) | payer MEDICARE, MEDICAID ==
[~2024-03-03] MED LIST changes: +LEVO1TAB40 PO
== END ==
LOC: M LAB 10:13
PROVIDERS: ATTEND Physician Assistant
DX: Z12.5 Encounter for screening for malignant neoplasm of prostate (principal)
CPT/HCPCS: 36415; G0103

== ENCOUNTER 2024-03-31 00:19 | Inpatient (IN) | payer MEDICARE, MEDICAID ==
[2024-03-31] VITALS (14 sets, daily range): BP systolic 96–152; BP diastolic 60–86; TEMP 97.1–98.8; O2SAT 87–98
[~2024-03-31] VITALS: Ht 185.4 cm; Wt 98.5 kg
[2024-03-31 01:05] LABS: BASO % 0.4 % (0.0-1.0); EOS # 0.4 10^3/uL (0.0-0.5); EOS % 6.3 % (0.0-3.0); HEMOGLOBIN 12.7 g/dl (13.5-17.5); LYMPH # 1.7 10^3/uL (1.5-5.0); LYMPH % 29.8 % (24.0-44.0); MEAN CORPUSCULAR HEMOGLOBIN 33.7 pg (27.0-33.0); MEAN CORPUSCULAR HGB CONC 36.3 g/dl (32.0-36.5); MEAN CORPUSCULAR VOLUME 92.8 fl (80.0-96.0); MONO # 0.4 10^3/uL (0.0-0.8); MONO % 7.9 % (2.0-8.0); NEUTROPHILS % 53.5 % (36.0-66.0); PLATELET COUNT, AUTOMATED 214 10^3/uL (150-450); RED BLOOD COUNT 3.77 10^6/uL (4.30-6.10); WHITE BLOOD COUNT 5.6 10^3/uL (4.0-10.0)
[2024-03-31 01:21] LABS: ETHYL ALCOHOL (ETHANOL) 0.273 % (0.000-0.010)
[2024-03-31 01:29] LABS: ALKALINE PHOSPHATASE 57 U/L (46-116); ALT/SGPT 9 U/L (7.0-40); AST/SGOT 12 U/L (<34); BILIRUBIN,DIRECT 0.2 MG/DL (<0.4); BILIRUBIN,TOTAL 0.4 MG/DL (0.3-1.2); BLOOD UREA NITROGEN < 5 MG/DL (9-23); CALCIUM LEVEL 7.9 MG/DL (8.3-10.6); CARBON DIOXIDE LEVEL 22 MMOL/L (20-31); CHLORIDE LEVEL 87 MMOL/L (98-107); CK-MB VALUE MASS 3.2 NG/ML (<3.6); CPK CREATINE PHOSPHOKINASE 179 U/L (46-171); CREATININE FOR GFR 0.47 MG/DL (0.70-1.30); GLOMERULAR FILTRATION RATE > 60.0 (>49); GLUCOSE, FASTING 84 MG/DL (74-106); MB/CK RELATIVE INDEX 1.78 (< OR =4); POTASSIUM SERUM 4.3 MMOL/L (3.5-5.1); SODIUM LEVEL 116 MMOL/L (136-145); THYROID STIMULATING HORMONE 1.751 uIU/ML (0.55-4.78); TOTAL PROTEIN 5.6 G/DL (5.7-8.2)
[2024-03-31] MEDS: NS 500 ML IV ONE (02:57)
[2024-03-31 03:35] LABS: MAGNESIUM LEVEL 1.1 MG/DL (1.8-2.4)
[2024-03-31] MEDS: MAG SULF 1GM/100ML (MAG RUN) 1 GM in IV 1 EA IV SCH ×2 (04:21→20:22)
[2024-03-31] MEDS ORDERED: MOM 30ML SUSPENSION UDC PO PRN (04:25)
[2024-03-31] MEDS ORDERED: MAALOX 30 ML SUSP *UDC PO PRN (04:25)
[2024-03-31] MEDS ORDERED: NICOTINE 21MG/24HR 1 EA TRANSDERMAL TD PRN (04:25)
[2024-03-31 04:46] LABS: AMPHETAMINES LEVEL URINE NEGATIVE (NEGATIVE); BARBITURATES URINE NEGATIVE (NEGATIVE); BENZODIAZEPINES URINE NEGATIVE (NEGATIVE); COCAINE METABOLITE URINE NEGATIVE (NEGATIVE); METHADONE URINE NEGATIVE (NEGATIVE); OPIATES URINE NEGATIVE (NEGATIVE); PHENCYCLIDINE URINE NEGATIVE (NEGATIVE)
[2024-03-31 04:51] LABS: CANNABINOIDS URINE POSITIVE (NEGATIVE)
[2024-03-31] MEDS ORDERED: HOME MED LIST COMPLETE! XX SCH (04:55)
[2024-03-31] MEDS: OXAZEPAM 15MG CAP PO SCH (06:00)
[2024-03-31 08:42] LABS: BLOOD UREA NITROGEN < 5 MG/DL (9-23); CALCIUM LEVEL 8.4 MG/DL (8.3-10.6); CARBON DIOXIDE LEVEL 25 MMOL/L (20-31); CHLORIDE LEVEL 96 MMOL/L (98-107); CREATININE FOR GFR 0.53 MG/DL (0.70-1.30); GLOMERULAR FILTRATION RATE > 60.0 (>49); GLUCOSE, FASTING 80 MG/DL (74-106); MAGNESIUM LEVEL 1.9 MG/DL (1.8-2.4); POTASSIUM SERUM 3.7 MMOL/L (3.5-5.1); SODIUM LEVEL 128 MMOL/L (136-145)
[2024-03-31] MEDS: D5W 1,000 ML IV SCH (09:11)
[2024-03-31] MEDS: MULTIVITAMINS/MINERALS THERAP 1 TAB PO SCH (09:27)
[2024-03-31] MEDS: DOCUSATE SODIUM 100MG CAPSULE PO SCH (09:28)
[2024-03-31] MEDS: FOLIC ACID 1MG TAB PO SCH (09:28)
[2024-03-31] MEDS: HEPARIN SOD (PORCINE) 5000UNITS/ML 1ML VIAL/SYRINGE SC SCH (09:28)
[2024-03-31] MEDS: THIAMINE 100 MG TAB PO SCH (09:28)
[2024-03-31 12:47] LABS: BLOOD UREA NITROGEN < 5 MG/DL (9-23); CALCIUM LEVEL 8.3 MG/DL (8.3-10.6); CARBON DIOXIDE LEVEL 24 MMOL/L (20-31); CHLORIDE LEVEL 95 MMOL/L (98-107); CREATININE FOR GFR 0.45 MG/DL (0.70-1.30); GLOMERULAR FILTRATION RATE > 60.0 (>49); GLUCOSE, FASTING 115 MG/DL (74-106); POTASSIUM SERUM 3.5 MMOL/L (3.5-5.1); SODIUM LEVEL 127 MMOL/L (136-145)
[2024-03-31 17:07] LABS: BLOOD UREA NITROGEN < 5 MG/DL (9-23); CARBON DIOXIDE LEVEL 26 MMOL/L (20-31); CHLORIDE LEVEL 94 MMOL/L (98-107); CREATININE FOR GFR 0.46 MG/DL (0.70-1.30); GLOMERULAR FILTRATION RATE > 60.0 (>49); GLUCOSE, FASTING 125 MG/DL (74-106); MAGNESIUM LEVEL 1.4 MG/DL (1.8-2.4); POTASSIUM SERUM 3.9 MMOL/L (3.5-5.1); SODIUM LEVEL 124 MMOL/L (136-145)
[2024-03-31] MEDS ORDERED: IPRATROPIUM 0.5MG/ALBUTEROL 2.5MG INH SOL UD 3ML (DUONEB) NEB PRN (17:20)
[2024-03-31] MEDS: CREON-12 CAPSULE PO SCH (18:00)
[2024-03-31] MEDS: SALMETEROL DISKUS 50MCG INHALER (SEREVENT) INH SCH (20:16)
[2024-03-31] MEDS: DIVALPROEX 500 MG TAB PO SCH (20:23)
[2024-03-31] MEDS: traZODone 50 MG TAB PO SCH (20:23)
[2024-03-31 20:47] LABS: BLOOD UREA NITROGEN < 5 MG/DL (9-23); CALCIUM LEVEL 8.4 MG/DL (8.3-10.6); CARBON DIOXIDE LEVEL 26 MMOL/L (20-31); CHLORIDE LEVEL 94 MMOL/L (98-107); CREATININE FOR GFR 0.52 MG/DL (0.70-1.30); GLOMERULAR FILTRATION RATE > 60.0 (>49); GLUCOSE, FASTING 150 MG/DL (74-106); POTASSIUM SERUM 3.6 MMOL/L (3.5-5.1); SODIUM LEVEL 126 MMOL/L (136-145)
[2024-04-01] VITALS (8 sets, daily range): BP systolic 115–138; BP diastolic 67–79; TEMP 97.5–97.6; O2SAT 97–100
[2024-04-01] MEDS: ACETAMINOPHEN TAB 650MG DOSE (2X325MG) PO PRN (00:04)
[2024-04-01 00:49] LABS: BLOOD UREA NITROGEN < 5 MG/DL (9-23); CALCIUM LEVEL 8.7 MG/DL (8.3-10.6); CARBON DIOXIDE LEVEL 28 MMOL/L (20-31); CHLORIDE LEVEL 94 MMOL/L (98-107); CREATININE FOR GFR 0.51 MG/DL (0.70-1.30); GLOMERULAR FILTRATION RATE > 60.0 (>49); GLUCOSE, FASTING 118 MG/DL (74-106); POTASSIUM SERUM 3.8 MMOL/L (3.5-5.1); SODIUM LEVEL 126 MMOL/L (136-145)
[2024-04-01] MEDS: LORazepam 2 MG TAB PO PRN (04:21)
[2024-04-01 04:58] LABS: BLOOD UREA NITROGEN 5 MG/DL (9-23); CALCIUM LEVEL 8.4 MG/DL (8.3-10.6); CARBON DIOXIDE LEVEL 28 MMOL/L (20-31); CHLORIDE LEVEL 94 MMOL/L (98-107); CREATININE FOR GFR 0.46 MG/DL (0.70-1.30); GLOMERULAR FILTRATION RATE > 60.0 (>49); GLUCOSE, FASTING 102 MG/DL (74-106); SODIUM LEVEL 126 MMOL/L (136-145)
[2024-04-01] MEDS: OXAZEPAM 15MG CAP PO SCH (06:06)
[2024-04-01] MEDS ORDERED: NS 1,000 ML IV SCH (07:10)
[2024-04-01] MEDS ORDERED: TIOTROPIUM INHALER/CAPSULE (SPIRIVA) INH SCH (08:00)
[2024-04-01] MEDS ORDERED: PRAVASTATIN 20 MG TAB PO SCH (09:00)
[2024-04-01] MEDS ORDERED: MAGNESIUM OXIDE 400MG TAB (MAG-OX) PO SCH (09:00)
[2024-04-01] MEDS ORDERED: SODIUM CHLORIDE 1 GM TAB PO SCH (09:00)
[2024-04-01] MEDS ORDERED: lisinopriL 40MG TAB PO SCH (21:00)
== END 2024-04-01 07:50 | disposition left against medical advice (07) | DRG 641 ==
LOC: M ED 00:19 → EDBD 00:19 → M ED INP 04:24 → M ICU 08:50
PROVIDERS: ADMIT Family Medicine; ATTEND Internal Medicine
DX: E87.1 Hypo-osmolality and hyponatremia (principal); J44.9 Chronic obstructive pulmonary disease, unspecified; F31.9 Bipolar disorder, unspecified; E78.5 Hyperlipidemia, unspecified; K86.89 Other specified diseases of pancreas; F10.229 Alcohol dependence with intoxication, unspecified; E83.42 Hypomagnesemia; K21.9 Gastro-esophageal reflux disease without esophagitis; I10 Essential (primary) hypertension; Z88.8 Allergy status to other drugs, medicaments and biological substances; Z79.899 Other long term (current) drug therapy

== ENCOUNTER 2024-04-27 14:15 | Emergency (ER) | payer MEDICARE, MEDICAID ==
[~2024-04-27] VITALS: Ht 188 cm; Wt 104.5 kg
[2024-04-27 17:14] LABS: BASO % 0.3 % (0.0-1.0); EOS # 0.1 10^3/uL (0.0-0.5); EOS % 0.8 % (0.0-3.0); HEMOGLOBIN 12.7 g/dl (13.5-17.5); LYMPH # 1.3 10^3/uL (1.5-5.0); LYMPH % 19.8 % (24.0-44.0); MEAN CORPUSCULAR HEMOGLOBIN 33.9 pg (27.0-33.0); MEAN CORPUSCULAR HGB CONC 36.3 g/dl (32.0-36.5); MEAN CORPUSCULAR VOLUME 93.3 fl (80.0-96.0); MONO # 0.8 10^3/uL (0.0-0.8); MONO % 12.4 % (2.0-8.0); NEUTROPHILS % 63.5 % (36.0-66.0); PLATELET COUNT, AUTOMATED 177 10^3/uL (150-450); RED BLOOD COUNT 3.75 10^6/uL (4.30-6.10); WHITE BLOOD COUNT 6.3 10^3/uL (4.0-10.0)
[2024-04-27] MEDS ORDERED: ISOVUE-370 76% 100ML VIAL As Ordered ONE (17:37)
[2024-04-27 17:40] LABS: LIPASE 17 U/L (12-53)
[2024-04-27 17:53] LABS: ALBUMIN 3.1 G/DL (3.2-5.2); ALKALINE PHOSPHATASE 69 U/L (46-116); ALT/SGPT 13 U/L (7.0-40); AST/SGOT 15 U/L (<34); BILIRUBIN,DIRECT 0.3 MG/DL (<0.4); BILIRUBIN,TOTAL 0.5 MG/DL (0.3-1.2); BLOOD UREA NITROGEN 5 MG/DL (9-23); CALCIUM LEVEL 7.9 MG/DL (8.3-10.6); CARBON DIOXIDE LEVEL 22 MMOL/L (20-31); CHLORIDE LEVEL 91 MMOL/L (98-107); CREATININE FOR GFR 0.46 MG/DL (0.70-1.30); GLOMERULAR FILTRATION RATE > 60.0 (>49); GLUCOSE, FASTING 82 MG/DL (74-106); POTASSIUM SERUM 3.9 MMOL/L (3.5-5.1); SODIUM LEVEL 120 MMOL/L (136-145); TOTAL PROTEIN 5.8 G/DL (5.7-8.2)
[2024-04-27 20:54] VITALS: BP 123/74; TEMP 97.3; O2SAT 96
== END 2024-04-27 23:00 | disposition left against medical advice (07) ==
LOC: EDBD 14:15 → M ED 14:15
DX: K52.9 Noninfective gastroenteritis and colitis, unspecified (principal); K59.00 Constipation, unspecified; E87.1 Hypo-osmolality and hyponatremia; J44.9 Chronic obstructive pulmonary disease, unspecified; K21.9 Gastro-esophageal reflux disease without esophagitis; I10 Essential (primary) hypertension; F31.9 Bipolar disorder, unspecified; K57.90 Diverticulosis of intestine, part unspecified, without perforation or abscess without bleeding; F10.10 Alcohol abuse, uncomplicated; Z88.5 Allergy status to narcotic agent; Z88.8 Allergy status to other drugs, medicaments and biological substances; Z91.048 Other nonmedicinal substance allergy status; Z79.52 Long term (current) use of systemic steroids; Z79.811 Long term (current) use of aromatase inhibitors; Z79.899 Other long term (current) drug therapy; Z53.9 Procedure and treatment not carried out, unspecified reason
CPT/HCPCS: 36415; 72148; 74177; 80047; 80048; 80076; 83605; 83690; 85025; 87507; 99284; Q9967

== ENCOUNTER 2024-05-10 23:57 | Emergency (ER) | payer MEDICARE, MEDICAID ==
[~2024-05-10] VITALS: Ht 185.4 cm; Wt 104.5 kg
[~2024-05-10 23:57] MED LIST changes: +GABA-1172 PO; -GABA-282 PO
[2024-05-11 00:12] VITALS: TEMP 96.5
[2024-05-11 06:27] VITALS: O2SAT 93
[2024-05-11 06:31] VITALS: BP 121/73
== END 2024-05-11 07:05 | disposition home or self-care (01) ==
LOC: M ED 05-11 07:00
DX: F10.129 Alcohol abuse with intoxication, unspecified (principal); I10 Essential (primary) hypertension; K21.9 Gastro-esophageal reflux disease without esophagitis; E78.5 Hyperlipidemia, unspecified; Z88.5 Allergy status to narcotic agent; Z88.8 Allergy status to other drugs, medicaments and biological substances; Z91.048 Other nonmedicinal substance allergy status; Z79.52 Long term (current) use of systemic steroids; Z79.811 Long term (current) use of aromatase inhibitors; Z79.899 Other long term (current) drug therapy

== ENCOUNTER 2024-07-18 10:04 | Emergency (ER) | payer MEDICARE, MEDICAID ==
[~2024-07-18] VITALS: Ht 188 cm; Wt 104.5 kg
[2024-07-18] MEDS: LIDOCAINE 2% 5ML JELLY UROJET TOP ONE (14:25)
[2024-07-18 16:52] VITALS: BP 107/70; TEMP 98.1; O2SAT 96
== END 2024-07-18 17:24 | disposition home or self-care (01) ==
LOC: M ED 10:04 → EDBD 10:04 → M ED 17:24
DX: M79.671 Pain in right foot (principal); M79.672 Pain in left foot; I10 Essential (primary) hypertension; F31.9 Bipolar disorder, unspecified; F10.10 Alcohol abuse, uncomplicated; F17.200 Nicotine dependence, unspecified, uncomplicated; Z88.5 Allergy status to narcotic agent; Z91.048 Other nonmedicinal substance allergy status; Z79.52 Long term (current) use of systemic steroids; Z79.811 Long term (current) use of aromatase inhibitors; Z79.899 Other long term (current) drug therapy

== ENCOUNTER 2024-08-12 15:43 | Observation (INO) | payer MEDICARE, MEDICAID ==
[~2024-08-12] VITALS: Ht 188 cm; Wt 82.4 kg
[~2024-08-12 15:43] MED LIST changes: -CYCL5TAB PO; +CYCL5TAB4 PO
[2024-08-12] MEDS ORDERED: GABA-1172 (15:55)
[2024-08-12 17:32] LABS: BASO % 0.4 % (0.0-1.0); EOS # 0.1 10^3/uL (0.0-0.5); EOS % 2.2 % (0.0-3.0); HEMATOCRIT 32.8 % (42.0-52.0); HEMOGLOBIN 11.6 g/dl (13.5-17.5); LYMPH # 1.7 10^3/uL (1.5-5.0); LYMPH % 35.3 % (24.0-44.0); MEAN CORPUSCULAR HEMOGLOBIN 33.6 pg (27.0-33.0); MEAN CORPUSCULAR HGB CONC 35.4 g/dl (32.0-36.5); MEAN CORPUSCULAR VOLUME 95.1 fl (80.0-96.0); MONO # 0.4 10^3/uL (0.0-0.8); MONO % 7.8 % (2.0-8.0); NEUTROPHILS # 2.6 10^3/uL (1.5-8.5); NEUTROPHILS % 53.7 % (36.0-66.0); PLATELET COUNT, AUTOMATED 196 10^3/uL (150-450); RED BLOOD COUNT 3.45 10^6/uL (4.30-6.10); WHITE BLOOD COUNT 4.9 10^3/uL (4.0-10.0)
[2024-08-12] MEDS: NS 500 ML IV ONE (17:43)
[2024-08-12 17:48] LABS: ALBUMIN 2.4 G/DL (3.2-5.2); ALKALINE PHOSPHATASE 108 U/L (40-129); ALT/SGPT < 9 U/L (7.0-40); AST/SGOT 19 U/L (<34); BILIRUBIN,DIRECT 0.2 MG/DL (<0.4); BILIRUBIN,TOTAL 0.4 MG/DL (0.3-1.2); BLOOD UREA NITROGEN < 5 MG/DL (9-23); CALCIUM LEVEL 8.3 MG/DL (8.3-10.6); CARBON DIOXIDE LEVEL 25 MMOL/L (20-31); CHLORIDE LEVEL 91 MMOL/L (98-107); CK-MB VALUE MASS < 1.0 NG/ML (<3.6); CPK CREATINE PHOSPHOKINASE 36 U/L (46-171); CREATININE FOR GFR 0.38 MG/DL (0.70-1.30); GLOMERULAR FILTRATION RATE > 60.0 (>49); GLUCOSE, FASTING 91 MG/DL (74-106); MB/CK RELATIVE INDEX 2.77 (< OR =4); POTASSIUM SERUM 3.9 MMOL/L (3.5-5.1); SODIUM LEVEL 123 MMOL/L (136-145); TOTAL PROTEIN 5.9 G/DL (5.7-8.2)
[2024-08-12 18:45] LABS: OSMOLALITY URINE 193 MOSM/KG (50-1400)
[2024-08-12 18:51] LABS: OSMOLALITY SERUM 310 MOSM/KG (280-301)
[2024-08-12] MEDS ORDERED: med rec comment (18:58)
[2024-08-12] MEDS ORDERED: HOME MED LIST COMPLETE! XX SCH (19:00)
[2024-08-12 19:05] LABS: CREATININE,RANDOM URINE 31.4 MG/DL; SODIUM,RANDOM URINE < 10 MMOL/L
[2024-08-12] MEDS: MAG SULF 1GM/100ML (MAG RUN) 1 GM in IV 1 EA IV ONE (19:27)
[2024-08-12] MEDS ORDERED: MAGNESIUM SULFATE IN WATER 2 GM in IV 1 EA IV STA (20:27)
[2024-08-12] MEDS: MAG SULF 1GM/100ML (MAG RUN) 1 GM in IV 1 EA IV SCH (22:15)
[2024-08-12 23:22] LABS: ETHYL ALCOHOL (ETHANOL) 0.268 % (0.000-0.010)
[2024-08-13] MEDS: THIAMINE 200MG 2ML VIAL IV ONE (00:30)
[2024-08-13 03:37] LABS: BLOOD UREA NITROGEN < 5 MG/DL (9-23); CALCIUM LEVEL 8.1 MG/DL (8.3-10.6); CARBON DIOXIDE LEVEL 26 MMOL/L (20-31); CHLORIDE LEVEL 98 MMOL/L (98-107); CREATININE FOR GFR 0.39 MG/DL (0.70-1.30); GLOMERULAR FILTRATION RATE > 60.0 (>49); GLUCOSE, FASTING 75 MG/DL (74-106); MAGNESIUM LEVEL 1.7 MG/DL (1.8-2.4); POTASSIUM SERUM 3.4 MMOL/L (3.5-5.1); SODIUM LEVEL 130 MMOL/L (136-145)
[2024-08-13] MEDS: MAGNESIUM OXIDE 400MG TAB (MAG-OX) PO ONE (05:47)
[2024-08-13] MEDS: POTASSIUM CHLORIDE 10% LIQ 20MEQ/15ML UDC PO ONE (05:47)
[2024-08-13] MEDS: LORazepam 2 MG TAB PO STA (08:19)
[2024-08-13] MEDS ORDERED: FOLIC ACID 1MG TAB PO SCH (09:00)
[2024-08-13 09:45] LABS: HEMATOCRIT 34.9 % (42.0-52.0); HEMOGLOBIN 12.4 g/dl (13.5-17.5); MEAN CORPUSCULAR HEMOGLOBIN 33.4 pg (27.0-33.0); MEAN CORPUSCULAR HGB CONC 35.5 g/dl (32.0-36.5); MEAN CORPUSCULAR VOLUME 94.1 fl (80.0-96.0); PLATELET COUNT, AUTOMATED 216 10^3/uL (150-450); RED BLOOD COUNT 3.71 10^6/uL (4.30-6.10); WHITE BLOOD COUNT 8.3 10^3/uL (4.0-10.0)
[2024-08-13 10:09] LABS: BLOOD UREA NITROGEN 6 MG/DL (9-23); CALCIUM LEVEL 8.7 MG/DL (8.3-10.6); CALCIUM LEVEL 8.9 MG/DL (8.3-10.6); CARBON DIOXIDE LEVEL 25 MMOL/L (20-31); CHLORIDE LEVEL 100 MMOL/L (98-107); CHLORIDE LEVEL 98 MMOL/L (98-107); CREATININE FOR GFR 0.43 MG/DL (0.70-1.30); GLOMERULAR FILTRATION RATE > 60.0 (>49); GLUCOSE, FASTING 105 MG/DL (74-106); GLUCOSE, FASTING 106 MG/DL (74-106); POTASSIUM SERUM 4.7 MMOL/L (3.5-5.1); SODIUM LEVEL 130 MMOL/L (136-145); SODIUM LEVEL 131 MMOL/L (136-145)
[2024-08-13] MEDS: CREON-12 CAPSULE (PANCRELIPASE) PO SCH (13:50)
[2024-08-13] MEDS: DIVALPROEX 500 MG TAB PO SCH (14:12)
[2024-08-13] MEDS: MULTIVITAMINS/MINERALS THERAP 1 TAB PO SCH (14:15)
[2024-08-13] MEDS: MAGNESIUM OXIDE 400MG TAB (MAG-OX) PO SCH (14:15)
[2024-08-13] MEDS: FOLIC ACID 1MG TAB PO SCH (14:15)
[2024-08-13] MEDS: PRAVASTATIN 20 MG TAB PO SCH (14:15)
[2024-08-13 16:06] VITALS: BP 107/87; TEMP 97.7; O2SAT 98
[2024-08-13] MEDS: OXAZEPAM 15MG CAP PO SCH (16:21)
[2024-08-13] MEDS: SYMBICORT 80/4.5MCG INHALER 6GM INH SCH (19:17)
[2024-08-13 20:20] VITALS: BP 106/86; TEMP 97.2; O2SAT 96
[2024-08-13] MEDS ORDERED: lisinopriL 40MG TAB PO SCH (21:00)
[2024-08-13] MEDS: THIAMINE 100 MG TAB PO SCH (21:10)
[2024-08-13] MEDS: traZODone 50 MG TAB PO SCH (21:15)
[2024-08-13 23:47] VITALS: BP 105/78; O2SAT 95
[2024-08-13 23:48] VITALS: BP 105/78
[2024-08-14] VITALS (7 sets, daily range): BP systolic 102–147; BP diastolic 74–107; TEMP 97–97.9; O2SAT 95–97
[2024-08-14] MEDS: LORazepam 2 MG TAB PO PRN (02:35)
[2024-08-14 06:12] LABS: HEMATOCRIT 32.5 % (42.0-52.0); HEMOGLOBIN 11.3 g/dl (13.5-17.5); MEAN CORPUSCULAR HGB CONC 34.8 g/dl (32.0-36.5); MEAN CORPUSCULAR VOLUME 97.9 fl (80.0-96.0); PLATELET COUNT, AUTOMATED 132 10^3/uL (150-450); RED BLOOD COUNT 3.32 10^6/uL (4.30-6.10); WHITE BLOOD COUNT 4.4 10^3/uL (4.0-10.0)
[2024-08-14 06:39] LABS: BLOOD UREA NITROGEN 6 MG/DL (9-23); CALCIUM LEVEL 8.7 MG/DL (8.3-10.6); CARBON DIOXIDE LEVEL 26 MMOL/L (20-31); CHLORIDE LEVEL 100 MMOL/L (98-107); CREATININE FOR GFR 0.47 MG/DL (0.70-1.30); GLOMERULAR FILTRATION RATE > 60.0 (>49); GLUCOSE, FASTING 89 MG/DL (74-106); POTASSIUM SERUM 3.9 MMOL/L (3.5-5.1); SODIUM LEVEL 131 MMOL/L (136-145)
[2024-08-14] MEDS: TIOTROPIUM INHALER/CAPSULE (SPIRIVA) INH SCH (07:58)
[2024-08-14] MEDS: ENOXAPARIN 40MG/0.4ML SYRINGE (J1650 PER 10MG) SC SCH (08:25)
[2024-08-14] MEDS: cefTRIAXone SOD 1 GM in DEXTROSE 5% (D5W) ADV/MINI-BAG 50 ML IV SCH (08:26)
[2024-08-14] MEDS ORDERED: KETOROLAC 30 MG/ML 1ML VIAL IV PRN (22:10)
[2024-08-14] MEDS ORDERED: ACETAMINOPHEN 325 MG TAB PO PRN (22:15)
[2024-08-14] MEDS: KETOROLAC 30 MG/ML 1ML VIAL IV PRN (22:20)
[2024-08-15 04:00] VITALS: BP 120/68; TEMP 97.5; O2SAT 94
[2024-08-15 04:52] LABS: BASO % 0.3 % (0.0-1.0); EOS % 0.6 % (0.0-3.0); HEMATOCRIT 31.6 % (42.0-52.0); HEMOGLOBIN 10.9 g/dl (13.5-17.5); LYMPH % 28.3 % (24.0-44.0); MEAN CORPUSCULAR HEMOGLOBIN 33.3 pg (27.0-33.0); MEAN CORPUSCULAR HGB CONC 34.5 g/dl (32.0-36.5); MEAN CORPUSCULAR VOLUME 96.6 fl (80.0-96.0); MONO # 0.4 10^3/uL (0.0-0.8); MONO % 11.4 % (2.0-8.0); NEUTROPHILS # 2.1 10^3/uL (1.5-8.5); NEUTROPHILS % 58.8 % (36.0-66.0); PLATELET COUNT, AUTOMATED 129 10^3/uL (150-450); RED BLOOD COUNT 3.27 10^6/uL (4.30-6.10); WHITE BLOOD COUNT 3.6 10^3/uL (4.0-10.0)
[2024-08-15 05:31] LABS: BLOOD UREA NITROGEN < 5 MG/DL (9-23); CALCIUM LEVEL 8.9 MG/DL (8.3-10.6); CARBON DIOXIDE LEVEL 28 MMOL/L (20-31); CHLORIDE LEVEL 98 MMOL/L (98-107); CREATININE FOR GFR 0.53 MG/DL (0.70-1.30); GLOMERULAR FILTRATION RATE > 60.0 (>49); GLUCOSE, FASTING 89 MG/DL (74-106); MAGNESIUM LEVEL 1.6 MG/DL (1.8-2.4); POTASSIUM SERUM 3.5 MMOL/L (3.5-5.1); SODIUM LEVEL 130 MMOL/L (136-145)
[2024-08-15] MEDS: ACETAMINOPHEN 500 MG TAB PO SCH (08:56)
[2024-08-15] MEDS: MAG SULF 1GM/100ML (MAG RUN) 1 GM in IV 1 EA IV SCH (08:56)
[2024-08-15] MEDS: LIDOCAINE 5% (LIDODERM) PATCH TD SCH (08:57)
[2024-08-15] MEDS: CREON-24 CAPSULE (PANCRELIPASE) PO SCH (11:40)
[2024-08-15 12:01] VITALS: BP 136/94; TEMP 97.2; O2SAT 94
[2024-08-15] MEDS: DOCUSATE SODIUM 100MG CAPSULE PO SCH (12:46)
[2024-08-15] MEDS: ONDANSETRON 4MG 2ML VIAL IV PRN (14:35)
[2024-08-15] MEDS: PANTOPRAZOLE 40MG VIAL IV ONE (14:35)
[2024-08-15 20:41] VITALS: BP 134/94; TEMP 97.8; O2SAT 98
[2024-08-15] MEDS: CYCLOBENZAPRINE 5MG TABLET PO PRN (23:53)
[2024-08-15] MEDS: MAALOX 30 ML SUSP *UDC PO PRN (23:53)
[2024-08-16 04:22] VITALS: BP 123/87; TEMP 97.9; O2SAT 98
[2024-08-16 05:12] LABS: BASO % 0.3 % (0.0-1.0); HEMATOCRIT 33.3 % (42.0-52.0); HEMOGLOBIN 11.8 g/dl (13.5-17.5); LYMPH # 0.9 10^3/uL (1.5-5.0); LYMPH % 29.1 % (24.0-44.0); MEAN CORPUSCULAR HEMOGLOBIN 33.7 pg (27.0-33.0); MEAN CORPUSCULAR HGB CONC 35.4 g/dl (32.0-36.5); MEAN CORPUSCULAR VOLUME 95.1 fl (80.0-96.0); MONO # 0.3 10^3/uL (0.0-0.8); MONO % 10.2 % (2.0-8.0); NEUTROPHILS # 1.9 10^3/uL (1.5-8.5); NEUTROPHILS % 59.8 % (36.0-66.0); PLATELET COUNT, AUTOMATED 150 10^3/uL (150-450); WHITE BLOOD COUNT 3.2 10^3/uL (4.0-10.0)
[2024-08-16 05:24] LABS: BLOOD UREA NITROGEN 6 MG/DL (9-23); CALCIUM LEVEL 8.8 MG/DL (8.3-10.6); CARBON DIOXIDE LEVEL 27 MMOL/L (20-31); CHLORIDE LEVEL 99 MMOL/L (98-107); CREATININE FOR GFR 0.43 MG/DL (0.70-1.30); GLOMERULAR FILTRATION RATE > 60.0 (>49); GLUCOSE, FASTING 105 MG/DL (74-106); MAGNESIUM LEVEL 1.9 MG/DL (1.8-2.4); POTASSIUM SERUM 3.5 MMOL/L (3.5-5.1); SODIUM LEVEL 130 MMOL/L (136-145)
[2024-08-16] MEDS ORDERED: ONDANSETRON 4MG TAB PO PRN (11:55)
[2024-08-16 12:00] VITALS: BP 100/66; TEMP 97; O2SAT 95
[2024-08-16] MEDS: PANTOPRAZOLE 40MG TAB (PROTONIX) PO SCH (12:15)
[2024-08-16] MEDS: SUCRALFATE 1 GM TAB PO SCH (12:15)
[2024-08-16] MEDS: SENOKOT S TAB PO SCH (20:08)
[2024-08-16 20:19] VITALS: BP 133/94; TEMP 96.8; O2SAT 96
[2024-08-17 01:46] VITALS: BP 134/94; TEMP 96.8; O2SAT 97
[2024-08-17] MEDS: oxyCODONE 5MG TAB PO PRN (01:51)
[2024-08-17 04:06] VITALS: BP 124/87; TEMP 97.7; O2SAT 99
[2024-08-17] MEDS: LevoFLOXacin 750 MG TABLET PO SCH (05:04)
[2024-08-17] MEDS: THIAMINE 100 MG TAB PO SCH (08:54)
[2024-08-17 11:01] VITALS: BP 124/87; TEMP 97.7; O2SAT 99
[2024-08-18 03:47] VITALS: BP 120/84; TEMP 97.3; O2SAT 98
[2024-08-18] MEDS: COMBIVENT RESPIMAT 100-20MCG INHALER 4GM INH PRN (19:57)
[2024-08-19 03:00] VITALS: BP 125/88; TEMP 97.3; O2SAT 97
[2024-08-19 05:17] VITALS: O2SAT 97
[2024-08-19] MEDS: MIRALAX *UNIT DOSE* 17GM PACKET PO PRN (20:59)
[2024-08-20 05:22] VITALS: BP 103/71; TEMP 97.2; O2SAT 96
[2024-08-20] MEDS: BISACODYL 10MG SUPP PR PRN (05:27)
[2024-08-21 04:00] VITALS: BP 121/86; TEMP 97.3; O2SAT 98
[2024-08-21] MEDS ORDERED: MAGN400T2 PO (12:02)
[2024-08-21] MEDS ORDERED: PANT40TA29 PO (12:02)
[2024-08-21] MEDS ORDERED: CYCL5TAB4 PO (12:02)
[2024-08-21] MEDS ORDERED: THIA100TA PO (12:02)
[2024-08-21] MEDS ORDERED: SENN-52 PO (12:02)
[2024-08-21] MEDS ORDERED: SUCR1TA PO (12:02)
[2024-08-21] MEDS ORDERED: LIDO5TD TD (12:02)
[2024-08-21] MEDS ORDERED: OXYC-517 PO (12:02)
[2024-08-21] MEDS ORDERED: MIRA33506 PO (12:02)
[2024-08-22 04:00] VITALS: BP 100/72; TEMP 98.2; O2SAT 98
[2024-08-22] MEDS: oxyCODONE 5MG TAB PO PRN (20:30)
[2024-08-23 04:20] VITALS: BP 100/72; TEMP 97.5; O2SAT 92
[2024-08-23] MEDS: ACETAMINOPHEN 325 MG TAB PO PRN (20:17)
[2024-08-24 05:47] VITALS: BP 120/84; TEMP 97.3; O2SAT 95
[2024-08-25 04:36] VITALS: BP 114/83; TEMP 97.7; O2SAT 99
== END 2024-08-25 16:11 ==
LOC: M ED 15:43 → EDBD 15:43 → M ED INP 08-13 13:52 → M MSPAV 08-13 15:54
PROVIDERS: ADMIT Internal Medicine; ATTEND Internal Medicine
DX: F10.239 Alcohol dependence with withdrawal, unspecified (principal); R53.1 Weakness; M51.360 Other intervertebral disc degeneration, lumbar region with discogenic back pain only; N31.9 Neuromuscular dysfunction of bladder, unspecified; T83.511A Infection and inflammatory reaction due to indwelling urethral catheter, initial encounter; D61.818 Other pancytopenia; E87.1 Hypo-osmolality and hyponatremia; E83.42 Hypomagnesemia; I10 Essential (primary) hypertension; E78.5 Hyperlipidemia, unspecified; J44.9 Chronic obstructive pulmonary disease, unspecified; F31.9 Bipolar disorder, unspecified; F32.A Depression, unspecified; G47.00 Insomnia, unspecified; K86.81 Exocrine pancreatic insufficiency; K59.00 Constipation, unspecified; K21.9 Gastro-esophageal reflux disease without esophagitis; Z79.899 Other long term (current) drug therapy; J30.2 Other seasonal allergic rhinitis; Z88.5 Allergy status to narcotic agent; Z88.8 Allergy status to other drugs, medicaments and biological substances; K29.70 Gastritis, unspecified, without bleeding
CPT/HCPCS: 36415; 51701; 51702; 70450; 71045; 72110; 73630; 76775; 80048; 80076; 81001; 82077; 82550; 82553; 82570; 83735; 83930; 83935; 84300; 84439; 84443; 84484; 85025; 85027; 87088; 87186; 93005; 93041; 94640; 94760; 96361; 96365; 96366; 96372; 96375; 96376; 97161; 97165; 97530; 97535; 99285; G0378; J0696; J1650; J1885; J2405; J2470; J3411; J3475

== ENCOUNTER 2024-11-20 11:44 | Emergency (ER) | payer MEDICARE, MEDICAID ==
[~2024-11-20 11:44] MED LIST changes: +GABA-1172; +LIDO5TD TD; +MIRA33506 PO; +OXYC-517 PO; +PANT40TA29 PO; +SENN-52 PO; +SUCR1TA PO; +med rec comment
[2024-11-20 12:23] LABS: BASO % 0.3 % (0.0-1.0); EOS # 0.1 10^3/uL (0.0-0.5); EOS % 1.2 % (0.0-3.0); HEMATOCRIT 37.3 % (42.0-52.0); LYMPH # 1.1 10^3/uL (1.5-5.0); MEAN CORPUSCULAR HEMOGLOBIN 31.1 pg (27.0-33.0); MEAN CORPUSCULAR HGB CONC 32.2 g/dl (32.0-36.5); MEAN CORPUSCULAR VOLUME 96.6 fl (80.0-96.0); MONO # 0.6 10^3/uL (0.0-0.8); MONO % 6.7 % (2.0-8.0); NEUTROPHILS # 7.1 10^3/uL (1.5-8.5); NEUTROPHILS % 79.2 % (36.0-66.0); PLATELET COUNT, AUTOMATED 338 10^3/uL (150-450); RED BLOOD COUNT 3.86 10^6/uL (4.30-6.10); WHITE BLOOD COUNT 8.9 10^3/uL (4.0-10.0)
[2024-11-20 12:44] LABS: INR 1.02; PROTHROMBIN TIME 13.8 SECONDS (12.5-14.5)
[2024-11-20 12:47] LABS: LIPASE 16 U/L (12-53)
[2024-11-20 12:49] LABS: ALBUMIN 2.9 G/DL (3.2-5.2); ALKALINE PHOSPHATASE 116 U/L (40-129); ALT/SGPT 25 U/L (7.0-40); AST/SGOT 43 U/L (<34); BILIRUBIN,DIRECT 0.3 MG/DL (<0.4); BILIRUBIN,TOTAL 0.8 MG/DL (0.3-1.2); BLOOD UREA NITROGEN 7 MG/DL (9-23); CALCIUM LEVEL 8.6 MG/DL (8.3-10.6); CARBON DIOXIDE LEVEL 30 MMOL/L (20-31); CHLORIDE LEVEL 97 MMOL/L (98-107); CREATININE FOR GFR 0.57 MG/DL (0.70-1.30); GLOMERULAR FILTRATION RATE > 60.0 (>49); GLUCOSE, FASTING 86 MG/DL (74-106); POTASSIUM SERUM 3.4 MMOL/L (3.5-5.1); SODIUM LEVEL 142 MMOL/L (136-145); TOTAL PROTEIN 6.6 G/DL (5.7-8.2)
[2024-11-20 12:56] LABS: ETHYL ALCOHOL (ETHANOL) 0.122 % (0.000-0.010)
[2024-11-20 12:57] LABS: PARTIAL THROMBOPLASTIN TIME 39.2 SECONDS (24.8-34.2)
[2024-11-20] MEDS: METOCLOPRAMIDE INJ 10MG/2ML VIAL IV ONE (12:57)
[2024-11-20] MEDS: MORPHINE 2 MG/ML 1ML VIAL IV ONE (12:58)
[2024-11-20] MEDS: PANTOPRAZOLE 40MG VIAL IV ONE (12:58)
[2024-11-20] MEDS ORDERED: ISOVUE-370 76% 100ML VIAL As Ordered ONE (13:00)
[2024-11-20] MEDS: NS (Normal Saline) 0.9% 1,000 ML IV SCH (14:40)
[2024-11-20 16:30] VITALS: BP 166/90; TEMP 98.1; O2SAT 95
== END 2024-11-20 16:34 | disposition short-term general hospital (02) ==
LOC: EDBD 11:44 → M ED 11:44
DX: K92.2 Gastrointestinal hemorrhage, unspecified (principal); J98.11 Atelectasis; J90 Pleural effusion, not elsewhere classified; K57.30 Diverticulosis of large intestine without perforation or abscess without bleeding; J44.9 Chronic obstructive pulmonary disease, unspecified; E78.5 Hyperlipidemia, unspecified; I10 Essential (primary) hypertension; F32.9 Major depressive disorder, single episode, unspecified; K21.9 Gastro-esophageal reflux disease without esophagitis; F10.10 Alcohol abuse, uncomplicated; F12.10 Cannabis abuse, uncomplicated; F17.200 Nicotine dependence, unspecified, uncomplicated; Z79.52 Long term (current) use of systemic steroids; Z79.899 Other long term (current) drug therapy; Z88.5 Allergy status to narcotic agent; Z91.048 Other nonmedicinal substance allergy status; Z88.8 Allergy status to other drugs, medicaments and biological substances
CPT/HCPCS: 74174; 80048; 80076; 82077; 83690; 85025; 85610; 85730; 86850; 86900; 86901; 93005; 93041; 94760; 96361; 96374; 96375; 99285; J2470; J2765; Q9967

== ENCOUNTER 2025-04-01 11:42 | Emergency (ER) | payer MEDICARE, MEDICAID ==
[~2025-04-01] VITALS: Ht 188 cm; Wt 90.9 kg
[~2025-04-01 11:42] MED LIST changes: +DIVA-41 PO; -DIVA500T94 PO; -FLOM0.4C39 PO; +LAMO-18; -LAMO25TA4; +LIDO1ADH93 TD; +LIDO1ADH93 TOP; -LIDO5DIS41 TD; -LIDO5DIS41 TOP; +LISI40TA10 PO; -LISI40TA4 PO; -PRAV80TA2 PO; +PRAV80TA75 PO; +TAMS-18 PO
[2025-04-01 13:57] LABS: KETONE, URINE AUTO RFX NEGATIVE (NEGATIVE); NITRITE, URINE AUTO RFX NEGATIVE (NEGATIVE); RBC, URINE AUTO RFX 0 /HPF (0-3); SQUAM EPITHELIAL CELL UR AURFX 0 /HPF (0-6); WBC, URINE AUTO RFX 2 /HPF (0-3)
[2025-04-01 14:01] LABS: LEUKOCYTE ESTERASE UR AUTO RFX TRACE (NEGATIVE)
[2025-04-01 14:13] LABS: BASO # 0.0 10^3/uL (0.0-0.2); BASO % 0.3 % (0.0-1.0); EOS # 0.1 10^3/uL (0.0-0.5); EOS % 1.3 % (0.0-3.0); LYMPH # 1.1 10^3/uL (1.5-5.0); LYMPH % 16.0 % (24.0-44.0); MONO # 0.6 10^3/uL (0.0-0.8); MONO % 8.2 % (2.0-8.0); NEUTROPHILS # 5.0 10^3/uL (1.5-8.5); NEUTROPHILS % 73.2 % (36.0-66.0); PLATELET COUNT, AUTOMATED 164 10^3/uL (150-450)
[2025-04-01] MEDS: NS (Normal Saline) 0.9% 1,000 ML IV ONE (14:23)
[2025-04-01 14:33] LABS: ETHYL ALCOHOL (ETHANOL) 0.248 % (0.000-0.010)
[2025-04-01 14:35] LABS: CPK CREATINE PHOSPHOKINASE 159 U/L (46-171)
[2025-04-01 14:36] LABS: ALT/SGPT 19 U/L (7.0-40); AST/SGOT 52 U/L (<34); CALCIUM LEVEL 8.5 MG/DL (8.3-10.6); CARBON DIOXIDE LEVEL 23 MMOL/L (20-31); CHLORIDE LEVEL 96 MMOL/L (98-107); CREATININE FOR GFR 0.59 MG/DL (0.70-1.30); GLOMERULAR FILTRATION RATE > 90.0 (>49); POTASSIUM SERUM 4.0 MMOL/L (3.5-5.1); SODIUM LEVEL 131 MMOL/L (136-145)
[2025-04-01 18:07] VITALS: BP 135/84; TEMP 98.3; O2SAT 96
== END 2025-04-01 18:10 | disposition home or self-care (01) ==
LOC: M ED 11:42 → EDBD 11:42 → M ED 18:10
DX: F10.120 Alcohol abuse with intoxication, uncomplicated (principal); S40.812A Abrasion of left upper arm, initial encounter; M19.012 Primary osteoarthritis, left shoulder; M47.812 Spondylosis without myelopathy or radiculopathy, cervical region; F31.9 Bipolar disorder, unspecified; I10 Essential (primary) hypertension; J44.9 Chronic obstructive pulmonary disease, unspecified; F12.10 Cannabis abuse, uncomplicated; F17.200 Nicotine dependence, unspecified, uncomplicated; Z88.5 Allergy status to narcotic agent; Z88.8 Allergy status to other drugs, medicaments and biological substances; Z91.048 Other nonmedicinal substance allergy status; Z79.52 Long term (current) use of systemic steroids; Z79.899 Other long term (current) drug therapy; Y92.009 Unspecified place in unspecified non-institutional (private) residence as the place of occurrence of the external cause; Y93.89 Activity, other specified; Y99.9 Unspecified external cause status